=== PATIENT | female | born 1940 | race Caucasian/White ===

== ENCOUNTER 2018-09-05 03:47 | Inpatient (IN) | payer OTHER ==
[2018-09-05 04:19] LABS: Absolute Lymphocytes (CBC) 1.7 K/uL (0.7-4.9); Absolute Neutrophil 12.3 K/uL (1.8-8.0); Basophils % 0.5 % (0-1.3); Hematocrit 44.7 % (36.0-45.0); Lymphocytes % 11.2 % (15.3-44.8); MPV 9.3 fL (7.6-11.3); Monocytes % 6.7 % (3.3-12.3); RBC Red Blood Cell Count 4.97 M/uL (3.86-4.86)
[2018-09-05] MEDS ORDERED: IPRATROPIUM BROM 0.5MG/2.5ML ONE (04:23)
[2018-09-05] MEDS ORDERED: ALBUTEROL 2.5 MG/3 ML NEB SOL ONE (04:23)
[2018-09-05 04:29] LABS: Protime INR 0.91
[2018-09-05] MEDS ORDERED: ONDANSETRON 4 MG/2 ML VIAL IV PRN (04:50)
[2018-09-05] MEDS ORDERED: MAGNESIUM HYDROXIDE 8% 30 ML PO PRN (04:50)
[2018-09-05] MEDS ORDERED: ACETAMINOPHEN 500 MG TAB PO PRN (04:50)
[2018-09-05 04:52] LABS: ALT/SGPT 64 U/L (12-78); AST/SGOT 51 U/L (15-37); Alkaline Phosphatase 118 U/L (45-117); BUN Blood Urea Nitrogen 11 mg/dL (7-18); Bicarbonate 27 mmol/L (21-32); Bilirubin Direct 0.1 mg/dL (0-0.2); Bilirubin Total 0.4 mg/dL (0.2-1.0); Glucose Level 141 mg/dL (74-106); Magnesium 2.2 mg/dL (1.8-2.4); NT PRO-BNP 557 pg/mL (<450); Potassium 3.8 mmol/L (3.5-5.1); Sodium Level 138 mmol/L (136-145); Troponin (Emerg Dept Use Only) < 0.02 ng/mL (0.0-0.045)
[2018-09-05] MEDS ORDERED: ACETAMINOPHEN 325 MG TABLET ONE ×2 (05:00→05:01)
[2018-09-05] MEDS: NA CHLORIDE 0.9% 1,000 ML IV SCH ×2 (05:00→10:38)
--- NOTE | 2018-09-05 05:12 | EDPHYS ---
Physician Documentation [facility] Name: Sirena Nolan Age: 78 yrs Sex: Female : 1940 Arrival Date: 09/05/2018 Time: 03:49 Bed 4 Private MD: Maryam Brown ED Physician Robinson Brooks HPI: 09/05 04:58 This 78 yrs old Female presents to ER via Wheelchair with complaints of gs Breathing Difficulty. 04:58 The patient has shortness of breath at rest. Onset: The symptoms/episode began/occurred gs gradually, 2 day(s) ago, and became worse and became persistent. Duration: The symptoms are continuous. The patient's shortness of breath is aggravated by nothing, is alleviated by nothing. Associated signs and symptoms: Pertinent positives: non-productive cough, productive cough, fever, Pertinent negatives: chest pain. Severity of symptoms: At their worst the symptoms were severe in the emergency department the symptoms are unchanged. The patient has experienced similar episodes in the past, multiple times. The patient has not recently seen a physician. Historical: - Allergies: 04:23 Codeine; rr5 04:23 Prednisone; rr5 - Home Meds: 04:23 Protonix 40 mg Oral grps [Active]; Lexapro 20 mg Oral tab [Active]; sertraline 50 mg rr5 oral tab [Active]; atorvastatin 10 mg oral tab [Active]; Primidone Oral [Active]; topiramate oral oral [Active]; anoro 62.5/25mg [Active]; Ventolin Rotahaler/Rotacaps Inhl [Active]; Aspirin Oral [Active]; Vitamin D Oral [Active]; Vitamin B-12 Oral 1,000 mcg [Active]; ferrous sulfate 325 mg (65 mg iron) Oral tab [Active]; melatonin 10 mg Oral cap [Active]; - PMHx: 04:23 Anxiety; COPD; essential body tremors; Hypertension; Myocardial infarction; Pneumonia; rr5 - PSHx: 04:23 Hysterectomy; Tonsillectomy; adnoid surgery; Appendectomy; rr5 - Immunization history:: Adult Immunizations up to date, Flu vaccine is up to date. - Social history:: Smoking status: Patient uses tobacco products, 4 sticks per day, Patient uses alcohol, occasionally. Patient/guardian denies using street drugs. - Ebola Screening: : Patient negative for fever greater than or equal to 101.5 degrees Fahrenheit, and additional compatible Ebola Virus Disease symptoms Patient denies exposure to infectious person Patient denies travel to an Ebola-affected area in the 21 days before illness onset. ROS: 04:58 All other systems are negative. gs Exam: 04:58 Head/Face: Normocephalic, atraumatic. Eyes: Pupils equal round and reactive to light, gs extra-ocular motions intact. Lids and lashes normal. Conjunctiva and sclera are non-icteric and not injected. Cornea within normal limits. Periorbital areas with no swelling, redness, or edema. ENT: Nares patent. No nasal discharge, no septal abnormalities noted. Tympanic membranes are normal and external auditory canals are clear. Oropharynx with no redness, swelling, or masses, exudates, or evidence of obstruction, uvula midline. Mucous membranes moist. Neck: Trachea midline, no thyromegaly or masses palpated, and no cervical lymphadenopathy. Supple, full range of motion without nuchal rigidity, or vertebral point tenderness. No Meningismus. Chest/axilla: Normal chest wall appearance and motion. Nontender with no deformity. No lesions are appreciated. 04:58 Abdomen/GI: Soft, non-tender, with normal bowel sounds. No distension or tympany. No guarding or rebound. No evidence of tenderness throughout. Back: No spinal tenderness. No costovertebral tenderness. Full range of motion. Skin: Warm, dry with normal turgor. Normal color with no rashes, no lesions, and no evidence of cellulitis. MS/ Extremity: Pulses equal, no cyanosis. Neurovascular intact. Full, normal range of motion. Neuro: Awake and alert, GCS 15, oriented to person, place, time, and situation. Cranial nerves II-XII grossly intact. Motor strength 5/5 in all extremities. Sensory grossly intact. Cerebellar exam normal. Normal gait. 04:58 Constitutional: The patient appears alert, awake. 04:58 Constitutional: The patient appears in obvious distress, severely distressed. 04:58 Cardiovascular: Rate: tachycardic, Rhythm: regular, Pulses: no pulse deficits are appreciated, Heart sounds: normal. 04:58 ECG was reviewed by the Attending Physician. 04:58 Respiratory: moderate respiratory distress is noted, Respirations: tachypnea, Breath sounds: are clear throughout. Vital Signs: 03:55 BP 168 / 77; Pulse 112; Resp 28; Temp 98.9; Pulse Ox 90% on 3 lpm NC; rr5 04:00 Pulse Ox 92% on 4 lpm NC; rr5 04:25 BP 132 / 70; Pulse 99; Resp 25; Pulse Ox 100% on 3 lpm NC; Weight 44.91 kg; Height 5 rr5 ft. 4 in. (162.56 cm); Pain 0/10; 06:23 BP 118 / 64; Pulse 105; Resp 21; Pulse Ox 95% on 2 lpm NC; ea 04:25 Body Mass Index 16.99 (44.91 kg, 162.56 cm) rr5 MDM: 04:05 Patient medically screened. 05:07 Differential diagnosis: Bronchitis CHF exacerbation, Chronic Obstructive Pulmonary gs Disease Myocardial Infarction. Data reviewed: vital signs, nurses notes, and as a result, I will admit patient. Counseling: I had a detailed discussion with the patient and/or guardian regarding: the historical points, exam findings, and any diagnostic results supporting the discharge/admit diagnosis, lab results, radiology results, the need for further work-up and treatment in the hospital. 09/05 04:06 Order name: Basic Metabolic Panel; Complete Time: 05:06 09/05 04:06 Order name: CBC with Diff; Complete Time: 05:06 09/05 04:06 Order name: LFT's; Complete Time: 05:06 09/05 04:06 Order name: Magnesium; Complete Time: 05:06 09/05 04:06 Order name: NT PRO-BNP; Complete Time: 05:06 09/05 04:06 Order name: PT-INR; Complete Time: 05:06 09/05 04:06 Order name: Troponin (emerg Dept Use Only); Complete Time: 05:06 09/05 04:56 Order name: CBC with Automated Diff EDMS 09/05 04:56 Order name: CBC with Automated Diff EDMS 09/05 04:56 Order name: Comprehensive Metabolic Panel EDMS 09/05 04:56 Order name: Comprehensive Metabolic Panel EDMS 09/05 04:56 Order name: Lipid Profile EDMS 09/05 04:56 Order name: Lipid Profile EDMS 09/05 04:56 Order name: Magnesium EDMS 09/05 04:06 Order name: XRAY Chest (1 view) 09/05 04:06 Order name: EKG; Complete Time: 04:08 09/05 04:06 Order name: Cardiac monitoring; Complete Time: 04:10 09/05 04:06 Order name: EKG - Nurse/Tech; Complete Time: 04:10 09/05 04:06 Order name: IV Saline Lock; Complete Time: 04:17 09/05 04:06 Order name: Labs collected and sent; Complete Time: 04:12 09/05 04:56 Order name: CONS Physician Consult EDMS 09/05 04:56 Order name: Regular EDMS 09/05 04:56 Order name: Magnesium EDMS 09/05 04:56 Order name: Phosphorus EDMS 09/05 04:56 Order name: Phosphorus EDMS 09/05 05:07 Order name: Blood Culture* 09/05 04:06 Order name: O2 Per Protocol; Complete Time: 04:35 09/05 04:06 Order name: O2 Sat Monitoring; Complete Time: 04:35 EC:58 Rate is 98 beats/min. Rhythm is regular. RI interval is normal. QRS interval is normal. gs QT interval is normal. ST Segment is depressed in leads II, III, aVF. Clinical impression: NSR w/ Non-specific ST/T Changes. Interpreted by me. Administered Medications: 04:13 Drug: Albuterol 2.5 mg Route: Inhalation; ea 04:13 Drug: AtroVENT Aerosol 0.5 mg Route: Inhalation; ea 04:54 Drug: Tylenol 650 mg Route: PO; ea 05:30 Follow up: Response: No adverse reaction; Pain is decreased ea 05:18 Drug: LevaQUIN 750 mg Volume: 150 ml; Route: IVPB; Infused Over: 90 mins; Site: left ea antecubital; Disposition: 05:07 Critical Care:. Disposition: 09/05/18 05:10 Hospitalization ordered by Demetrio Wilkins for Inpatient Admission. Preliminary diagnosis are Mild persistent asthma with (acute) exacerbation, Hypoxemia. - Bed requested for Telemetry/MedSurg (Inpatient). - Status is Inpatient Admission. iw - Condition is Stable. - Problem is an acute exacerbation. - Symptoms have improved. UTI on Admission? No Critical care time excluding procedures: 05:07 Critical care time: Bedside Care: 10 minutes, Consultation: 10 minutes, Family gs Intervention: 10 minutes. Total time: 30 minutes Signatures: Dispatcher [employer] EDMS Yashira Reardon RN RN Matilde Contreras RN Diya Moore RN CHRISTAL iw Renetta Royal, RN Robinson Hercules ea, MD MD gs Roque, Raymond RN RN rr5 Corrections: (The following items were deleted from the chart) 05:29 05:10 Hospitalization Ordered by Demetrio Wilkins MD for Inpatient Admission. Preliminary diagnosis is Mild persistent asthma with (acute) exacerbation; Hypoxemia. Bed requested for Telemetry/MedSurg (Inpatient). Status is Inpatient Admission. Condition is Stable. Problem is an acute exacerbation. Symptoms have improved. UTI on Admission? No. gs 08:30 05:29 09/05/2018 05:10 Hospitalization Ordered by Demetrio Wilkins MD for Inpatient iw Admission. Preliminary diagnosis is Mild persistent asthma with (acute) exacerbation; Hypoxemia. Bed requested for Telemetry/MedSurg (Inpatient). Status is Inpatient Admission. Condition is Stable. Problem is an acute exacerbation. Symptoms have improved. UTI on Admission? No. mw
--- NOTE | 2018-09-05 05:12 | ER ---
Nurse's Notes [facility] Name: Sirena Nolan Age: 78 yrs Sex: Female : 1940 Arrival Date: 09/05/2018 Time: 03:49 Bed 4 Private MD: Maryam Brown Diagnosis: Mild persistent asthma with (acute) exacerbation;Hypoxemia Presentation: 09/05 03:55 Presenting complaint: Patient states: I started having difficulty of breathing then few rr5 hours ago I vomited fresh blood i don't know if that is because I'm coughing too much with phlegm. 03:55 Transition of care: patient was not received from another setting of care. Onset of rr5 symptoms was September 05, 2018. Risk Assessment: Do you want to hurt yourself or someone else? Patient reports no desire to harm self or others. Initial Sepsis Screen: Does the patient meet any 2 criteria? No. Patient's initial sepsis screen is negative. Does the patient have a suspected source of infection? No. Patient's initial sepsis screen is negative. Note in via wheelchair with oxygen attached at 2 liters via nasal cannula. Care prior to arrival: oxygen therapy. 03:55 Method Of Arrival: Wheelchair rr5 03:55 Acuity: AISHA 3 rr5 Triage Assessment: 04:00 General: Appears uncomfortable, Behavior is anxious, restless. Respiratory: Reports ea shortness of breath at rest Airway is patent Respiratory effort is labored, Respiratory pattern is tachypnea the patient has moderate shortness of breath. Respiratory: Onset: The symptoms/episode began/occurred this morning. Respiratory: Breath sounds are diminished in left posterior lower lobe and right posterior middle lobe. Derm: Skin is dry, Skin is pale, Skin temperature is warm. Historical: - Allergies: 04:23 Codeine; rr5 04:23 Prednisone; rr5 - Home Meds: 04:23 Protonix 40 mg Oral grps [Active]; Lexapro 20 mg Oral tab [Active]; sertraline 50 mg rr5 oral tab [Active]; atorvastatin 10 mg oral tab [Active]; Primidone Oral [Active]; topiramate oral oral [Active]; anoro 62.5/25mg [Active]; Ventolin Rotahaler/Rotacaps Inhl [Active]; Aspirin Oral [Active]; Vitamin D Oral [Active]; Vitamin B-12 Oral 1,000 mcg [Active]; ferrous sulfate 325 mg (65 mg iron) Oral tab [Active]; melatonin 10 mg Oral cap [Active]; - PMHx: 04:23 Anxiety; COPD; essential body tremors; Hypertension; Myocardial infarction; Pneumonia; rr5 - PSHx: 04:23 Hysterectomy; Tonsillectomy; adnoid surgery; Appendectomy; rr5 - Immunization history:: Adult Immunizations up to date, Flu vaccine is up to date. - Social history:: Smoking status: Patient uses tobacco products, 4 sticks per day, Patient uses alcohol, occasionally. Patient/guardian denies using street drugs. - Ebola Screening: : Patient negative for fever greater than or equal to 101.5 degrees Fahrenheit, and additional compatible Ebola Virus Disease symptoms Patient denies exposure to infectious person Patient denies travel to an Ebola-affected area in the 21 days before illness onset. Screenin:00 Abuse screen: Denies threats or abuse. Denies injuries from another. Nutritional rr5 screening: No deficits noted. Tuberculosis screening: No symptoms or risk factors identified. Fall Risk IV access (20 points). Gait- Normal/Bed Rest/Wheelchair (0 pts) Total Goff Fall Scale indicates No Risk (0-24 pts). Assessment: 04:00 General: Appears distressed, uncomfortable, Behavior is calm, cooperative, appropriate rr5 for age. Pain: Denies pain. 04:00 Neuro: Level of Consciousness is awake, alert, obeys commands, Oriented to person, rr5 place, time, situation, Appropriate for age. Cardiovascular: Rhythm is sinus tachycardia. Respiratory: Airway is patent Respiratory effort is even, with nasal flaring, pursed lip. GI: No signs and/or symptoms were reported involving the gastrointestinal system. : No signs and/or symptoms were reported regarding the genitourinary system. EENT: No signs and/or symptoms were reported regarding the EENT system. Derm: Skin is intact, Skin temperature is warm. Musculoskeletal: Capillary refill < 3 seconds, Range of motion: intact in all extremities. 04:20 Reassessment: Patient appears in no apparent distress at this time. I feel much better rr5 now. maintaining on oxygen therapy Patient states feeling better. Patient states symptoms have improved. 05:10 Reassessment: Patient appears in no apparent distress at this time. dr. paredes came and rr5 assess the patient and explained the need for admission, patient agreed with the plan. Patient states feeling better. Patient states symptoms have improved. 05:54 Reassessment: Patient and/or family updated on plan of care and expected duration. Pain ea level reassessed. Pt resting with eyes closed, respirations even and unlabored, chest expansions even and symmetrical. No s/s of pain or discomfort noted at this time. 06:23 Reassessment: Patient and/or family updated on plan of care and expected duration. Pain ea level reassessed. Patient is alert, oriented x 3, equal unlabored respirations, skin warm/dry/pink. Patient states symptoms have improved. Vital Signs: 03:55 BP 168 / 77; Pulse 112; Resp 28; Temp 98.9; Pulse Ox 90% on 3 lpm NC; rr5 04:00 Pulse Ox 92% on 4 lpm NC; rr5 04:25 BP 132 / 70; Pulse 99; Resp 25; Pulse Ox 100% on 3 lpm NC; Weight 44.91 kg; Height 5 rr5 ft. 4 in. (162.56 cm); Pain 0/10; 06:23 BP 118 / 64; Pulse 105; Resp 21; Pulse Ox 95% on 2 lpm NC; ea 04:25 Body Mass Index 16.99 (44.91 kg, 162.56 cm) rr5 ED Course: 03:49 Patient arrived in ED. am2 03:50 Maryam Brown MD is Private Physician. am2 03:58 Keshav Allison, CHRISTAL is Primary Nurse. rr5 04:00 Arm band placed on. EKG completed in triage. Results shown to MD. rr5 04:00 Patient has correct armband on for positive identification. Placed in gown. Bed in low ea position. Call light in reach. Side rails up X2. 04:01 Triage completed. rr5 04:05 Robinson Brooks MD is Attending Physician. gs 04:10 Inserted saline lock: 20 gauge in left antecubital area, using aseptic technique. Blood rr5 collected. 04:16 Initial Neb Treatment Given as ordered Patient was instructed and evaluated on rr5 procedure Patient tolerated procedure well without adverse effect. 04:20 X-ray completed. Portable x-ray completed in exam room. Patient tolerated procedure kw well. 04:21 XRAY Chest (1 view) In Process Unspecified. EDMS 05:10 Demetrio Paredes MD is Hospitalizing Provider. 05:54 Patient admitted, IV remains in place. ea 05:54 No provider procedures requiring assistance completed. ea 08:30 Primary Nurse role handed off by Keshav Allison, RN iw 08:30 Diya Harris, RN is Primary Nurse. iw Administered Medications: 04:13 Drug: Albuterol 2.5 mg Route: Inhalation; ea 04:13 Drug: AtroVENT Aerosol 0.5 mg Route: Inhalation; ea 04:54 Drug: Tylenol 650 mg Route: PO; ea 05:30 Follow up: Response: No adverse reaction; Pain is decreased ea 05:18 Drug: LevaQUIN 750 mg Volume: 150 ml; Route: IVPB; Infused Over: 90 mins; Site: left ea antecubital; Outcome: 05:10 Decision to Hospitalize by Provider. gs 05:54 Instructed on the need for admit, Demonstrated understanding of instructions. ea 08:30 Patient left the ED. iw 08:30 Admitted to Med/surg accompanied by tech. iw 08:30 Condition: good Signatures: Dispatcher [employer] EDMS Diya Harris, CHRISTAL SIEGEL Dalia Gaines Amanda am2 Renetta Royal RN RN ea Starr, Gregory, MD MD Keshav Allison, RN RN rr5
[2018-09-05] MEDS ORDERED: Levofloxacin 750mg IV 750 MG/150 ML BAG IV ONE (05:20)
[2018-09-05] MEDS ORDERED: METHYLPREDNISOLONE 125 MG INJ IV ONE (06:41)
--- NOTE | 2018-09-05 07:23 | EKG ---
Test Date: 2018-09-05 Test Time: 03:58:57 Customer Business Manager: JOHN MEASUREMENT RESULTS: Intervals: Rate: 98 GA: 144 QRSD: 72 QT: 358 QTc: 457 [place]: P: 83 GA: 144 QRS: 46 T: 33 INTERPRETIVE STATEMENTS: Normal sinus rhythm Normal ECG Compared to ECG 04/22/2016 14:23:03 Sinus arrhythmia no longer present ST (T wave) deviation no longer present Possible ischemia no longer present Electronically Signed On 09-05-18 07:14:52 TICKETING AGENT by Jones Dunne
[2018-09-05] MEDS: ALBUTEROL 2.5 MG/3 ML NEB SOL NEB SCH ×3 (08:00→20:15)
[2018-09-05] MEDS: IPRATROPIUM BROM 0.5MG/2.5ML NEB SCH ×3 (08:00→20:15)
--- NOTE | 2018-09-05 08:22 | RAD REPORT ---
EXAM DESCRIPTION: RAD - Chest Single View - 09/05/2018 4:24 am CLINICAL HISTORY: CHEST PAIN Chest pain. COMPARISON: Chest Single View dated 04/22/2016; Chest Single View dated 02/27/2016; Chest Single View dated 02/22/2016; Chest Single View dated 02/20/2016 FINDINGS: Portable technique limits examination quality. Prominent emphysematous changes are present throughout the lungs. Mild reticular opacities both lung bases are likely chronic, although mild superimposed pneumonitis is possible. The heart is normal in size. No displaced fractures.
[2018-09-05] MEDS ORDERED: AZITHROMYCIN IV 250 MG in NA CHLORIDE 0.9% 250 ML IVPB SCH (09:00)
[2018-09-05] MEDS ORDERED: CEFTRIAXONE/SWI 1gm 1 GM/10 ML SYR IV SCH (09:00)
[2018-09-05 09:46] VITALS: BMI 16.9
[2018-09-05] MEDS ORDERED: CEFTRIAXONE 1 GM/NS 50 ML 1 GM/50 ML BAG IV SCH (10:00)
--- NOTE | 2018-09-05 10:08 | P.HP ---
Certification for Inpatient Patient admitted to: Inpatient With expected LOS: >2 Midnights Patient will require the following post-hospital care: None Practitioner: I am a practitioner with admitting privileges, knowledge of patient current condition, hospital course, and medical plan of care. Services: Services provided to patient in accordance with Admission requirements found in Title 42 Section 412.3 of the Code of Federal Regulations Patient History Date of Service: 09/05/18 Reason for admission: COPD exacerbation with left lower lobe pneumonia History of Present Illness: Patient is a 78-year-old female who came to the hospital with shortness of breath. Patient wheezing and congestion. She was found to have a COPD exacerbation. Patient was also seen to have a left lower lobe pneumonia on her chest x-ray. She was started on IV antibiotics. Patient was also given nebs and steroids in the ER. She was given gentle hydration as well. She will be admitted to the hospital for further evaluation. She is scheduled for an MRI tomorrow at 2:30 a.m. as an outpatient. If she is feeling better we can discharge her prior then but otherwise she will have to reschedule. Allergies codeine Allergy (Verified 01/23/16 13:58) Itching prednisone Allergy (Verified 01/23/16 13:58) elevated heart rate Home Medications: Topiramate [Topamax*] 100 mg PO DAILY 10/17/15 Topiramate [Topamax*] 200 mg PO BEDTIME 10/17/15 Levetiracetam [Keppra] 500 mg PO BID #60 tablet 11/05/15 Magnesium Oxide [Mag 0X*] 400 mg PO BID #60 tab 11/05/15 Metoprolol Tartrate [Lopressor*] 25 mg PO BID 6AM 6PM #60 tab 11/05/15 Pantoprazole [Protonix Tab*] 40 mg PO DAILYAC #30 tab 11/05/15 clonazePAM [Klonopin*] 0.5 mg PO BID #60 tab 11/05/15 Escitalopram [Lexapro*] 20 mg PO DAILY 01/17/16 Primidone [Mysoline *] 50 mg PO BID 01/17/16 Primidone [Mysoline *] 250 mg PO BID 01/17/16 Chlorhexidine Gluconate [Hibiclens] 15 ml TP DAILY #1 liquid 02/26/16 Dexamethasone [Decadron*] 2 mg PO BID #10 tab 02/26/16 Ipratropium Neb [Atrovent*] 0.5 mg IH [id number] PRN #90 amp 02/26/16 Mupirocin Cream [Bactroban 2% Cream] 15 appl TOP DAILY #60 tube 02/26/16 Smz./Tmp. [Bactrim Ds 800 MG/160 MG*] 1 tab PO BID #10 tab 02/26/16 levoFLOXacin [Levaquin*] 500 mg PO DAILY #5 tab 02/26/16 - Past Medical/Surgical History Has patient received pneumonia vaccine in the past: Yes Diabetic: No -: Severe COPD -: Essential tremors, Neurology-Dr. 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 - Family History Mother Medical History: Heart disease, Other (see notes) Father Medical History: Cancer Brother Medical History: Other (see notes) Notes: Parkinson's - Social History Smoking Status: Former smoker Alcohol use: Yes CD- Drugs: No Caffeine use: Yes Place of Residence: Home Review of Systems 10-point ROS is otherwise unremarkable Physical Examination - Vital Signs Temperature: 98.9 F Blood Pressure: 118/64 Pulse: 105 Respirations: 21 Pulse Ox (%): 98 - Physical Exam General: Alert, In no apparent distress, Oriented x3 HEENT: Atraumatic, PERRLA, Mucous membr. moist/pink, EOMI, Sclerae nonicteric Neck: Supple, 2+ carotid pulse no bruit, No LAD, Without JVD or thyroid abnormality Respiratory: Diminished, Expiratory wheezes Cardiovascular: Regular rate/rhythm, Normal S1 S2 Gastrointestinal: Normal bowel sounds, Soft and benign, Non-distended, No tenderness Musculoskeletal: No swelling, No contractures, No tenderness Integumentary: No rashes Neurological: Normal gait, Normal speech, Normal tone, Sensation intact, Cranial nerves 3-12 intact, Normal affect, Abnormal strength Lymphatics: No axilla or inguinal lymphadenopathy - Studies Laboratory Data (last 24 hrs) 09/05/18 04:11: PT 10.7, INR 0.91 09/05/18 04:11: WBC 15.4 H, Hgb 14.9, Hct 44.7, Plt Count 210 09/05/18 04:11: Sodium 138, Potassium 3.8, BUN 11, Creatinine 0.75, Glucose 141 H, Magnesium 2.2, Total Bilirubin 0.4, AST 51 H, ALT 64, Alkaline Phosphatase 118 H Assessment & Plan - Problems (Diagnosis) (1) COPD exacerbation Onset Date: 10/17/15 Current Visit: No Status: Acute (2) Pneumonia Onset Date: 11/06/15 Current Visit: No Status: Acute (3) Seizure as late effect of cerebrovascular accident (CVA) Current Visit: No Status: Acute (4) Anxiety Onset Date: 02/20/16 Current Visit: No Status: Chronic (5) Essential tremor Onset Date: 02/20/16 Current Visit: No Status: Chronic (6) Atrial fibrillation Onset Date: 02/20/16 Current Visit: No Status: Ruled-out Qualifiers: - Plan Plan: 1. Continue with IV antibiotics 2. Awaiting sputum and blood culture; 3. Repeat chest x-ray in AM 4. Will order CT scan of the chest if pneumonia is not improving 5. Monitor respiratory status closely 6. Continue with nebs as needed 7. O2 per protocol 8. Continue with gentle hydration 9. Repeat labs including CBC and renal function in a.m. 10. GI and DVT prophylaxis Discharge Plan: Home Plan to discharge in: Greater than 2 days - Advance Directives Does patient have a Living Will: No Does patient have a Durable POA for Healthcare: No - Code Status/Comfort Care Code Status Assessed: Yes Code Status: Full Code Critical Care: No Time Spent Managing PTS Care (In Minutes): 50
[2018-09-05] MEDS: ENOXAPARIN 40 MG/0.4 ML SQ SCH (10:39)
--- NOTE | 2018-09-05 12:41 | P.CNS ---
Date of Consult: 09/05/18 Chief Complaint: COPD EXACERBATION History of Present Illness: PATIENT IS 78 YEARS OF AGE WELL KNOWN TO ME WITH A HISTORY OF COPD STILL CONTINUES TO SMOKE UNDER HAS BEEN HAVING PROBLEMS FOR THE PAST 3-4 WEEKS WORSE OVER THE PAST 2-3 DAYS COMPLAINING OF SHORTNESS OF BREATH PRODUCTIVE COUGH SPUTUM CHANGE IN COLOR ALSO HAS SOME HEMOPTYSIS THIS 1 TIME. PATIENT IS COMPLIANT WITH IT INHALERS AT HOME Allergies codeine Allergy (Verified 01/23/16 13:58) Itching prednisone Allergy (Verified 01/23/16 13:58) elevated heart rate Home Medications: Topiramate [Topamax*] 100 mg PO BID 10/17/15 Pantoprazole [Protonix Tab*] 40 mg PO DAILYAC #30 tab 11/05/15 clonazePAM [Klonopin*] 0.5 mg PO BID #60 tab 11/05/15 Escitalopram [Lexapro*] 20 mg PO DAILY 01/17/16 Primidone [Mysoline *] 250 mg PO BID 01/17/16 Albuterol Sulfate [Ventolin Hfa] 1 in IN BID PRN 09/05/18 Aspirin 81 mg PO DAILY 09/05/18 Atorvastatin Calcium [Lipitor] 10 mg PO DAILY 09/05/18 Cholecalciferol (Vitamin D3) [Vitamin D 1000 Iu Tab] 2,000 unit PO DAILY Ferrous Sulfate [Iron] 325 mg PO DAILY 09/05/18 Sertraline [Zoloft] 50 mg PO DAILY 09/05/18 Umeclidinium Brm/Vilanterol Tr [Anoro Ellipta 62.5-25 Mcg INH] 1 each IH DAILY 09/05/18 - Past Medical/Surgical History Diabetic: No -: Severe COPD -: Essential tremors, Neurology-Dr. 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 - Family History Mother Medical History: Heart disease, Other (see notes) Father Medical History: Cancer Brother Medical History: Other (see notes) Notes: Parkinson's - Social History Smoking Status: Unknown if ever smoked Alcohol use: Yes CD- Drugs: No Caffeine use: Yes Place of Residence: Home Review of Systems 10-point ROS is otherwise unremarkable General: Weakness Respiratory: Cough, Shortness of Breath Physical Examination Temp Pulse Resp BP Pulse Ox 98.9 F 105 H 21 H 118/64 98 09/05/18 10:09 09/05/18 10:09 09/05/18 10:09 09/05/18 10:09 09/05/18 10:09 General: Alert, Mild distress HEENT: Atraumatic Respiratory: Expiratory wheezes Cardiovascular: No edema, Regular rate/rhythm, Normal S1 S2 Gastrointestinal: Normal bowel sounds, Soft and benign Laboratory Data (last 24 hrs) 09/05/18 04:11: PT 10.7, INR 0.91 09/05/18 04:11: WBC 15.4 H, Hgb 14.9, Hct 44.7, Plt Count 210 09/05/18 04:11: Sodium 138, Potassium 3.8, BUN 11, Creatinine 0.75, Glucose 141 H, Magnesium 2.2, Total Bilirubin 0.4, AST 51 H, ALT 64, Alkaline Phosphatase 118 H - Problems (1) COPD exacerbation Onset Date: 10/17/15 Current Visit: No Status: Acute Plan: Patient is 78 years of age admitted with a presumed COPD exacerbation patient's white count is mildly elevated chest x-ray COPD changes questionable pneumonia will repeat AP and lateral chest x-ray change to p.o. antibiotics and p.o. steroids continue with bronchodilators cannot excluded pneumonia however she is clinically stable eating and drinking to tolerate p.o. antibiotics patient is compliant with the bronchodilators
[2018-09-05] MEDS: levoFLOXacin 500 MG TAB PO SCH (14:38)
--- NOTE | 2018-09-05 14:41 | RAD REPORT ---
EXAM DESCRIPTION: RAD - Chest Pa And Lat (2 Views) - 09/05/2018 2:35 pm CLINICAL HISTORY: Possible pneumonia Chest pain. COMPARISON: Chest Single View dated 09/05/2018; Chest Single View dated 04/22/2016; Chest Single View d ated 02/27/2016; Chest Single View dated 02/22/2016 TECHNIQUE: PA and lateral views of the chest were obtained. FINDINGS: The lungs are hyperexpanded compatible with COPD. The heart is upper limit of normal in si ze. No fracture or aggressive bony process. IMPRESSION: COPD without acute process identified.
[2018-09-05] MEDS: ATORVASTATIN 10 MG TAB PO SCH (21:19)
[2018-09-05] MEDS: TOPIRAMATE 100 MG TAB PO SCH (21:20)
[2018-09-05] MEDS: DEXAMETHASONE 4 MG TAB PO SCH (21:20)
[2018-09-05] MEDS: PRIMIDONE 250 MG TAB PO SCH (21:20)
[2018-09-05] MEDS: clonazePAM 0.5 MG TAB PO SCH (22:04)
[2018-09-06] MEDS: IPRATROPIUM BROM 0.5MG/2.5ML NEB SCH ×4 (02:02→19:48)
[2018-09-06] MEDS: ALBUTEROL 2.5 MG/3 ML NEB SOL NEB SCH ×4 (02:02→19:48)
[2018-09-06] MEDS: PANTOPRAZOLE 40MG TABLET PO SCH (05:45)
[2018-09-06 05:59] LABS: Absolute Lymphocytes (CBC) 1.5 K/uL (0.7-4.9); Absolute Monocytes 1.1 K/uL (0.1-1.3); Absolute Neutrophil 12.4 K/uL (1.8-8.0); Basophils % 0.3 % (0-1.3); Hematocrit 36.1 % (36.0-45.0); Lymphocytes % 10.1 % (15.3-44.8); MPV 9.6 fL (7.6-11.3); RBC Red Blood Cell Count 4.03 M/uL (3.86-4.86)
[2018-09-06 06:23] LABS: Albumin 2.9 g/dL (3.4-5.0); Bilirubin Total 0.4 mg/dL (0.2-1.0); Magnesium 2.1 mg/dL (1.8-2.4); Phosphorus 3.1 mg/dL (2.5-4.9); Potassium 4.1 mmol/L (3.5-5.1); Protein, Total 6.3 g/dL (6.4-8.2)
--- NOTE | 2018-09-06 08:58 | P.PN ---
Subjective Date of Service: 09/06/18 Chief Complaint: COPD EXACERBATION No change in her condition still complains of shortness of breath productive cough and she had a gain had hemoptysis chest x-ray did not show any evidence of pneumonia complaining of shaking chills white count is mildly elevated Review of Systems General: Weakness Respiratory: Cough, Shortness of Breath Physical Examination - Vital Signs Temperature: 98.5 F Blood Pressure: 119/70 Pulse: 74 Respirations: 20 Pulse Ox (%): 95 - Physical Exam General: Alert, Oriented x3 HEENT: Atraumatic Neck: Supple Respiratory: Expiratory wheezes Cardiovascular: No edema, Regular rate/rhythm, Normal S1 S2 Gastrointestinal: Normal bowel sounds, Soft and benign Assessment & Plan - Problems (Diagnosis) (1) COPD exacerbation Onset Date: 10/17/15 Current Visit: No Status: Acute Plan: Patient is 78 years of age admitted with COPD exacerbation still complaining of hemoptysis chest x-ray PA and lateral does not show any evidence of pneumonia complains of some chills continue with present medications CT chest without contrast sputum culture (2) Aspiration of foreign body in respiratory tract Current Visit: Yes Status: Acute Plan: On CT scan there is a heavily calcified density in the right lower lobe which was not present before according to the patient she denies aspirating at both she does not recall any incidence of aspiration will plan to do a bronchoscopy tomorrow I have informed the patient that if I am not able to remove she be transferred to [place] Discussed with patient the risks and benefit of bronchoscopy she is high risk due to her severe COPD
[2018-09-06] MEDS: PRIMIDONE 250 MG TAB PO SCH ×2 (09:22→21:02)
[2018-09-06] MEDS: ESCITALOPRAM 20 MG TAB PO SCH (09:23)
[2018-09-06] MEDS: DEXAMETHASONE 4 MG TAB PO SCH ×2 (09:23→21:02)
[2018-09-06] MEDS: SERTRALINE HCL 50 MG TAB PO SCH (09:23)
[2018-09-06] MEDS: clonazePAM 0.5 MG TAB PO SCH ×2 (09:24→21:02)
[2018-09-06] MEDS: TOPIRAMATE 100 MG TAB PO SCH ×2 (09:24→21:02)
[2018-09-06] MEDS: FERROUS SULFATE 325 MG TAB PO SCH (09:24)
[2018-09-06] MEDS: ASPIRIN 81 MG CHEWABLE TABLET PO SCH (09:25)
[2018-09-06] MEDS: ENOXAPARIN 40 MG/0.4 ML SQ SCH (09:25)
[2018-09-06] MEDS: levoFLOXacin 500 MG TAB PO SCH (09:25)
--- NOTE | 2018-09-06 11:14 | RAD REPORT ---
EXAM DESCRIPTION: CT - Thorax Wo Con CLINICAL HISTORY: Chest pain Hemoptysis COPD COMPARISON: Chest For Pe Angio dated 02/19/2016; Chest Pa And Lat (2 Views) dated 09/05/2018; Chest Sin gle View dated 09/05/2018; Head C Spine Cap W Con dated 04/22/2016 FINDINGS: Prominent emphysematous changes are present throughout the lungs. Linear scarring is noted in the right lung base. Subtle area of tree-in-bud opacity and pleural based irregular opacity noted in the superior segment right lower lobe. A heavily calcified 15 mm structure is present in the post erior right lower lobe bronchus (image 32/66). This is possibly an aspirated tooth, clinical correlat ion is recommended. This finding was not present on comparative CT chest. No pleural thickening or pl eural effusion. No pneumothorax. No axillary, mediastinal or hilar adenopathy. No concerning bony finding. No gross upper abdominal finding. All CT scans are performed using dose optimization technique as appropriate and may include automated exposure control or mA/KV adjustment according to patient size. IMPRESSION: Prominent COPD noted. Heavily calcified 15 mm lesion within the right posterior bronchus has the appearance of an aspirated tooth. Advise clinical correlation. Findings were discussed Dr. Bethea 11:10 a.m. 09/06/2018 by telephone.
--- NOTE | 2018-09-06 20:14 | PN ---
Date of Progress Note: 09/06/2018 Subjective: The patient is seen and examined. Chart reviewed and case discussed with RN and Dr. Medardo olivera. The patient is still having some difficulty breathing, cough and sputum production still ongo ing. Code Status: Full code. Medications: List reviewed. Physical Examination: Vital Signs: Temperature 98.5, heart rate 74, blood pressure 119/70, respirations 20, and O2 of 95% on 2 L via nasal cannula. General: Awake, alert, and oriented x3. Elderly female, frail, cachectic, ill appearing. CV: S1 and S2. Regular rate and rhythm. Peripheral pulses present. Respiratory: Diminished breath sounds. Expiratory wheezes heard. No use of accessory muscles. Gastrointestinal: Abdomen is soft, nontender, and nondistended. Positive bowel sounds. Extremities: No clubbing, cyanosis, or edema. No calf tenderness. Neurologic: Cranial nerves 2 through 12 intact grossly. No focal neurological deficit. Speech is n ormal. Laboratory Data: Sodium 138, potassium 4.1, chloride 106, CO2 of 28, BUN 12, creatinine 0.76, glucos e 132, calcium 8, phosphorus 3.1, and magnesium 2.1. Albumin 2.9. WBC 15, H and H of 12.1 and 36.1, platelets 157, neutrophils 82%. Blood cultures, no growth to date. Sputum cultures pending. CT sc an of the chest shows heavily calcified 15 mm lesion within the right posterior bronchus, has the benigno earance of an aspirated tooth, advised clinical correlation, no adenopathy. Assessment And Plan: A 78-year-old female with, 1.Acute chronic obstructive pulmonary disease exacerbation. Continue with steroids and nebulizer tr eatment. I appreciate pulmonology input. 2.Pneumonia. CT of the chest shows possible aspiration of tooth, may need bronchoscopy. We will di scuss with Dr. Bethea. 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 4.History of cerebrovascular accident without any residual deficit. 5.Generalized anxiety disorder. 6.Essential tremor. 7.Atrial fibrillation, paroxysmal. 8.Malnutrition. BMI is 17. Albumin is 2.9. The patient likely does have some mild protein calorie malnutrition as well. We will encourage p.o. intake. We will provide protein supplements. 9.Gastrointestinal and deep venous thrombosis prophylaxis addressed. SA/MODL Voice ID: [id number] Report ID: [id number]
[2018-09-06] MEDS ORDERED: ENSURE HIGH PROTEIN 237 ML CAN PO SCH (21:00)
[2018-09-06] MEDS: ATORVASTATIN 10 MG TAB PO SCH (21:02)
[2018-09-07] MEDS: ALBUTEROL 2.5 MG/3 ML NEB SOL NEB SCH ×5 (02:00→20:28)
[2018-09-07] MEDS: IPRATROPIUM BROM 0.5MG/2.5ML NEB SCH ×4 (02:00→20:28)
[2018-09-07 06:07] LABS: Hematocrit 36.6 % (36.0-45.0); MPV 9.6 fL (7.6-11.3); RBC Red Blood Cell Count 4.05 M/uL (3.86-4.86)
[2018-09-07] MEDS: PANTOPRAZOLE 40MG TABLET PO SCH (06:30)
[2018-09-07 06:46] LABS: ALT/SGPT 52 U/L (12-78); AST/SGOT 39 U/L (15-37); Alkaline Phosphatase 72 U/L (45-117); BUN Blood Urea Nitrogen 14 mg/dL (7-18); Bicarbonate 27 mmol/L (21-32); Bilirubin Total 0.3 mg/dL (0.2-1.0); Glucose Level 119 mg/dL (74-106); Potassium 3.9 mmol/L (3.5-5.1); Protein, Total 6.3 g/dL (6.4-8.2); Sodium Level 139 mmol/L (136-145)
[2018-09-07] MEDS: ESCITALOPRAM 20 MG TAB PO SCH (08:00)
[2018-09-07] MEDS: PRIMIDONE 250 MG TAB PO SCH ×2 (08:00→20:16)
[2018-09-07] MEDS: SERTRALINE HCL 50 MG TAB PO SCH (08:00)
[2018-09-07] MEDS: TOPIRAMATE 100 MG TAB PO SCH ×2 (08:00→20:16)
[2018-09-07] MEDS ORDERED: KCL 20 MEQ/100 mL IVPB 20 MEQ/100 ML BAG IV SCH (08:00)
[2018-09-07] MEDS: FERROUS SULFATE 325 MG TAB PO SCH (08:01)
[2018-09-07] MEDS: DEXAMETHASONE 4 MG TAB PO SCH ×2 (08:01→20:16)
[2018-09-07] MEDS: levoFLOXacin 500 MG TAB PO SCH (08:01)
[2018-09-07] MEDS: clonazePAM 0.5 MG TAB PO SCH ×2 (08:01→20:16)
[2018-09-07] MEDS: ASPIRIN 81 MG CHEWABLE TABLET PO SCH (08:01)
[2018-09-07] MEDS ORDERED: NA CHLORIDE 0.9% 250 ML ONE (08:56)
[2018-09-07] MEDS ORDERED: GUAIFENESIN/CODEINE 5ML UCUP PO PRN (09:30)
[2018-09-07] MEDS ORDERED: GUAIFENESIN/DM 5 ML UCUP PO PRN (10:21)
[2018-09-07] MEDS ORDERED: LIDOCAINE 4% TOP SOLUTION TOP ONE (11:15)
[2018-09-07] MEDS ORDERED: Phenylephrine HCl 10 MG/ML 1 ML VIAL ONE (11:17)
[2018-09-07] MEDS ORDERED: Ringers Lactate 1,000 ML IV ONE (11:17)
[2018-09-07] MEDS ORDERED: LIDOCAINE 1% MPF 2 ML AMPULE ONE (11:49)
[2018-09-07] MEDS ORDERED: FENTANYL CITR 100 MCG/2 ML ONE (11:49)
[2018-09-07] MEDS ORDERED: PROPOFOL 200 MG/20 ML VIAL IV ONE (11:49)
[2018-09-07] MEDS ORDERED: ALBUTEROL 2.5 MG/3 ML NEB SOL ONE (11:51)
[2018-09-07] MEDS ORDERED: GLYCOPYRROLATE 0.2 MG/ML SYR ONE (11:52)
[2018-09-07] MEDS ORDERED: LIDOCAINE 1% MPF 30 ML VIAL ONE (11:54)
[2018-09-07] MEDS ORDERED: LIDOCAINE VISCOUS 2% SOLN 15 ML UDC ONE (11:54)
--- NOTE | 2018-09-07 12:14 | P.OP ---
Date of Service: 09/07/18 (Procedure performed bronchoscopy with endobronchial biopsy) Findings and Operative Technique Patient is 78 years of age admitted with cough hemoptysis shortness of breath as found to have a foreign body presumed aspiration in her right lower lobe bronchus Findings after obtaining informed consent from the patient she was premedicated by anesthesia finding normal vocal cords normal brigid normal left-sided in anatomy normal right upper lobe for over on the right lower lobe she had a foreign body aspiration very friable suspect aspiration of a luminal for alert for equivalent the significant amount of inflammation Patient to be transferred [facility] under thoracic surgery
[2018-09-07] MEDS ORDERED: PIPER/TAZO/NS 3.375gm 3.375 GM/100 ML BAG IVPB SCH (17:00)
--- NOTE | 2018-09-07 17:18 | PN ---
Date of Progress Note: 09/07/2018 Subjective: The patient is seen and examined. Chart reviewed and case discussed with RN. The patie nt scheduled for bronchoscopy today due to foreign object seen on CT scan. Medications: List reviewed. Physical Examination: Vital Signs: Temperature 97.4, heart rate 84, blood pressure 132/65, respirations 18, O2 95% on room air. General: Awake, alert, oriented x3. Elderly female, frail, cachectic, BMI 17. CV: S1, S2. Regular rate and rhythm. Peripheral pulses present. Respiratory: Diminished breath sounds. Minimal wheezing. No use of accessory muscles. Gastrointestinal: Abdomen is soft, nontender, nondistended. Positive bowel sounds. Extremities: No clubbing, cyanosis, or edema. Neurologic: Nonfocal. Laboratory Data: Sodium 139, potassium 3.9, chloride 107, CO2 27, BUN 14, creatinine 0.55. Glucose 119, calcium 8.3, AST 39, ALT 52, albumin 3, previously 11.7, H and H 12.2 and 36.6, platelets 161. Blood cultures; no growth to date. Sputum cultures pending. Assessment And Plan: A 78-year-old female with: 1.Acute chronic obstructive pulmonary disease exacerbation. Continue steroids and DuoNeb. Dr. Daria adair on board. 2.Foreign object in the bronchus, appears to be possibly a tooth. The patient denies any loose toot h or aspiration. Going for bronchoscopy today. 3.Pneumonia. Continue antibiotic treatment. Cultures negative to date. 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 5.History of cerebrovascular accident without any residual deficit, stable. 6.Generalized anxiety disorder, stable. We will continue home medications. 7.Essential tremor. 8.Atrial fibrillation, paroxysmal, currently in sinus rhythm. 9.Malnutrition, BMI 17. Dietary referral. 10.Gastrointestinal and deep venous thrombosis prophylaxis addressed. The patient is on Lovenox for deep venous thrombosis prophylaxis. 11.Dyslipidemia. Continue statin. Plan: Follow up with bronchoscopy report if unable to retrieve foreign object. The patient may need to be transferred for higher level of care. SA/MODL Voice ID: [id number] Report ID: [id number]
[2018-09-07] MEDS: ATORVASTATIN 10 MG TAB PO SCH (20:16)
[2018-09-07 21:55] VITALS: BP 150/64; TEMP 97.7
[2018-09-08 06:01] VITALS: O2SAT 99
--- NOTE | 2018-09-10 03:24 | DS ---
Date of Discharge: 09/07/2018 Tie Up Worker: Dr. Bethea with Pulmonology. Procedure: On 09/07/2018, bronchoscopy; normal brigid, normal vocal cords. Left-sided anatomy; norm al right upper lobe, lower lobe foreign body aspiration, friable, suspect aspiration of aluminum. Discharge Diagnoses: 1.Acute chronic obstructive pulmonary disease exacerbation. 2.Foreign object in the right lower bronchus. 3.Pneumonia, right lower lobe. 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 5.History of cerebrovascular accident without residual deficits. 6.Generalized anxiety disorder. 7.Essential tremor. 8.Atrial fibrillation, paroxysmal, currently in sinus rhythm. 9.Malnutrition. 10.Dyslipidemia. Hospital Course: The patient is a 78-year-old female who was admitted to the hospital for shortness of breath. The patient was initially thought to have COPD exacerbation. She was started on nebulize rs and steroids. She was also started on IV fluids. Her cultures were negative. Sputum culture als o remained negative. She was seen by Pulmonology. She was requiring supplemental oxygen, which she does take at home. CT scan was done due to worsening condition and showed foreign object in the righ t lower bronchus, 15-mm structure. Bronchoscopy was attempted by Dr. Bethea, manager electronic, as det chula above. He was unable to retrieve the friable object; and therefore, the patient was transferre d to [facility] in the [facility] for CT Surgery evaluation. For physical examination findings, please see progress note on the day of transfer. Total time spent transferring the patient was 47 minutes. /FLORENCIO Voice ID: [id number] Report ID: [id number]
== END 2018-09-07 20:45 | disposition short-term general hospital (02) | DRG 166 ==
LOC: ER 03:47 → ERHOLD 04:59 → 2ND 08:13
PROVIDERS: ADMIT Hospitalist; ATTEND Family Medicine
PROC: 0BBF8ZX Excision of Right Lower Lung Lobe, Via Natural or Artificial Opening Endoscopic, Diagnostic (ICD-10-PCS; principal; 2018-09-07 12:00)
DX: J44.0 Chronic obstructive pulmonary disease with (acute) lower respiratory infection (principal); J18.9 Pneumonia, unspecified organism; G40.802 Other epilepsy, not intractable, without status epilepticus; T17.800A Unspecified foreign body in other parts of respiratory tract causing asphyxiation, initial encounter; E44.1 Mild protein-calorie malnutrition; Z68.1 Body mass index [BMI] 19.9 or less, adult; J44.1 Chronic obstructive pulmonary disease with (acute) exacerbation; Z86.73 Personal history of transient ischemic attack (TIA), and cerebral infarction without residual deficits; F41.1 Generalized anxiety disorder; R25.1 Tremor, unspecified; I48.0 Paroxysmal atrial fibrillation; Z79.01 Long term (current) use of anticoagulants; E78.5 Hyperlipidemia, unspecified; Z99.81 Dependence on supplemental oxygen; Z88.5 Allergy status to narcotic agent; Z88.8 Allergy status to other drugs, medicaments and biological substances; Z87.891 Personal history of nicotine dependence; I10 Essential (primary) hypertension; I25.10 Atherosclerotic heart disease of native coronary artery without angina pectoris; I27.20 Pulmonary hypertension, unspecified; X58.XXXA Exposure to other specified factors, initial encounter; Y93.89 Activity, other specified; Y92.9 Unspecified place or not applicable
CPT/HCPCS: 36415; 71045; 71046; 71250; 80048; 80053; 80061; 80076; 83735; 83880; 84100; 84484; 85025; 85027; 85610; 87040; 87070; 87205; 88305; 93005; 94760; 96374; 99285; J0456; J0696; J1650; J2001; J2370; J2543; J2704; J2930; J3010; J7030

== ENCOUNTER 2021-01-03 19:43 | Inpatient (IN) | payer OTHER ==
--- OUTSIDE RECORDS SUMMARY | 2021-01-03 19:46 | XMS REPORT | Continuity of Care Document ---
:1940 Author Organization [facility] t Address [address] [place] [address] Care Team Providers Name Role Phone ABY ABERNATHY Attending Clinician Unavailable ABY ABERNATHY Admitting Clinician Unavailable Problems Condition Condition Condition Status Onset Resolution Last Treating Co mments Source Name Details Category Date Date Treatment Clinician Date Pneumonia Pneum[facility] Disease [facility] Bronchial Bronchial Disease Active [facility] - body, body, 00:00: Medical initial initial 00 Center encounter encounter Dyspnea Dyspnea Disease Active [facility] Allergies, Adverse Reactions, Alerts Allergy Allergy Status Severity Reaction(s) Onset Inactive Treating Comm ents Source Name Type Date Date Clinician Codeine Drug Active Moderate [facility] - nce 00:[facility]: Medical 00 Center Predniso Propensi Active Other (See "make my [facility] to Comments) 2-06 blood [facility] - adverse 00:00: vessels Medical reaction 00 rupture" Center s per patient Social History Social Habit Start Date Stop Date Quantity Comments Source Sex Assigned At [facility] Tobacco use and 2018-09-15 2018-09-15 Never used [facility] - exposure 00:00:00 00:00:00 Medical Center Smoking Status Start Date Stop Date Source Never smoker [facility] Ordered Filled Start Stop Current Ordering Indication Dosage Frequency Signature Comments Components Source Medication Medication Date Date Medication? Clinician (SIG) Name Name albuterol Yes 2.5mg Q.5D Take 2.[address] [facility] (PROVENTIL) 2-15 mg by [facility] - 2.5 mg /3 00:27: nebulizati Me dical mL (0.083 24 on 2 (two) Cent er %) times nebulizer daily. solution aspirin 81 2019 Yes 81mg QD Take [address] MG EC 2-15 by mouth [facility] - tablet 00:27: daily. Medical 24 Center atorvastati Yes 10mg QD Take [address] [facility] n (LIPITOR) 2-15 by mouth Luke s - 10 MG 00:27: daily. Medical tablet 24 Center cholecalcif Yes 2000U QD Take 2,[address] [facility] sherry, 2-15 Units by [facility] - vitamin D3, 00:27: mouth Medic al 2,000 unit 24 daily. Jensen Tab escitalopra Yes 20mg QD Take [address] [facility] m oxalate 2-15 by mouth [facility] - (LEXAPRO) 00:27: daily. Medica l 20 MG 24 Center tablet ferrous Yes 325mg Take 325 [facility] sulfate 325 2-15 mg by [facility] - (65 FE) MG 00:27: mouth Medica l tablet 24 daily with Center breakfast. pantoprazol Yes 40mg QD Take [address] [facility] e 2-15 by mouth [facility] - (PROTONIX) 00:27: daily. Medic al 40 MG 24 Center tablet primidone Yes 250mg QD Take [address] [facility] (MYSOLINE) 2-15 mg by [facility] - 250 MG 00:27: mouth Medical tablet 24 nightly. Jensen sertraline Yes 50mg QD Take [address] (ZOLOFT) 50 2-15 by mouth Luke s - MG tablet 00:27: daily. Medica l 24 Center topiramate Yes essential 100mg Q.5D Take [address] [facility] (TOPAMAX) 2-15 tremor mg by [facility] - 100 MG 00:27: mouth 2 Medical tablet 24 (two) Center times daily. clonazePAM Yes .5mg Q.5D Take 0.[address] [facility] [facility] (KLONOPIN) 2-15 mg by [facility] - 0.5 MG 00:27: mouth 2 Medical tablet 24 (two) Center times daily. Missing or Yes 1{dose} QD Inhale [address] [facility] Non-Formula 2-15 Dose by [facility] - ry 00:27: mouth via Medical Medication 24 inhaler Center daily. Procedures This patient has no known procedures. Plan of Care Planned Activity Planned Date Details Comments Source Future Scheduled 2020-04-02 INFLUENZA VACCINE (#1) [facility] Test 00:[facility]:00 [code = INFLUENZA Medical Ce nter VACCINE (#1)] Future Scheduled 2019-08-[address] [facility] - Test 00:00:00 WELLNESS (YEAR 2 or Medical Center FIRST YEAR if no IPPE) [code = MEDICARE ANNUAL WELLNESS (YEAR 2 or FIRST YEAR if no IPPE)] Future Scheduled 2006 PNEUMOCOCCAL 65+ [facility]RS [facility] - Test 00:00:00 (1 of 1 - Medical Center [id number]) [code = PNEUMOCOCCAL 65+ YRS (1 of 1 - [id number] PCV13)] Results Test Description Test Time Test Comments Results Result Comments Source AFB CULTURE + SMEAR 2018-10-26 10:29:00 Test Item Value Reference Range Interpretation Comme nts CULTURE (BEAKER) (test code = 1095) No acid-fast bacilli isolated i n 42 days AFB SMEAR (BEAKER) (test code = 994) No acid fast bacilli seen AFB CULTURE + [id number] 10:29:00 Test Item Value Reference Range Interpretation Comments CULTURE (BEAKER) (test No acid-fast bacilli code = 1095) isolated in 42 days AFB SMEAR (BEAKER) No acid fast bacilli (test code = 994) seen FUNGUS CULTURE + [id number] 18:49:00 Test Item Value Reference Range Interpretation Comments CULTURE (BEAKER) (test No fungus isolated in code = 1095) 28 days FUNGUS SMEAR (BEAKER) No fungi seen (test code = 1406) FUNGUS CULTURE + [id number] 15:39:00 Test Item Value Reference Range Interpretation Comments CULTURE (BEAKER) A <1+ Franci albicans (test code = 1095) FUNGUS SMEAR No fungi seen (BEAKER) (test code = 1406) BASIC METABOLIC [id number] 06:32:00 Test Item Value Reference Range Interpretation Comments SODIUM (BEAKER) 137 meq/L 136-145 (test code = 381) POTASSIUM (BEAKER) 4.4 meq/L 3.5-5.1 (test code = 379) CHLORIDE (BEAKER) 104 meq/L 98-107 (test code = 382) CO2 (BEAKER) (test 26 meq/L 22-29 code = 355) BLOOD UREA NITROGEN 11 mg/dL 7-21 (BEAKER) (test code = 354) CREATININE (BEAKER) 0.70 mg/dL 0.57-1.25 (test code = 358) GLUCOSE RANDOM 94 mg/dL 70-105 (BEAKER) (test code = 652) CALCIUM (BEAKER) 9.0 mg/dL 8.4-10.2 (test code = 697) EGFR (BEAKER) (test 81 mL/min/1.73 ESTIMA LIANA GFR IS code = 1092) sq m NOT ACCURATE CREATININE CLEARANCE IN PREDICTING GLOMERULAR FILTRATION RATE . ESTIMATED GFR I S NOT APPLICABLE FOR DIALYSIS PATIEN TS. CBC (HEMOGRAM ONLY)2018-09-15 05:12:00 Test Item Value Reference Range Interpretation Comments WHITE BLOOD CELL COUNT (BEAKER) 7.4 K/ L 3.5-10.5 (test code = 775) RED BLOOD CELL COUNT (BEAKER) 3.96 M/ L 3.93-5.22 (test code = 761) HEMOGLOBIN (BEAKER) (test code = 11.8 GM/DL 11.2-15.7 410) HEMATOCRIT (BEAKER) (test code = 36.7 % 34.1-44.9 411) MEAN CORPUSCULAR VOLUME (BEAKER) 92.7 fL 79.4-94.8 (test code = 753) MEAN CORPUSCULAR HEMOGLOBIN 29.8 pg 25.6-32.2 (BEAKER) (test code = 751) MEAN CORPUSCULAR HEMOGLOBIN CONC 32.2 GM/DL 32.2-35.5 (BEAKER) (test code = 752) RED CELL DISTRIBUTION WIDTH 13.1 % 11.7-14.4 (BEAKER) (test code = 412) PLATELET COUNT (BEAKER) (test 224 K/CU MM 150-450 code = 756) MEAN PLATELET VOLUME (BEAKER) 10.3 fL 9.4-12.3 (test code = 754) NUCLEATED RED BLOOD CELLS 0 /100 WBC 0-0 (BEAKER) (test code = 413) CT, BRAIN, WITHOUT [id number] 21:21:00FINAL REPORT CT, BRAIN, WITHOUT CONTRAST CLINICAL INDICATION: Ataxia, stroke suspected as etiology COMPARISON: None TECHNIQUE: Noncontrast axial CT imaging of the brain and skull. DOSE REDUCTION: Dose modulation, iterative reconstruction, and/or weight-based adjustment of themA/kV was utilized to reduce the radiation dose to as low as reasonably achievable. FINDINGS:Subcenti meter right para falcine density with adjacent dural thickening (axial image 25) is favored to represent a small meningioma. No intracranial hemorrhage, midline shift or mass effect. Midline structuresare normally developed. Mild chronic microvascular ischemic changes of the periventricular and subcortical white matter are present. Remote lacunar ischemic insult of the right caudate. No hydrocephalus. Orbits are within normal limits. No obstructive paranasal sinus disease. IMPRESSION: No acute intracranial findings. Specifically, no large territorial ischemic insult. Of note, CT is suboptimal forthis evaluation and if there is persistent neurologic deficit and/or clinical concern, recommend furt her evaluation with MRI. Signed: Vikki Fox [facility] Verified Date/Time: 09/14/2018 21:21:43 Reading Location: [address] Neuro Reading Room C METABOLIC [id number] 06:28:00 Test Item Value Reference Range Interpretation Comments SODIUM (BEAKER) 142 meq/L 136-145 (test code = 381) POTASSIUM (BEAKER) 4.1 meq/L 3.5-5.1 (test code = 379) CHLORIDE (BEAKER) 107 meq/L 98-107 (test code = 382) CO2 (BEAKER) (test 28 meq/L 22-29 code = 355) BLOOD UREA NITROGEN 9 mg/dL 7-21 (BEAKER) (test code = 354) CREATININE (BEAKER) 0.67 mg/dL 0.57-1.25 (test code = 358) GLUCOSE RANDOM 97 mg/dL 70-105 (BEAKER) (test code = 652) CALCIUM (BEAKER) 9.0 mg/dL 8.4-10.2 (test code = 697) EGFR (BEAKER) (test 85 mL/min/1.73 ESTIMA LIANA GFR IS code = 1092) sq m NOT ACCURATE CREATININE CLEARANCE IN PREDICTING GLOMERULAR FILTRATION RATE . ESTIMATED GFR I S NOT APPLICABLE FOR DIALYSIS PATIEN TS. VANCOMYCIN LEVEL, [id number] 06:12:00 Test Item Value Reference Range Interpretation Comments VANCOMYCIN TROUGH (BEAKER) (test 7.0 ug/mL 10.0-20.0 L code = 522) Hold vancomycin if trough >20CBC (HEMOGRAM ONLY)2018-09-14 06:01:00 Test Item Value Reference Range Interpretation Comments WHITE BLOOD CELL COUNT (BEAKER) 6.8 K/ L 3.5-10.5 (test code = 775) RED BLOOD CELL COUNT (BEAKER) 4.01 M/ L 3.93-5.22 (test code = 761) HEMOGLOBIN (BEAKER) (test code = 11.8 GM/DL 11.2-15.7 410) HEMATOCRIT (BEAKER) (test code = 37.4 % 34.1-44.9 411) MEAN CORPUSCULAR VOLUME (BEAKER) 93.3 fL 79.4-94.8 (test code = 753) MEAN CORPUSCULAR HEMOGLOBIN 29.4 pg 25.6-32.2 (BEAKER) (test code = 751) MEAN CORPUSCULAR HEMOGLOBIN CONC 31.6 GM/DL 32.2-35.5 L (BEAKER) (test code = 752) RED CELL DISTRIBUTION WIDTH 13.1 % 11.7-14.4 (BEAKER) (test code = 412) PLATELET COUNT (BEAKER) (test 218 K/CU MM 150-450 code = 756) MEAN PLATELET VOLUME (BEAKER) 10.4 fL 9.4-12.3 (test code = 754) NUCLEATED RED BLOOD CELLS 0 /100 WBC 0-0 (BEAKER) (test code = 413) BASIC METABOLIC [id number] 04:59:00 Test Item Value Reference Range Interpretation Comments SODIUM (BEAKER) 139 meq/L 136-145 (test code = 381) POTASSIUM (BEAKER) 3.8 meq/L 3.5-5.1 (test code = 379) CHLORIDE (BEAKER) 106 meq/L 98-107 (test code = 382) CO2 (BEAKER) (test 27 meq/L 22-29 code = 355) BLOOD UREA NITROGEN 8 mg/dL 7-21 (BEAKER) (test code = 354) CREATININE (BEAKER) 0.67 mg/dL 0.57-1.25 (test code = 358) GLUCOSE RANDOM 96 mg/dL 70-105 (BEAKER) (test code = 652) CALCIUM (BEAKER) 8.7 mg/dL 8.4-10.2 (test code = 697) EGFR (BEAKER) (test 85 mL/min/1.73 ESTIMA LIANA GFR IS code = 1092) sq m NOT ACCURATE CREATININE CLEARANCE IN PREDICTING GLOMERULAR FILTRATION RATE . ESTIMATED GFR I S NOT APPLICABLE FOR DIALYSIS PATIEN TS. CBC (HEMOGRAM ONLY)2018-09-13 04:37:00 Test Item Value Reference Range Interpretation Comments WHITE BLOOD CELL COUNT (BEAKER) 6.7 K/ L 3.5-10.5 (test code = 775) RED BLOOD CELL COUNT (BEAKER) 3.87 M/ L 3.93-5.22 L (test code = 761) HEMOGLOBIN (BEAKER) (test code = 11.6 GM/DL 11.2-15.7 410) HEMATOCRIT (BEAKER) (test code = 35.8 % 34.1-44.9 411) MEAN CORPUSCULAR VOLUME (BEAKER) 92.5 fL 79.4-94.8 (test code = 753) MEAN CORPUSCULAR HEMOGLOBIN 30.0 pg 25.6-32.2 (BEAKER) (test code = 751) MEAN CORPUSCULAR HEMOGLOBIN CONC 32.4 GM/DL 32.2-35.5 (BEAKER) (test code = 752) RED CELL DISTRIBUTION WIDTH 13.1 % 11.7-14.4 (BEAKER) (test code = 412) PLATELET COUNT (BEAKER) (test 221 K/CU MM 150-450 code = 756) MEAN PLATELET VOLUME (BEAKER) 10.2 fL 9.4-12.3 (test code = 754) NUCLEATED RED BLOOD CELLS 0 /100 WBC 0-0 (BEAKER) (test code = 413) VANCOMYCIN LEVEL, [id number] 18:15:00 Test Item Value Reference Range Interpretation Comments VANCOMYCIN TROUGH (BEAKER) (test 3.6 ug/mL 10.0-20.0 L code = 522) HOLD vancomycin to draw trough. Do NOT administer vancomycin until level is back. If level is >20, HOLD vancomycin and call pharmacy.TISSUE EXAM 2018-09-12 18:11:00Surgical Pathology Report Case: [id number] Authorizing Provider: Natty Davies MD Collected: 09/09/2018 1314 Ordering Location: [facility] Received: 09/09/2018 1442 SERVICES Pathologist: Sarah Olvera MD Specimen: Lung, Right Lower Lobe, EBBX process in cytology for colloidon bag This report is issued to give results of additional levels and GMS stain:A. LUNG, RIGHT LOWER LOBE, ENDOBRONCHIAL BIOPSY: - NECROTIC DEBRIS WITH SCATTERED POLARIZABLE FOREIGN MATERIAL - NECROTIC BRONCHIAL WALL TISSUE- CONSISTENT WITH SQUAMOUS METAPLASIA OF THE BRONCHIAL WALL - NEGATIVE FOR MALIGNANCY - GMS STAIN FOR FUNGAL ELEMENTS IS NEGATIVE Signing Pathologist Direct Phone Line: [phone] signed by Sarah Olvera MD on 09/12/2018 at 6:11 PMPreliminary result electronically signed by Sarah Olvera MD on 09/10/2018 at 2:29 PMThe case was discussed with Dr. Dumont on 09/10/18 at 2:27 [id number]; [id number] A: The specimen is received in a formalin-filled container and labeled with the patient's information and labeled "Right lower lobe EBBX" and consists of one fragment of white soft tissue measuring 0.8 cm, six fragments of hong off white soft tissue measuring 0.6cm, a brown mass measuring 1.2 x 0.7 cm, a white stringy mass measuring 0.6 x 1.8 cm and countless minute white pieces soft tissue, submitted entirely A1 in a mesh bag. Multiple levels are examinedTheinterpretation of this case included the use of immunohistochemistry or special stains. GMSImmunohistochemistry technical testing was performed at [facility] Pathology Laboratory where it was developed and its performance characteristics were determined. It has not been cleared or approved by the U.S. Food and Drug Administration. The FDA has determined that such clearance or approval is not necessary. The test is used for clinical purposes. It should not be regarded as investigational or for research. This laboratory is certified under the Clinical Laboratory Improvement Amendments of 1988 (CLIA-88) as qualified to perform high complexity clinical laboratory testing.FL, ESOPH, SWALLOW FUNCTION, WITH CINE OR [id number] 10:27:00Reason for exam:->dysphagiaFINAL REPORT Modified barium swallow with speech pathology History: dysphagiaTechnique: Modified barium swallow was performed in conjunction with speech pathology. Examination utilized various textures of barium. Fluoroscopic observation was performed during swallowing. Total fluoroscopy time: 2.6 minutes Total number of films: 1 IMPRESSION: There is no evidence of laryngeal penetration or aspiration. Please refer to the speech pathology report for further details. Signed: Augustine Lr MDReport Verified Date/Time: 09/12/2018 10:27:11 Reading Location: [facility] C013X [facility] Consult Reading Room SURGICALLY OBTAINED CULTURE + GRAM [id number] 17:50:00 Test Item Value Reference Interpretation Comments Range CULTURE (BEAKER) METHICILLIN A 3+ Methicil kimi (test code = 1095) RESISTANT resistant STAPHYLOCOCCUS Staphylococcu s AUREUS aureus Clindamycin (test R code = 10) Erythromycin (test R code = 4) Linezolid (test code S = 40) Nitrofurantoin (test S code = 23) Oxacillin (test code R = 14) Rifampin (test code = S 43) Tetracycline (test S code = 2) Trimethoprim + S Sulfamethoxazole (test code = 47) Vancomycin (test code S = 13) GRAM STAIN RESULT <1+ WBCs (BEAKER) (test code = 1123) GRAM STAIN RESULT No organisms seen (BEAKER) (test code = 976114) BRONCHIAL CULTURE + GRAM [id number] 12:36:00 Test Item Value Reference Interpretation Comments Range CULTURE (BEAKER) METHICILLIN A 4+ Methicil kimi (test code = 1095) RESISTANT resistant STAPHYLOCOCCUS Staphylococcu s AUREUS aureus Clindamycin (test R code = 10) Erythromycin (test R code = 4) Linezolid (test code S = 40) Nitrofurantoin (test S code = 23) Oxacillin (test code R = 14) Rifampin (test code = S 43) Tetracycline (test S code = 2) Trimethoprim + S Sulfamethoxazole (test code = 47) Vancomycin (test code S = 13) GRAM STAIN RESULT 2+ WBCs (BEAKER) (test code = 1123) GRAM STAIN RESULT <1+ gram positive (BEAKER) (test code = cocci in pairs [id number]) SPIN/CONCENTRATION [id number] 17:45:00 Test Item Value Reference Range Interpretation Comments CONCENTRATION CHARGED (BEAKER) (test Done code = 2657) SPIN/CONCENTRATION [id number] 17:45:00 Test Item Value Reference Range Interpretation Comments CONCENTRATION CHARGED (BEAKER) (test Done code = 2657) VANCOMYCIN LEVEL, [id number] 17:29:00 Test Item Value Reference Range Interpretation Comments VANCOMYCIN RANDOM (BEAKER) (test 2.5 ug/mL code = 523) Reference Range: No NormalsBASIC METABOLIC [id number] 05:23:00 Test Item Value Reference Range Interpretation Comments SODIUM (BEAKER) 140 meq/L 136-145 (test code = 381) POTASSIUM (BEAKER) 3.7 meq/L 3.5-5.1 (test code = 379) CHLORIDE (BEAKER) 105 meq/L 98-107 (test code = 382) CO2 (BEAKER) (test 26 meq/L 22-29 code = 355) BLOOD UREA NITROGEN 17 mg/dL 7-21 (BEAKER) (test code = 354) CREATININE (BEAKER) 0.68 mg/dL 0.57-1.25 (test code = 358) GLUCOSE RANDOM 103 mg/dL 70-105 (BEAKER) (test code = 652) CALCIUM (BEAKER) 8.9 mg/dL 8.4-10.2 (test code = 697) EGFR (BEAKER) (test 84 mL/min/1.73 ESTIMA LIANA GFR IS code = 1092) sq m NOT ACCURATE CREATININE CLEARANCE IN PREDICTING GLOMERULAR FILTRATION RATE . ESTIMATED GFR I S NOT APPLICABLE FOR DIALYSIS PATIEN TS. CBC W/PLT COUNT & AUTO [id number] 04:50:00 Test Item Value Reference Range Interpretation Comments WHITE BLOOD CELL COUNT (BEAKER) 10.5 K/ L 3.5-10.5 (test code = 775) RED BLOOD CELL COUNT (BEAKER) 4.11 M/ L 3.93-5.22 (test code = 761) HEMOGLOBIN (BEAKER) (test code = 12.2 GM/DL 11.2-15.7 410) HEMATOCRIT (BEAKER) (test code = 37.9 % 34.1-44.9 411) MEAN CORPUSCULAR VOLUME (BEAKER) 92.2 fL 79.4-94.8 (test code = 753) MEAN CORPUSCULAR HEMOGLOBIN 29.7 pg 25.6-32.2 (BEAKER) (test code = 751) MEAN CORPUSCULAR HEMOGLOBIN CONC 32.2 GM/DL 32.2-35.5 (BEAKER) (test code = 752) RED CELL DISTRIBUTION WIDTH 13.1 % 11.7-14.4 (BEAKER) (test code = 412) PLATELET COUNT (BEAKER) (test 199 K/CU MM 150-450 code = 756) MEAN PLATELET VOLUME (BEAKER) 10.6 fL 9.4-12.3 (test code = 754) NUCLEATED RED BLOOD CELLS 0 /100 WBC 0-0 (BEAKER) (test code = 413) NEUTROPHILS RELATIVE PERCENT 67 % (BEAKER) (test code = 429) LYMPHOCYTES RELATIVE PERCENT 14 % (BEAKER) (test code = 430) MONOCYTES RELATIVE PERCENT 12 % (BEAKER) (test code = 431) EOSINOPHILS RELATIVE PERCENT 6 % (BEAKER) (test code = 432) BASOPHILS RELATIVE PERCENT 1 % (BEAKER) (test code = 437) NEUTROPHILS ABSOLUTE COUNT 7.04 K/ L 1.56-6.13 H (BEAKER) (test code = 670) LYMPHOCYTES ABSOLUTE COUNT 1.45 K/ L 1.18-3.74 (BEAKER) (test code = 414) MONOCYTES ABSOLUTE COUNT (BEAKER) 1.30 K/ L 0.24-0.36 H (test code = 415) EOSINOPHILS ABSOLUTE COUNT 0.59 K/ L 0.04-0.36 H (BEAKER) (test code = 416) BASOPHILS ABSOLUTE COUNT (BEAKER) 0.08 K/ L 0.01-0.08 (test code = 417) IMMATURE GRANULOCYTES-RELATIVE 1 % 0-1 PERCENT (BEAKER) (test code = 2801) BASIC METABOLIC [id number] 05:21:00 Test Item Value Reference Range Interpretation Comments SODIUM (BEAKER) 137 meq/L 136-145 (test code = 381) POTASSIUM (BEAKER) 3.8 meq/L 3.5-5.1 (test code = 379) CHLORIDE (BEAKER) 102 meq/L 98-107 (test code = 382) CO2 (BEAKER) (test 27 meq/L 22-29 code = 355) BLOOD UREA NITROGEN 18 mg/dL 7-21 (BEAKER) (test code = 354) CREATININE (BEAKER) 0.71 mg/dL 0.57-1.25 (test code = 358) GLUCOSE RANDOM 96 mg/dL 70-105 (BEAKER) (test code = 652) CALCIUM (BEAKER) 9.1 mg/dL 8.4-10.2 (test code = 697) EGFR (BEAKER) (test 80 mL/min/1.73 ESTIMA LIANA GFR IS code = 1092) sq m NOT ACCURATE CREATININE CLEARANCE IN PREDICTING GLOMERULAR FILTRATION RATE . ESTIMATED GFR I S NOT APPLICABLE FOR DIALYSIS PATIEN TS. CBC W/PLT COUNT & AUTO [id number] 04:53:00 Test Item Value Reference Range Interpretation Comments WHITE BLOOD CELL COUNT (BEAKER) 10.9 K/ L 3.5-10.5 H (test code = 775) RED BLOOD CELL COUNT (BEAKER) 4.24 M/ L 3.93-5.22 (test code = 761) HEMOGLOBIN (BEAKER) (test code = 12.6 GM/DL 11.2-15.7 410) HEMATOCRIT (BEAKER) (test code = 38.8 % 34.1-44.9 411) MEAN CORPUSCULAR VOLUME (BEAKER) 91.5 fL 79.4-94.8 (test code = 753) MEAN CORPUSCULAR HEMOGLOBIN 29.7 pg 25.6-32.2 (BEAKER) (test code = 751) MEAN CORPUSCULAR HEMOGLOBIN CONC 32.5 GM/DL 32.2-35.5 (BEAKER) (test code = 752) RED CELL DISTRIBUTION WIDTH 13.0 % 11.7-14.4 (BEAKER) (test code = 412) PLATELET COUNT (BEAKER) (test 215 K/CU MM 150-450 code = 756) MEAN PLATELET VOLUME (BEAKER) 10.6 fL 9.4-12.3 (test code = 754) NUCLEATED RED BLOOD CELLS 0 /100 WBC 0-0 (BEAKER) (test code = 413) NEUTROPHILS RELATIVE PERCENT 63 % (BEAKER) (test code = 429) LYMPHOCYTES RELATIVE PERCENT 18 % (BEAKER) (test code = 430) MONOCYTES RELATIVE PERCENT 12 % (BEAKER) (test code = 431) EOSINOPHILS RELATIVE PERCENT 7 % (BEAKER) (test code = 432) BASOPHILS RELATIVE PERCENT 1 % (BEAKER) (test code = 437) NEUTROPHILS ABSOLUTE COUNT 6.89 K/ L 1.56-6.13 H (BEAKER) (test code = 670) LYMPHOCYTES ABSOLUTE COUNT 1.90 K/ L 1.18-3.74 (BEAKER) (test code = 414) MONOCYTES ABSOLUTE COUNT (BEAKER) 1.26 K/ L 0.24-0.36 H (test code = 415) EOSINOPHILS ABSOLUTE COUNT 0.71 K/ L 0.04-0.36 H (BEAKER) (test code = 416) BASOPHILS ABSOLUTE COUNT (BEAKER) 0.09 K/ L 0.01-0.08 H (test code = 417) IMMATURE GRANULOCYTES-RELATIVE 0 % 0-1 PERCENT (BEAKER) (test code = 2801) CT, CHEST, WITH [id number] 05:09:00FINAL REPORT EXAM: CT of the chest, with contrast. CLINICAL HISTORY: eval anatomy, right lower lobe foreign body TECHNIQUE: Chest CT was performed with intravenous contrast. This exam was performed according to our departmental dose optimization program which includes automated exposure control, adjustment of the mA and/or kV according to patient's size and/or use of iterative reconstructive technique. COMPARISON: None FINDINGS: LOWER NECK: Within normal limits.AIRWAYS AND LUNGS: Secretions in the right mainstem and right lower lobe bronchi. Moderate to severe upper lobepredominant centrilobular emphysema. Small patchy airspace opacities and tree-in-bud nodular in the right lower lobe which may represent pneumonia. Mild right lower lobe linear atelectasis/scarring.PLEURA: No pleural effusion or pneumothorax.VESSELS: Calcific atherosclerosis.HEART: Mild cardiomegaly. Small pericardial fluid.MANUEL AND MEDIASTINUM: Within normal limits.VISUALIZED UPPER ABDOMEN: Mild pneu mobilia. 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 IMPRESSION:Moderate to severe emphysema.Small patchy airspace opacities and tree-in-bud nodular in the right lower lobe which may represent pneumonia; consider aspiration given right-sided bronchial secretions. A follow-up chest CT in 3 months is recommended to assess for resolution of right lower lobe pneumonia and to exclude underlying malignancy.Mild cardiomegaly.No radiopaque foreign body. Signed: Lorraine Wolfeeport Verified Date/Time: 09/08/2018 05:09:44 Reading Location: [facility] B1 C013Y CT Body Reading Room [id number] 01:26:00 Test Item Value Reference Range Interpretation Comments PHOSPHORUS (BEAKER) (test code = 3.2 mg/dL 2.3-4.7 604) [id number] 01:26:00 Test Item Value Reference Range Interpretation Comments MAGNESIUM (BEAKER) (test code = 1.8 mg/dL 1.6-2.6 627) BASIC METABOLIC [id number] 01:26:00 Test Item Value Reference Range Interpretation Comments SODIUM (BEAKER) 134 meq/L 136-145 L (test code = 381) POTASSIUM (BEAKER) 4.0 meq/L 3.5-5.1 (test code = 379) CHLORIDE (BEAKER) 102 meq/L 98-107 (test code = 382) CO2 (BEAKER) (test 24 meq/L 22-29 code = 355) BLOOD UREA NITROGEN 11 mg/dL 7-21 (BEAKER) (test code = 354) CREATININE (BEAKER) 0.66 mg/dL 0.57-1.25 (test code = 358) GLUCOSE RANDOM 122 mg/dL 70-105 H (BEAKER) (test code = 652) CALCIUM (BEAKER) 9.0 mg/dL 8.4-10.2 (test code = 697) EGFR (BEAKER) (test 87 mL/min/1.73 ESTIMA LIANA GFR IS code = 1092) sq m NOT ACCURATE CREATININE CLEARANCE IN PREDICTING GLOMERULAR FILTRATION RATE . ESTIMATED GFR I S NOT APPLICABLE FOR DIALYSIS PATIEN TS. [id number] 01:23:00 Test Item Value Reference Range Interpretation Comments PROTIME (BEAKER) (test code = 12.4 seconds 11.7-14.7 759) INR (BEAKER) (test code = 370) 0.9 <=5.9 PARTIAL THROMBOPLASTIN TIME 27.7 seconds 22.5-36.0 (BEAKER) (test code = 760) RECOMMENDED COUMADIN/WARFARIN INR THERAPY RANGESSTANDARD DOSE: 2.0 - 3.0 Includes: PROPHYLAXIS forvenous thrombosis, systemic embolization; TREATMENT for venous thrombosis and/or pulmonary embolus.HIGH RISK: Target INR is 2.5-3.5 for patients with mechanical heart valves.[id number] 01:23:00 Test Item Value Reference Range Interpretation Comments PARTIAL THROMBOPLASTIN TIME 27.7 seconds 22.5-36.0 (BEAKER) (test code = 760) PROTHROMBIN TIME/[id number] 01:22:00 Test Item Value Reference Range Interpretation Comments PROTIME (BEAKER) (test code = 12.4 seconds 11.7-14.7 759) INR (BEAKER) (test code = 370) 0.9 <=5.9 RECOMMENDED COUMADIN/WARFARIN INR THERAPY RANGESSTANDARD DOSE: 2.0 - 3.0 Includes: PROPHYLAXIS forvenous thrombosis, systemic embolization; TREATMENT for venous thrombosis and/or pulmonary embolus.HIGH RISK: Target INR is 2.5-3.5 for patients with mechanical heart valves.CBC W/PLT COUNT & AUTO DIFFERENTIAL 2018-09-08 01:13:00 Test Item Value Reference Range Interpretation Comments WHITE BLOOD CELL COUNT (BEAKER) 12.0 K/ L 3.5-10.5 H (test code = 775) RED BLOOD CELL COUNT (BEAKER) 3.92 M/ L 3.93-5.22 L (test code = 761) HEMOGLOBIN (BEAKER) (test code = 11.8 GM/DL 11.2-15.7 410) HEMATOCRIT (BEAKER) (test code = 35.8 % 34.1-44.9 411) MEAN CORPUSCULAR VOLUME (BEAKER) 91.3 fL 79.4-94.8 (test code = 753) MEAN CORPUSCULAR HEMOGLOBIN 30.1 pg 25.6-32.2 (BEAKER) (test code = 751) MEAN CORPUSCULAR HEMOGLOBIN CONC 33.0 GM/DL 32.2-35.5 (BEAKER) (test code = 752) RED CELL DISTRIBUTION WIDTH 13.2 % 11.7-14.4 (BEAKER) (test code = 412) PLATELET COUNT (BEAKER) (test 171 K/CU MM 150-450 code = 756) MEAN PLATELET VOLUME (BEAKER) 11.1 fL 9.4-12.3 (test code = 754) NUCLEATED RED BLOOD CELLS 0 /100 WBC 0-0 (BEAKER) (test code = 413) NEUTROPHILS RELATIVE PERCENT 82 % (BEAKER) (test code = 429) LYMPHOCYTES RELATIVE PERCENT 8 % (BEAKER) (test code = 430) MONOCYTES RELATIVE PERCENT 6 % (BEAKER) (test code = 431) EOSINOPHILS RELATIVE PERCENT 3 % (BEAKER) (test code = 432) BASOPHILS RELATIVE PERCENT 1 % (BEAKER) (test code = 437) NEUTROPHILS ABSOLUTE COUNT 9.85 K/ L 1.56-6.13 H (BEAKER) (test code = 670) LYMPHOCYTES ABSOLUTE COUNT 0.99 K/ L 1.18-3.74 L (BEAKER) (test code = 414) MONOCYTES ABSOLUTE COUNT (BEAKER) 0.71 K/ L 0.24-0.36 H (test code = 415) EOSINOPHILS ABSOLUTE COUNT 0.31 K/ L 0.04-0.36 (BEAKER) (test code = 416) BASOPHILS ABSOLUTE COUNT (BEAKER) 0.10 K/ L 0.01-0.08 H (test code = 417) IMMATURE GRANULOCYTES-RELATIVE 0 % 0-1 PERCENT (BEAKER) (test code = 2801) RAD, CHEST, 1 VIEW, NON [id number] 23:28:00Reason for exam:->foreign body, airwayShould this be performed at the bedside?->YesFINAL REPORT INDICATION: foreign body, airway COMPARISON:None. TECHNIQUE: Ches t radiograph, single view, portable technique. FINDINGS / IMPRESSION: No radiopaque foreign body is identified. No lung collapse is demonstrated. Prominent heart shadow which may be related to portabletechnique. No focal lung abnormality demonstrated. No pneumothorax or pleural effusion. Osseous struc tures unremarkable. Signed: Oswald Alvarado MDReport Verified Date/Time: 09/07/2018 23:28:48 Reading Location: [address] Consult Reading Room
[2021-01-03 20:31] LABS: Absolute Lymphocytes (CBC) 4.3 K/uL (0.7-4.9); Basophils % 0.6 % (0-1.3); Hematocrit 45.2 % (36.0-45.0); Lymphocytes % 24.9 % (15.3-44.8); MPV 10.5 fL (7.6-11.3); RBC Red Blood Cell Count 4.98 M/uL (3.86-4.86)
[2021-01-03 20:39] LABS: Protime INR 0.96
[2021-01-03 20:47] LABS: ALT/SGPT 95 U/L (12-78); AST/SGOT 68 U/L (15-37); Albumin 3.9 g/dL (3.4-5.0); Alkaline Phosphatase 114 U/L (45-117); BUN Blood Urea Nitrogen 14 mg/dL (7-18); Bicarbonate 25 mmol/L (21-32); Bilirubin Direct 0.1 mg/dL (0-0.2); Bilirubin Total 0.3 mg/dL (0.2-1.0); Glucose Level 142 mg/dL (74-106); Lipase 143 U/L (73-393); Magnesium 2.2 mg/dL (1.8-2.4); NT PRO-BNP 689 pg/mL (<450); Potassium 4.1 mmol/L (3.5-5.1); Protein, Total 8.2 g/dL (6.4-8.2); Sodium Level 137 mmol/L (136-145); Troponin (Emerg Dept Use Only) 0.27 ng/mL (0.0-0.045)
[2021-01-03 20:51] LABS: Arterial Blood Carboxyhemoglob 0.8 % (0-1.5); Blood Gas Oxyhemoglobin 98.1 % (94-97); Blood O2 Saturation 99.7 % (92-98.5)
--- NOTE | 2021-01-03 21:10 | RAD REPORT ---
EXAM DESCRIPTION: Steve Single View01/03/2021 9:04 pm CLINICAL HISTORY: Shortness of breath COMPARISON: 2019 FINDINGS: Lungs are markedly hyperaerated. The lungs appear clear of acute infiltrate. The heart is normal size IMPRESSION: COPD without visualization of an acute abnormality
--- NOTE | 2021-01-03 21:18 | EDPHYS ---
Physician Documentation [facility] Name: Sirena Nolan Age: 80 yrs Sex: Female : 1940 Arrival Date: 01/03/2021 Time: 19:46 Bed 2 Private MD: ED Physician Tin Watkins HPI: 01/04 06:28 This 80 yrs old Female presents to ER via Wheelchair with complaints of tw4 Breathing Difficulty. 06:28 The patient has shortness of breath at rest. Onset: The symptoms/episode began/occurred tw4 just prior to arrival, today. Duration: The symptoms are continuous, and are steadily getting worse. The patient's shortness of breath has no apparent modifying factors. Associated signs and symptoms: The patient has no apparent associated signs or symptoms. Severity of symptoms: At their worst the symptoms were moderate in the emergency department the symptoms are unchanged. The patient has not experienced similar symptoms in the past. Historical: - Allergies: 01/03 19:53 Codeine; iw 19:53 Prednisone; iw - PMHx: 19:53 Anxiety; COPD; essential body tremors; Hypertension; Myocardial infarction; Pneumonia; iw - PSHx: 19:53 Hysterectomy; Tonsillectomy; adenoid surgery; Appendectomy; iw - Immunization history:: Adult Immunizations up to date. - Social history:: Smoking status: unknown. ROS: 01/04 06:28 Constitutional: Negative for fever, chills, and weight loss, Eyes: Negative for injury, tw4 pain, redness, and discharge, Cardiovascular: Negative for chest pain, palpitations, and edema, Respiratory: Negative for shortness of breath, cough, wheezing, and pleuritic chest pain, Abdomen/GI: Negative for abdominal pain, nausea, vomiting, diarrhea, and constipation, Back: Negative for injury and pain, MS/Extremity: Negative for injury and deformity, Skin: Negative for injury, rash, and discoloration. Exam: 06:28 Eyes: Pupils equal round and reactive to light, extra-ocular motions intact. Lids and tw4 lashes normal. Conjunctiva and sclera are non-icteric and not injected. Cornea within normal limits. Periorbital areas with no swelling, redness, or edema. Neck: Trachea midline, no thyromegaly or masses palpated, and no cervical lymphadenopathy. Supple, full range of motion without nuchal rigidity, or vertebral point tenderness. No Meningismus. Chest/axilla: Normal chest wall appearance and motion. Nontender with no deformity. No lesions are appreciated. Cardiovascular: Regular rate and rhythm with a normal S1 and S2. No gallops, murmurs, or rubs. Normal PMI, no JVD. No pulse deficits. 06:28 Back: No spinal tenderness. No costovertebral tenderness. Full range of motion. Skin: Warm, dry with normal turgor. Normal color with no rashes, no lesions, and no evidence of cellulitis. MS/ Extremity: Pulses equal, no cyanosis. Neurovascular intact. Full, normal range of motion. Neuro: Awake and alert, GCS 15, oriented to person, place, time, and situation. Cranial nerves II-XII grossly intact. Motor strength 5/5 in all extremities. Sensory grossly intact. Cerebellar exam normal. Normal gait. 06:28 Constitutional: The patient appears emaciated, in obvious distress, uncomfortable. 06:28 Respiratory: moderate respiratory distress is noted, Respirations: labored breathing, Breath sounds: decreased breath sounds, that are moderate. Vital Signs: 01/03 19:53 BP 149 / 100; Pulse 115; Resp 30 S; Pulse Ox 83% on 2 lpm NC; iw 20:14 BP 147 / 84; Pulse 104; Resp 26; Temp 99.5; Pulse Ox 100% on BiPAP; ak2 20:24 BP 136 / 77; Pulse 84; Resp 22; Pulse Ox 100% on BiPAP; ak2 21:04 BP 109 / 73; Pulse 92; Resp 20; Pulse Ox 99% on BiPAP; ak2 21:56 BP 102 / 83; Pulse 88; Resp 20; Temp 99.4; Pulse Ox 97% on BiPAP; ak2 23:19 BP 130 / 58; Pulse 92; Resp 18; Pulse Ox 100% on BiPAP; ak2 MDM: 19:55 Patient medically screened. tw4 01/04 06:28 Differential diagnosis: Anemia reactive airway disease, Unstable Angina. Antibiotic tw4 administration: Not indicated. Data reviewed: vital signs, nurses notes. Data interpreted: Pulse oximetry: Interpretation: normal. Counseling: I had a detailed discussion with the patient and/or guardian regarding: the historical points, exam findings, and any diagnostic results supporting the discharge/admit diagnosis. Physician consultation: Juan Vargas regarding admission, patient's condition, and will see patient in inpatient room. Special discussion:. 01/03 19:59 Order name: ABG [facility] 01/03 19:59 Order name: Blood Culture Adult (2) [facility] 01/03 19:59 Order name: BMP [facility] 01/03 19:59 Order name: CBC with Diff [facility] 01/03 19:59 Order name: Hepatic Function [facility] 01/03 19:59 Order name: Lipase [facility] 01/03 19:59 Order name: Magnesium [facility] 01/03 19:59 Order name: NT PRO-BNP [facility] 01/03 19:59 Order name: PT-INR [facility] 01/03 19:59 Order name: Ptt, Activated [facility] 01/03 19:59 Order name: Troponin (emerg Dept Use Only) [facility] 01/03 21:22 Order name: SARS-COV-2 RT PCR [facility] 01/03 19:59 Order name: XRAY CXR (1 view) [facility] 01/03 19:59 Order name: BIPAP [facility] 01/03 19:59 Order name: Call RT; Complete Time: 20:44 [facility] 01/03 19:59 Order name: EKG; Complete Time: 20:00 [facility] 01/03 19:59 Order name: Cardiac monitoring [facility] 01/03 19:59 Order name: EKG - Nurse/Tech [facility] 01/03 19:59 Order name: IV Saline Lock [facility] 01/03 19:59 Order name: Labs collected and sent [facility] 01/03 19:59 Order name: O2 Per Protocol [facility] 01/03 19:59 Order name: O2 Sat Monitoring [facility] 01/03 22:32 Order name: CT Chest For PE Angio [facility] 01/03 23:00 Order name: CONS Physician Consult [facility]AL Administered Medications: 01/03 23:18 Drug: Cleocin (clindamycin) 600 mg Route: IVPB; Infused Over: 30 mins; Site: left ak2 antecubital; 23:18 Drug: SOLU-Medrol (methylPrednisoLONE) 125 mg Route: IVP; Site: left antecubital; ak2 23:23 Drug: Lovenox (enoxaparin) 60 mg Route: Sub-Q; Site: abdomen; ak2 Disposition: 01/03/21 21:17 Hospitalization ordered by Juan Vargas for Inpatient Admission. Preliminary diagnosis are Chronic obstructive pulmonary disease with (acute) exacerbation, Hypoxemia, Respiratory failure, unspecified with hypoxia, Acidosis. - Bed requested for Telemetry/MedSurg (Inpatient). - Status is Inpatient Admission. ak2 - Condition is Stable. - Problem is new. - Symptoms have improved. Signatures: Dispatcher [employer] EDAL Yashira Reardon RN RN mw Williams, Irene, RN RN Tin Watkins MD MD tw4 Malik Joe ak2 Corrections: (The following items were deleted from the chart) 20:29 20:27 CORONAVIRUS ordered. EDAL EDAL 23:06 21:17 Hospitalization Ordered by Juan Vargas for Inpatient Admission. Preliminary diagnosis is Chronic obstructive pulmonary disease with (acute) exacerbation; Hypoxemia; Respiratory failure, unspecified with hypoxia; Acidosis. Bed requested for Telemetry/MedSurg (Inpatient). Status is Inpatient Admission. Condition is Stable. Problem is new. Symptoms have improved. tw4 01/04 00:33 01/03 23:06 01/03/2021 21:17 Hospitalization Ordered by Juan Vargas for Inpatient ak2 Admission. Preliminary diagnosis is Chronic obstructive pulmonary disease with (acute) exacerbation; Hypoxemia; Respiratory failure, unspecified with hypoxia; Acidosis. Bed requested for Telemetry/MedSurg (Inpatient). Status is Inpatient Admission. Condition is Stable. Problem is new. Symptoms have improved. mw
--- NOTE | 2021-01-03 21:18 | ER ---
Nurse's Notes [facility] Name: Sirena Nolan Age: 80 yrs Sex: Female : 1940 Arrival Date: 01/03/2021 Time: 19:46 Bed 2 Private MD: Diagnosis: Chronic obstructive pulmonary disease with (acute) exacerbation;Hypoxemia;Respiratory failure, unspecified with hypoxia;Acidosis Presentation: 01/03 19:51 Chief complaint: Patient states: difficulty breathing today, hx of COPD, daughter iw reports O2 level was in 70's at home, uses home O2 at 2 L NC. Coronavirus screen: difficulty breathing. Ebola Screen: Patient negative for fever greater than or equal to 101.5 degrees Fahrenheit, and additional compatible Ebola Virus Disease symptoms Patient denies exposure to infectious person. Patient denies travel to an Ebola-affected area in the 21 days before illness onset. No symptoms or risks identified at this time. Initial Sepsis Screen: Does the patient meet any 2 criteria? No. Patient's initial sepsis screen is negative. Does the patient have a suspected source of infection? No. Patient's initial sepsis screen is negative. Risk Assessment: Do you want to hurt yourself or someone else? Patient reports no desire to harm self or others. Onset of symptoms was January 03, 2021. 19:51 Method Of Arrival: Wheelchair iw 19:51 Acuity: AISHA 2 iw 19:54 Note Rt called to bedside, placed on BiPAP, up to 100%, Dr. Watkins at bedside. iw Triage Assessment: 20:17 General: Appears in no apparent distress. Behavior is calm, cooperative. Pain: Denies ak2 pain. Respiratory: Reports shortness of breath at rest Onset: The symptoms/episode began/occurred today, the patient has moderate shortness of breath. Historical: - Allergies: 19:53 Codeine; iw 19:53 Prednisone; iw - PMHx: 19:53 Anxiety; COPD; essential body tremors; Hypertension; Myocardial infarction; Pneumonia; iw - PSHx: 19:53 Hysterectomy; Tonsillectomy; adenoid surgery; Appendectomy; iw - Immunization history:: Adult Immunizations up to date. - Social history:: Smoking status: unknown. Screenin:16 Abuse screen: Denies threats or abuse. Denies injuries from another. Nutritional ak2 screening: No deficits noted. Tuberculosis screening: No symptoms or risk factors identified. Fall Risk None identified. Assessment: 20:21 Cardiovascular: Rhythm is sinus tachycardia. Respiratory: Airway is patent Respiratory ak2 effort is even, labored. 20:23 Respiratory: ak2 23:04 Reassessment: pt transported to Ct, placed on venti mask at 15 L/min. iw 23:57 General: report called to rn. ak2 Vital Signs: 19:53 BP 149 / 100; Pulse 115; Resp 30 S; Pulse Ox 83% on 2 lpm NC; iw 20:14 BP 147 / 84; Pulse 104; Resp 26; Temp 99.5; Pulse Ox 100% on BiPAP; ak2 20:24 BP 136 / 77; Pulse 84; Resp 22; Pulse Ox 100% on BiPAP; ak2 21:04 BP 109 / 73; Pulse 92; Resp 20; Pulse Ox 99% on BiPAP; ak2 21:56 BP 102 / 83; Pulse 88; Resp 20; Temp 99.4; Pulse Ox 97% on BiPAP; ak2 23:19 BP 130 / 58; Pulse 92; Resp 18; Pulse Ox 100% on BiPAP; ak2 ED Course: 19:46 Patient arrived in ED. mw2 19:52 Triage completed. iw 19:53 Arm band placed on. iw 19:55 Tin Watkins MD is Attending Physician. tw4 20:16 Patient has correct armband on for positive identification. ak2 20:16 No provider procedures requiring assistance completed. Inserted saline lock: 20 gauge ak2 in left antecubital area, using aseptic technique. 20:24 Malik Joe is Primary Nurse. ak2 21:04 XRAY CXR (1 view) In Process Unspecified. EDMS 21:15 Juan Vargas is Hospitalizing Provider. tw4 Administered Medications: 23:18 Drug: Cleocin (clindamycin) 600 mg Route: IVPB; Infused Over: 30 mins; Site: left ak2 antecubital; 23:18 Drug: SOLU-Medrol (methylPrednisoLONE) 125 mg Route: IVP; Site: left antecubital; ak2 23:23 Drug: Lovenox (enoxaparin) 60 mg Route: Sub-Q; Site: abdomen; ak2 Outcome: 21:17 Decision to Hospitalize by Provider. tw4 01/04 00:33 Admitted to Tele with oxygen. ak2 00:33 Patient left the ED. ak2 Signatures: Dispatcher [employer] Diya Anthony RN RN iw Wadley, Terrence, MD MD tw4 Tan Roman mw2 Malik Joe ak2
[2021-01-03] MEDS ORDERED: IPRATROPIUM BROM 0.5MG/2.5ML ONE (21:54)
[2021-01-03] MEDS ORDERED: ALBUTEROL 2.5 MG/3 ML NEB SOL ONE (21:54)
[2021-01-03] MEDS ORDERED: ENOXAPARIN 60 MG/0.6 ML SQ ONE (23:28)
[2021-01-03] MEDS ORDERED: CLINDAMYCIN 600MG/D5W 600 MG/50 ML BAG IV ONE (23:28)
[2021-01-03] MEDS ORDERED: METHYLPREDNISOLONE 125 MG INJ ONE (23:28)
--- NOTE | 2021-01-03 23:30 | P.HP ---
Certification for Inpatient Patient admitted to: Inpatient With expected LOS: >2 Midnights Patient will require the following post-hospital care: None Practitioner: I am a practitioner with admitting privileges, knowledge of patient current condition, hospital course, and medical plan of care. Services: Services provided to patient in accordance with Admission requirements found in Title 42 Section 412.3 of the Code of Federal Regulations Patient History Date of Service: 01/03/21 Primary Care Provider: Luis Reason for admission: copd exacerbation History of Present Illness: Ms. 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 She says this morning she aspirated coffee and her sats dropped down to the 70s. She denies cough, chest pain, wheezing, night sweats, chills. In the ED, she presented with sats in the 80s. She follows with Dr. Bethea. She has had aspiration pneumonia before. Patient says she has chronic Hepatitis C and takes medications for her liver but it is not on her home medication list. She stopped smoking a few years ago. WBC 17.4 Glu 142 AST 68 ALT 95 Trop 0.27 BNP 689. Allergies codeine Allergy (Verified 01/23/16 13:58) Itching prednisone Allergy (Verified 01/23/16 13:58) elevated heart rate Home Medications: Topiramate [Topamax*] 100 mg PO BID 10/17/15 Pantoprazole [Protonix Tab*] 40 mg PO DAILYAC #30 tab 11/05/15 clonazePAM [Klonopin*] 0.5 mg PO BID #60 tab 11/05/15 Escitalopram [Lexapro*] 20 mg PO DAILY 01/17/16 Primidone [Mysoline *] 250 mg PO BID 01/17/16 Albuterol Sulfate [Ventolin Hfa] 1 in IN BID PRN 09/05/18 Aspirin 81 mg PO DAILY 09/05/18 Atorvastatin Calcium [Lipitor] 10 mg PO DAILY 09/05/18 Cholecalciferol (Vitamin D3) [Vitamin D 1000 Iu Tab] 2,000 unit PO DAILY 09/05/18 Ferrous Sulfate [Iron] 325 mg PO DAILY 09/05/18 Sertraline [Zoloft] 50 mg PO DAILY 09/05/18 Umeclidinium Brm/Vilanterol Tr [Anoro Ellipta 62.5-25 Mcg INH] 1 each IH DAILY 09/05/18 - Past Medical/Surgical History Diabetic: No -: Severe COPD -: Essential tremors, Neurology-Dr. 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 - Family History Mother -: Heart disease, Stroke, Other (see notes) Father -: Cancer Brother -: Other (see notes) Notes: Parkinson's - Social History Smoking Status: Former smoker Alcohol use: Yes CD- Drugs: No Caffeine use: Yes Place of Residence: Home Review of Systems 10-point ROS is otherwise unremarkable Respiratory: Shortness of Breath Physical Examination - Physical Exam General: Alert, In no apparent distress, Oriented x3, Cooperative, Cachectic HEENT: Atraumatic, Normocephalic, PERRLA, Mucous membr. moist/pink, EOMI, Sclerae nonicteric Neck: Supple, 2+ carotid pulse no bruit, JVD not distended, No Thyromegaly, No LAD Respiratory: Diminished Cardiovascular: No edema, Normal pulses, Regular rate/rhythm, No gallops, No rubs, No murmurs Capillary refill: <2 Seconds Gastrointestinal: Normal bowel sounds, Soft and benign, Non-distended, No ascites, No tenderness, No masses, No rebound, No guarding Musculoskeletal: No clubbing, No swelling, No contractures, No erythema, No tenderness, No warmth Integumentary: No rashes, No breakdown, No significant lesion, No tenderness/swelling, No erythema, No warmth, No cyanosis Neurological: Normal speech, Normal strength at 5/5 x4 extr, Normal tone, Sensation intact, Cranial nerves 3-12 intact, Normal affect Lymphatics: No axilla or inguinal lymphadenopathy - Studies Laboratory Data (last 24 hrs) 01/03/21 20:15: PT 11.0, INR 0.96, APTT 26.7 01/03/21 20:15: WBC 17.40 H, Hgb 15.0, Hct 45.2 H, Plt Count 204 01/03/21 20:15: Sodium 137, Potassium 4.1, BUN 14, Creatinine 0.62, Glucose 142 H, Magnesium 2.2, Total Bilirubin 0.3, AST 68 H, ALT 95 H, Alkaline Phosphatase 114, Lipase 143 Assessment and Plan - Problems (Diagnosis) (1) COPD (chronic obstructive pulmonary disease) Current Visit: No Status: Acute Qualifiers: COPD type: COPD with acute exacerbation Qualified Code(s): J44.1 - Chronic obstructive pulmonary disease with (acute) exacerbation (2) Cardiac enzymes elevated Onset Date: 10/17/15 Current Visit: No Status: Acute (3) Essential tremor Onset Date: 02/20/16 Current Visit: No Status: Chronic - Plan pulm consulted, CTPE pending continue IV steroids, IV vanc and zosyn, IVF blood cultures and sputum cultures pending procal and lactic acid pending continue BIPAP, RT consulted, breathing treatments PRN trend troponins, consult cardiology, given full dose lovenox in ED, on telemetry NPO until speech evaluation, dietitian consult social work consulted, will consider PT OT once more stable hepatitis panel pending will reconcile and continue home medications Discharge Plan: Home Plan to discharge in: 72 Hours - Advance Directives Does patient have a Living Will: No Does patient have a Durable POA for Healthcare: No - Code Status/Comfort Care Code Status Assessed: Yes (full code) Critical Care: No Time Spent Managing Pts Care (In Minutes): 70
[2021-01-04] MEDS ORDERED: ONDANSETRON 4 MG/2 ML VIAL IV PRN (01:21)
[2021-01-04] MEDS: PIPER/TAZO/NS 3.375gm 3.375 GM/100 ML BAG IVPB SCH ×3 (01:21→17:33)
[2021-01-04] MEDS ORDERED: NA CHLORIDE 0.9% 1,000 ML IV SCH (01:21)
[2021-01-04] MEDS ORDERED: VANCOMYCIN/NS 1 gm 1 GM/250 ML BAG IVPB SCH (01:21)
[2021-01-04] MEDS: IPRATROPIUM BROM 0.5MG/2.5ML NEB SCH ×4 (01:55→19:35)
[2021-01-04] MEDS: ALBUTEROL 2.5 MG/3 ML NEB SOL NEB SCH ×4 (01:55→19:35)
[2021-01-04] MEDS ORDERED: VANCOMYCIN 750 MG in NA CHLORIDE 0.9% 150 ML IVPB SCH (02:00)
[2021-01-04 02:13] LABS: Thyroid Stimulating Hormone 0.694 uIU/mL (0.360-3.740)
[2021-01-04 02:15] LABS: Troponin I 2.84 ng/mL (0.0-0.045)
[2021-01-04] MEDS ORDERED: VANCOMYCIN 500 MG/VIAL ONE (02:23)
[2021-01-04] MEDS ORDERED: NA CHLORIDE 0.9% 250 ML ONE (02:25)
[2021-01-04] MEDS ORDERED: NA CHLORIDE 0.9% 100 ML ONE (02:25)
[2021-01-04] MEDS ORDERED: PIPERACIL/TAZO 3.375 GM VIAL IV ONE (02:40)
[2021-01-04] MEDS: NA CHLORIDE 0.9% 1,000 ML IV SCH ×4 (03:39→23:39)
[2021-01-04 03:45] LABS: Urine Appearance CLEAR (Clear); Urine Bilirubin NEGATIVE (Negative); Urine Blood NEGATIVE (Negative); Urine Color YELLOW (Yellow); Urine Glucose NEGATIVE (Negative); Urine Protein TRACE (Negative); Urine Specific Gravity >=1.030 (1.005-1.030); Urine Urobilinogen 0.2 mg/dL (0.2-1.0)
[2021-01-04 03:48] LABS: Urine Microscopic Reflex NO UMIC
[2021-01-04 05:42] LABS: Basophils % 0.2 % (0-1.3); Hematocrit 37.9 % (36.0-45.0); Lymphocytes % 5.2 % (15.3-44.8); MPV 10.2 fL (7.6-11.3); RBC Red Blood Cell Count 4.21 M/uL (3.86-4.86)
[2021-01-04] MEDS ORDERED: METHYLPREDNISOLONE 125 MG INJ IV SCH (06:00)
[2021-01-04 06:10] LABS: Albumin 3.3 g/dL (3.4-5.0); Bilirubin Total 0.5 mg/dL (0.2-1.0); Magnesium 2.1 mg/dL (1.8-2.4); Phosphorus 3.2 mg/dL (2.5-4.9); Potassium 3.7 mmol/L (3.5-5.1); Protein, Total 6.4 g/dL (6.4-8.2)
[2021-01-04 06:11] LABS: Troponin I 2.47 ng/mL (0.0-0.045)
[2021-01-04 07:41] LABS: Blood Morphology Comment NOT SEEN (NOT SEEN); Platelet Estimate ADEQ
[2021-01-04] MEDS: ENOXAPARIN 30 MG/0.3 ML SQ SCH (08:06)
[2021-01-04] MEDS ORDERED: KCL 20 MEQ/100 mL IVPB 20 MEQ/100 ML BAG IV SCH (09:00)
[2021-01-04] MEDS: ASPIRIN 81 MG CHEWABLE TABLET PO SCH (10:40)
[2021-01-04] MEDS: SERTRALINE HCL 50 MG TAB PO SCH (10:40)
[2021-01-04] MEDS: clonazePAM 0.5 MG TAB PO SCH ×2 (10:41→21:22)
[2021-01-04] MEDS: FERROUS SULFATE 325 MG TAB PO SCH (10:41)
[2021-01-04] MEDS: VITAMIN D 1000 UNIT TAB PO SCH (10:41)
[2021-01-04] MEDS: PRIMIDONE 250 MG TAB PO SCH ×2 (10:41→21:22)
[2021-01-04] MEDS: ATORVASTATIN 10 MG TAB PO SCH (10:41)
[2021-01-04] MEDS: TOPIRAMATE 100 MG TAB PO SCH ×2 (10:50→21:22)
--- NOTE | 2021-01-04 11:02 | P.CNS ---
Date of Consult: 01/04/21 Reason for Consult: possible sepsis Primary Care Provider: Luis Chief Complaint: copd exacerbation History of Present Illness: patient is 80 years of age with a history of severe COPD home O2 essential tremors came in today extreme shortness of breath apparently she aspirated some coffee saturations dropped down to 70% patient required BiPAP she is now back to her baseline over her blood pressure is little low troponins elevated Allergies codeine Allergy (Verified 01/23/16 13:58) Itching prednisone Allergy (Verified 01/23/16 13:58) elevated heart rate Home Medications: Topiramate [Topamax*] 100 mg PO BID 10/17/15 clonazePAM [Klonopin*] 0.5 mg PO BID #60 tab 11/05/15 Primidone [Mysoline *] 250 mg PO BID 01/17/16 Albuterol Sulfate [Ventolin Hfa] 1 in IN BID PRN 09/05/18 Aspirin 81 mg PO DAILY 09/05/18 Atorvastatin Calcium [Lipitor] 10 mg PO DAILY 09/05/18 Cholecalciferol (Vitamin D3) [Vitamin D 1000 Iu Tab] 2,000 unit PO DAILY 09/05/18 Ferrous Sulfate [Iron] 325 mg PO DAILY 09/05/18 Sertraline [Zoloft] 50 mg PO DAILY 09/05/18 Umeclidinium Brm/Vilanterol Tr [Anoro Ellipta 62.5-25 Mcg INH] 1 each IH DAILY 09/05/18 - Past Medical/Surgical History Diabetic: No -: Severe COPD -: Essential tremors, Neurology-Dr. 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 - Family History Mother Medical History: Heart disease, Stroke, Other (see notes) Father Medical History: Cancer Brother Medical History: Other (see notes) Notes: Parkinson's - Social History Smoking Status: Unknown if ever smoked Alcohol use: No CD- Drugs: No Caffeine use: No Place of Residence: Home Review of Systems 10-point ROS is otherwise unremarkable General: Weakness Respiratory: Shortness of Breath Physical Examination Temp Pulse Resp BP Pulse Ox 98.0 F 79 18 84/45 L 97 01/04/21 08:00 01/04/21 08:00 01/04/21 08:00 01/04/21 08:00 01/04/21 08:00 General: Alert, In no apparent distress, Oriented x3 Respiratory: Clear to auscultation bilaterally, Diminished Cardiovascular: No edema, Regular rate/rhythm Laboratory Data (last 24 hrs) 01/03/21 20:15: PT 11.0, INR 0.96, APTT 26.7 01/03/21 20:15: WBC 17.40 H, Hgb 15.0, Hct 45.2 H, Plt Count 204 01/03/21 20:15: Sodium 137, Potassium 4.1, BUN 14, Creatinine 0.62, Glucose 142 H, Magnesium 2.2, Total Bilirubin 0.3, AST 68 H, ALT 95 H, Alkaline Phosphatase 114, Lipase 143 - Problems (1) Hypotension Current Visit: Yes Status: Acute Plan: patient is 80 years of age with COPD admitted with the choking spells back to her baseline her blood pressure is little low troponins are elevated white count as also slightly up minimal inflammatory changes on the CT scan chest x-rays clear currently on vancomycin and Zosyn continue with present medication until cultures are available reduce dose of steroids bolus with terminal some normal saline Qualifiers: Hypotension type: unspecified hypotension type Qualified Code(s): I95.9 - Hypotension, unspecified
[2021-01-04] MEDS ORDERED: NA CHLORIDE 0.9% 500 ML IV ONE (12:30)
--- NOTE | 2021-01-04 14:55 | P.PN ---
Subjective Date of Service: 01/04/21 Primary Care Provider: Luis Chief Complaint: copd exacerbation Patient states her breathing is much better. Her troponin trended up. There is a report patient aspirated on her coffee. She has bedside swallow. She has leukocytosis. Physical Examination - Vital Signs Temperature: 98.0 F Blood Pressure: 84/45 Pulse: 79 Respirations: 18 Pulse Ox (%): 97 - Physical Exam General: Alert, In no apparent distress, Oriented x3, Cachectic HEENT: Mucous membr. moist/pink, Sclerae nonicteric Neck: Supple, JVD not distended Respiratory: Clear to auscultation bilaterally, Diminished Cardiovascular: No edema, Regular rate/rhythm, Normal S1 S2 Gastrointestinal: Normal bowel sounds, Soft and benign, Non-distended, No tenderness Musculoskeletal: No swelling, No tenderness Integumentary: No rashes, No erythema Neurological: Normal strength at 5/5 x4 extr, Cranial nerves 3-12 intact - Studies Laboratory Data (last 24 hrs) 01/03/21 20:15: PT 11.0, INR 0.96, APTT 26.7 01/03/21 20:15: WBC 17.40 H, Hgb 15.0, Hct 45.2 H, Plt Count 204 01/03/21 20:15: Sodium 137, Potassium 4.1, BUN 14, Creatinine 0.62, Glucose 142 H, Magnesium 2.2, Total Bilirubin 0.3, AST 68 H, ALT 95 H, Alkaline Phosphatase 114, Lipase 143 Assessment And Plan - Current Problems (Diagnosis) (1) Chronic respiratory failure with hypoxia Current Visit: Yes Status: Acute (2) Aspiration pneumonia Current Visit: Yes Status: Acute (3) COPD exacerbation Onset Date: 10/17/15 Current Visit: No Status: Acute (4) Atrial fibrillation Onset Date: 02/20/16 Current Visit: No Status: Ruled-out Qualifiers: (5) Hepatitis C infection Current Visit: Yes Status: Acute - Plan Troponin trended is flat dole was significantly elevated to 2.4. Continue to trend troponin Cardiology consult Obtain echocardiogram. Aspiration pneumonia suspected. Continue IV Zosyn and vancomycin. Speech therapy to evaluate. Continue treatment for COPD exacerbation with scheduled bronchodilators and IV steroid. Continue Epiclusa for hepatitis-C.
--- NOTE | 2021-01-04 16:17 | CON ---
Date of Consultation: 01/04/2021 Reason For Consultation: Elevated troponin. History Of Present Illness: A 80-year-old female with history of COPD, dependent on home oxygen; his tory of CVA; hypertension; pulmonary hypertension; coronary artery disease, who presented with signif icant cough after aspiration and she became severely hypoxic, required BiPAP, and among the workup tr oponin came back elevated at a level of 3. The patient denies having any chest pain at the present t rahul. Past Medical History: As outlined above in the HPI. Medications: Refer to reconciliation sheet for detailed list. Allergies: CODEINE AND PREDNISONE. Family History: No premature coronary artery disease. Social History: Ex-smoker. Used to be a heavy smoker. Does not drink or use any drugs. Review of Systems: All systems reviewed and they were negative except what was mentioned in the HPI. Physical Examination: Vital Signs: Temperature is 98, pulse 79, breathing at 18, blood pressure is 85/45. General: A pleasant, elderly female, in no apparent distress. Head and Neck: Pupils are equal, reactive to light. Intact eye movements. No JVD. No cervical lym phadenopathy. Neck is supple. Thyroid is not enlarged. Lungs: Decreased breathing sounds with rhonchi. Heart: Regular rate and rhythm. No extra sounds. Abdomen: Soft, nontender. Bowel sounds positive. No organomegaly. No masses or hernia. No rigidi ty or rebound. Extremities: No edema, clubbing, or cyanosis. Intact pulses. Skin: No rashes. Neurologic: Alert, awake, and oriented x3. No acute focal deficits appreciated. Investigations: Troponin, from 2.84 to 2.47. Hemoglobin is 12.6, white blood cell count is 18.6. C hest x-ray, COPD. Assessment And Recommendation: 1.Non-ST elevation myocardial infarction. Chest pain-free at this point. Recommend anticoagulation with heparin drip or full dose of Lovenox 1 mg/kg subcu q.12 hours and recommend coronary angiogram Wednesday morning. Please obtain echocardiogram and start the patient on aspirin 81 mg daily. There ar e too many risk factors and likely she has significant coronary artery disease. In part, this tropon in leak could be demand ischemia, but that does not take that patient has significant risk factors for possible critical coronary artery disease. 2.Hypotension. Recommend small boluses of normal saline at 250 mL each time to get blood pressure s ystolic above 100. I will follow the patient with you. Thank you for the consult. LISA Voice ID: [id number] Report ID: [id number]
[2021-01-04] MEDS: METHYLPREDNISOLONE 125 MG INJ IV SCH (17:35)
--- NOTE | 2021-01-04 19:13 | RAD REPORT ---
EXAM DESCRIPTION: CT Angiography Chest With Intravenous Contrast CLINICAL HISTORY: The patient is 80 years old and is Female; SOB TECHNIQUE: Axial computed tomographic angiography images of the chest with intravenous contrast. S agittal and coronal reformatted images were created and reviewed. This CT exam was performed using one or more of the following dose reduction techniques: automated exposure control, adjustment of t he mA and/or kV according to patient size, and/or use of iterative reconstruction technique. MIP re constructed images were created and reviewed. COMPARISON: No relevant prior studies available. FINDINGS: Pulmonary arteries: Unremarkable. No pulmonary embolism. Aorta: Scattered atherosclerotic vascular calcifications. No thoracic aortic aneurysm. Lungs: Emphysematous changes in the lungs bilaterally. Left basilar consolidation or atelectasis. Bibasilar atelectasis. Pleural space: Unremarkable. No significant effusion. No pneumothorax. Heart: Unremarkable. No cardiomegaly. No significant pericardial effusion. No evidence of R V dysfunction. Bones/joints: Exaggerated kyphosis of the thoracic spine limiting evaluation. No acute fracture. No dislocation. Soft tissues: Unremarkable. Lymph nodes: Unremarkable. No enlarged lymph nodes. IMPRESSION: 1. No evidence of pulmonary embolism. 2. Emphysematous changes in the lungs bilaterally. 3. Left basilar consolidation or atelectasis. 4. Exaggerated kyphosis of the thoracic spine limiting evaluation. Electronically signed by: Jamaal De La Rosa MD 01/03/2021 11:49 PM CDT Due to temporary technical issues with the PACS/Fluency reporting system, reports are being signed by the in house radiologists without review as a courtesy to insure prompt reporting. The interpreting radiologist is fully responsible for the content of the report.
[2021-01-05] MEDS: PIPER/TAZO/NS 3.375gm 3.375 GM/100 ML BAG IVPB SCH ×3 (01:00→16:35)
[2021-01-05] MEDS: METHYLPREDNISOLONE 125 MG INJ IV SCH ×3 (01:00→16:35)
[2021-01-05] MEDS: IPRATROPIUM BROM 0.5MG/2.5ML NEB SCH ×4 (01:20→19:15)
[2021-01-05] MEDS: ALBUTEROL 2.5 MG/3 ML NEB SOL NEB SCH ×4 (01:20→19:15)
[2021-01-05 05:57] LABS: Absolute Lymphocytes (CBC) 0.6 K/uL (0.7-4.9); Hematocrit 35.2 % (36.0-45.0); Lymphocytes % 5.1 % (15.3-44.8); MPV 10.4 fL (7.6-11.3); RBC Red Blood Cell Count 3.88 M/uL (3.86-4.86)
[2021-01-05 06:03] LABS: BUN Blood Urea Nitrogen 11 mg/dL (7-18); Bicarbonate 27 mmol/L (21-32); Glucose Level 139 mg/dL (74-106); Potassium 3.9 mmol/L (3.5-5.1); Sodium Level 142 mmol/L (136-145)
[2021-01-05] MEDS ORDERED: KCL 20 MEQ/100 mL IVPB 20 MEQ/100 ML BAG IV SCH (07:00)
[2021-01-05] MEDS: VELPATASVIR PO SCH (08:39)
[2021-01-05] MEDS: SOFOSBUVIR PO SCH (08:39)
[2021-01-05] MEDS: HOME MED 1 EA UNK (Umeclidinium Brm/Vilanterol Tr [Anoro Ellipta 62.5-25 Mcg Inh] Blst.W.D IH SCH (08:39)
[2021-01-05] MEDS: VITAMIN D 1000 UNIT TAB PO SCH (08:49)
[2021-01-05] MEDS: FERROUS SULFATE 325 MG TAB PO SCH (08:50)
[2021-01-05] MEDS: PRIMIDONE 250 MG TAB PO SCH ×2 (08:50→20:22)
[2021-01-05] MEDS: ATORVASTATIN 10 MG TAB PO SCH (08:50)
[2021-01-05] MEDS: SERTRALINE HCL 50 MG TAB PO SCH (08:50)
[2021-01-05] MEDS: ASPIRIN 81 MG CHEWABLE TABLET PO SCH (08:50)
[2021-01-05] MEDS: TOPIRAMATE 100 MG TAB PO SCH ×2 (08:50→20:22)
[2021-01-05] MEDS: ENOXAPARIN 30 MG/0.3 ML SQ SCH (08:50)
[2021-01-05] MEDS: clonazePAM 0.5 MG TAB PO SCH ×2 (08:53→20:22)
[2021-01-05] MEDS: NA CHLORIDE 0.9% 1,000 ML IV SCH ×2 (11:39→21:41)
--- NOTE | 2021-01-05 13:39 | P.PN ---
Subjective Date of Service: 01/05/21 Primary Care Provider: Luis Chief Complaint: copd exacerbation Patient states her breathing is much better. Troponin trended to 2.8. Nursing staff report no aspiration and no difficulty with swallow since yesterday. Patient denies shortness of breath at this time. Leukocytosis has trended down. Physical Examination - Vital Signs Temperature: 97.5 F Blood Pressure: 145/91 Pulse: 84 Respirations: 18 Pulse Ox (%): 96 - Physical Exam General: Alert, In no apparent distress, Cachectic HEENT: PERRLA, Mucous membr. moist/pink Neck: JVD not distended Respiratory: Normal air movement, Other (Mild scattered wheezes, no crackles.) Cardiovascular: No edema, Regular rate/rhythm, Normal S1 S2 Gastrointestinal: Normal bowel sounds, Soft and benign, Non-distended, No tenderness Musculoskeletal: No swelling Integumentary: No rashes Neurological: Normal speech, Normal strength at 5/5 x4 extr, Cranial nerves 3-12 intact Assessment And Plan - Current Problems (Diagnosis) (1) Chronic respiratory failure with hypoxia Current Visit: Yes Status: Acute (2) Aspiration pneumonia Current Visit: Yes Status: Acute (3) COPD exacerbation Onset Date: 10/17/15 Current Visit: No Status: Acute (4) Atrial fibrillation Onset Date: 02/20/16 Current Visit: No Status: Ruled-out Qualifiers: (5) Hepatitis C infection Current Visit: Yes Status: Acute - Plan Troponin plateaued at 2.[address] Jin recommend echocardiogram and aspirin for now. Echo ordered to be done tomorrow. Continue IV Zosyn and vancomycin. Trial of soft diet. Speech therapy to evaluate tomorrow. Continue treatment for COPD exacerbation with scheduled bronchodilators and IV steroid. Continue Epiclusa for hepatitis-C.
[2021-01-05] MEDS ORDERED: VANCOMYCIN 750 MG in NA CHLORIDE 0.9% 150 ML IVPB SCH (14:00)
[2021-01-05] MEDS ORDERED: METOPROLOL TARTRATE 5 MG/5 ML INJ IV STA (20:05)
[2021-01-05] MEDS ORDERED: LORazepam 2 MG/ML VIAL IV ONE (20:07)
[2021-01-05] MEDS ORDERED: METOPROLOL TARTRATE 5 MG/5 ML INJ IV ONE (20:29)
[2021-01-05] MEDS ORDERED: LORazepam 2 MG/ML VIAL ONE (20:30)
[2021-01-06] MEDS: PIPER/TAZO/NS 3.375gm 3.375 GM/100 ML BAG IVPB SCH ×2 (00:35→07:50)
[2021-01-06] MEDS: METHYLPREDNISOLONE 125 MG INJ IV SCH ×2 (00:36→07:50)
[2021-01-06] MEDS: IPRATROPIUM BROM 0.5MG/2.5ML NEB SCH ×4 (02:00→19:50)
[2021-01-06] MEDS: LEVALBUTEROL 0.63 MG/3 ML NEB NEB SCH ×4 (02:00→19:50)
[2021-01-06 02:05] LABS: Blood O2 Saturation 97.7 % (92-98.5)
[2021-01-06 02:06] LABS: Arterial Blood Carboxyhemoglob 0.7 % (0-1.5); Blood Gas Oxyhemoglobin 96.2 % (94-97)
[2021-01-06 02:11] LABS: Arterial Blood Carboxyhemoglob 0.8 % (0-1.5); Blood Gas Oxyhemoglobin 96.5 % (94-97); Blood O2 Saturation 98.2 % (92-98.5)
[2021-01-06 04:15] LABS: Absolute Lymphocytes (CBC) 0.6 K/uL (0.7-4.9); Basophils % 0.5 % (0-1.3); Hematocrit 36.7 % (36.0-45.0); Lymphocytes % 4.5 % (15.3-44.8); MPV 11.3 fL (7.6-11.3); RBC Red Blood Cell Count 4.02 M/uL (3.86-4.86)
[2021-01-06 04:34] LABS: BUN Blood Urea Nitrogen 11 mg/dL (7-18); Bicarbonate 29 mmol/L (21-32); Glucose Level 159 mg/dL (74-106); Potassium 4.5 mmol/L (3.5-5.1); Sodium Level 143 mmol/L (136-145)
[2021-01-06] MEDS: NA CHLORIDE 0.9% 1,000 ML IV SCH ×3 (05:39→18:28)
[2021-01-06] MEDS: SOFOSBUVIR PO SCH (07:46)
[2021-01-06] MEDS: VELPATASVIR PO SCH (07:46)
[2021-01-06] MEDS: HOME MED 1 EA UNK (Umeclidinium Brm/Vilanterol Tr [Anoro Ellipta 62.5-25 Mcg Inh] Blst.W.D IH SCH (07:47)
[2021-01-06] MEDS: ATORVASTATIN 10 MG TAB PO SCH (07:48)
[2021-01-06] MEDS: PRIMIDONE 250 MG TAB PO SCH ×2 (07:48→21:10)
[2021-01-06] MEDS: VITAMIN D 1000 UNIT TAB PO SCH (07:49)
[2021-01-06] MEDS: ASPIRIN 81 MG CHEWABLE TABLET PO SCH (07:49)
[2021-01-06] MEDS: SERTRALINE HCL 50 MG TAB PO SCH (07:49)
[2021-01-06] MEDS: TOPIRAMATE 100 MG TAB PO SCH ×2 (07:49→21:10)
[2021-01-06] MEDS: clonazePAM 0.5 MG TAB PO SCH ×2 (07:49→21:10)
[2021-01-06] MEDS: ENOXAPARIN 30 MG/0.3 ML SQ SCH (07:50)
[2021-01-06] MEDS: FERROUS SULFATE 325 MG TAB PO SCH (07:50)
[2021-01-06] MEDS: levoFLOXacin 500 MG TAB PO SCH (10:21)
[2021-01-06] MEDS: predniSONE 20 MG TAB PO SCH ×2 (10:22→21:10)
[2021-01-06] MEDS ORDERED: HEPA 1000U/500MLS 2,000 UNIT/1,000 ML BAG IV ONE (10:26)
--- NOTE | 2021-01-06 11:58 | RAD REPORT ---
EXAM DESCRIPTION: Steve Single View01/06/2021 12:54 am CLINICAL HISTORY: The patient is 80 years old and is Female; change LOC TECHNIQUE: Frontal view of the chest. COMPARISON: No relevant prior studies available. FINDINGS: Lungs: Background of emphysematous changes in the lungs. Scattered interstitial and airspace opacities bilaterally throughout the mid to lower lungs. Pleural space: Unremarkable. No pneumothorax. Heart: Unremarkable. Mediastinum: Unremarkable. Bones/joints: Unremarkable. IMPRESSION: 1. Background of emphysematous changes in the lungs. 2. Scattered interstitial and airspace opacities bilaterally throughout the mid to lower lungs. Electronically signed by: Jamaal De La Rosa MD 01/06/2021 1:00 AM CDT Due to temporary technical issues with the PACS/Fluency reporting system, reports are being signed by the in house radiologist without review as a courtesy to ensure prompt reporting. The interpreting r adiologist is fully responsible for the content of the report.
--- NOTE | 2021-01-06 12:04 | P.PN ---
Subjective Date of Service: 01/06/21 Primary Care Provider: Luis Chief Complaint: copd exacerbation elevated troponin non STEMI patient not feeling well weak still has shortness of breath she would experience some desaturation last night had to be placed on BiPAP Review of Systems General: Weakness Respiratory: Shortness of Breath Physical Examination - Vital Signs Temperature: 97.1 F Blood Pressure: 126/69 Pulse: 78 Respirations: 21 Pulse Ox (%): 100 - Physical Exam General: Alert, Moderate distress Respiratory: Clear to auscultation bilaterally, Diminished Cardiovascular: No edema, Normal pulses Assessment & Plan - Problems (Diagnosis) (1) Non-STEMI (non-ST elevated myocardial infarction) Current Visit: Yes Status: Acute Plan: patient's troponins are elevated most likely she has had a non STEMI schedule for a cardiac catheterization blood pressure is now satisfactory there is no evidence of sepsis at baseline patient has severe COPD change to p.o. levofloxacin and p.o. prednisone schedule for a cardiac catheterization sat uration satisfactory
[2021-01-06] MEDS: ENSURE ENLIVE 237 ML CAN PO SCH ×2 (13:21→21:00)
--- NOTE | 2021-01-06 15:21 | P.PN ---
Subjective Date of Service: 01/06/21 Primary Care Provider: Luis Chief Complaint: copd exacerbation elevated troponin non STEMI Patient developed respiratory distress and tachycardia last night. Her heart race to up to 160 and became hypertensive. Patient given a dose of Ativan, and metoprolol. She was later placed on BiPAP. Cardiology saw patient this morning and recommended cardiac catheterization. She was on BiPAP with good oxygen saturation, good tidal volumes and heart rate in the 80s when I saw her this morning. Physical Examination - Vital Signs Temperature: 97.1 F Blood Pressure: 126/69 Pulse: 78 Respirations: 21 Pulse Ox (%): 100 - Physical Exam General: Alert, In no apparent distress HEENT: Other (On BiPAP) Neck: JVD not distended Respiratory: Diminished, Expiratory wheezes (Mild scattered wheezes), Other (No crackles) Cardiovascular: No edema, Regular rate/rhythm, Normal S1 S2 Gastrointestinal: Normal bowel sounds, Soft and benign, Non-distended, No tenderness Musculoskeletal: No swelling, No erythema Integumentary: No rashes Neurological: Normal speech, Normal strength at 5/5 x4 extr Assessment And Plan - Current Problems (Diagnosis) (1) Aspiration pneumonia Current Visit: Yes Status: Acute (2) COPD exacerbation Onset Date: 10/17/15 Current Visit: No Status: Acute (3) Atrial fibrillation Onset Date: 02/20/16 Current Visit: No Status: Ruled-out Qualifiers: (4) Hepatitis C infection Current Visit: Yes Status: Acute (5) Acute on chronic respiratory failure with hypoxemia Current Visit: Yes Status: Acute (6) Cachexia Current Visit: Yes Status: Acute (7) Non-STEMI (non-ST elevated myocardial infarction) Current Visit: Yes Status: Acute (8) Essential tremor Onset Date: 02/20/16 Current Visit: No Status: Chronic - Plan Troponin plateaued at 2.[address] Jin recommend echocardiogram and aspirin for now. Patient plan for cardiac catheterization today. Trial of soft diet. Speech therapy to evaluate tomorrow. Continue treatment for COPD exacerbation with scheduled bronchodilators and steroid. Continue Epiclusa for hepatitis-C. Pulmonary input appreciated. Antibiotics changed to oral Levaquin. Add oral clindamycin for aspiration pneumonitis. Ativan p.r.n. for anxiety. Continue primidone for essential tremor.
[2021-01-06] MEDS ORDERED: HEPARIN 5000 UNIT/ML 1 ML VIAL ONE (15:32)
[2021-01-06] MEDS ORDERED: MIDAZOLAM HCL 2 MG/2 ML INJ ONE (15:32)
[2021-01-06] MEDS ORDERED: FENTANYL CITR 100 MCG/2 ML ONE (15:32)
[2021-01-06] MEDS ORDERED: NITROGLYCERIN 100 MCG/ML SYR (for cath lab use only) IV ONE (15:33)
[2021-01-06] MEDS ORDERED: ATROPINE SULF 1 MG/10 ML SYR IV ONE (15:33)
[2021-01-06] MEDS ORDERED: HEPARIN 10,000 UNIT/10 ML VIAL IV ONE (15:33)
[2021-01-06] MEDS ORDERED: VERAPAMIL HCL 10 MG/4 ML VIAL IV ONE (15:33)
[2021-01-06] MEDS ORDERED: NITROGLYCERIN/D5W 0 MG/0 ML BTL IV ONE (15:33)
--- NOTE | 2021-01-06 19:04 | OP ---
Date of Procedure: 01/06/2021 Surgeon: ZAKIA MONSON Procedures Performed: 1.Selective coronary angiogram. 2.Left heart catheterization. Access: Right radial artery 6-[place] closed with TR band. Indication: Non-ST elevation myocardial infarction. Complications: None. Bleeding: Less than 10 mL. Description: After risks, benefits, and alternatives were explained, the patient agreed to proceed a nd signed informed consent. The patient was brought into the cardiac catheterization laboratory, pre pped and draped in usual sterile fashion. Then, we accessed right radial artery using pediatric micr opuncture kit, placed a 6-[place] slender sheath and then took a 5-[place] Cost 4.0 catheter in the ao rtic root, engaged left main, right coronary artery and then over a J-wire across the aortic valve, r ecorded LVEDP and upon pullback, there was no difference in gradient. I then removed the catheter an d the sheath and placed TR band with good hemostasis. Findings: 1.Left main, large, normal. 2.LAD, moderate size and normal with all branches. 3.Left circumflex with OM is normal. 4.RCA dominant vessel with proximal 30% and mid 30% disease, otherwise no significant coronary arter y disease. Conclusion: Mild nonobstructive coronary artery disease. Recommendation: Medical management. SR/MODL Voice ID: [id number] Report ID: [id number]
[2021-01-07] MEDS: LEVALBUTEROL 0.63 MG/3 ML NEB NEB SCH ×2 (01:20→07:54)
[2021-01-07] MEDS: IPRATROPIUM BROM 0.5MG/2.5ML NEB SCH ×4 (01:20→20:00)
[2021-01-07] MEDS: TRAMADOL HCL 50 MG TAB PO PRN (02:47)
[2021-01-07 04:20] LABS: Absolute Lymphocytes (CBC) 1.1 K/uL (0.7-4.9); Basophils % 0.4 % (0-1.3); Hematocrit 35.4 % (36.0-45.0); MPV 10.4 fL (7.6-11.3); RBC Red Blood Cell Count 3.89 M/uL (3.86-4.86)
[2021-01-07 04:27] LABS: BUN Blood Urea Nitrogen 12 mg/dL (7-18); Bicarbonate 29 mmol/L (21-32); Glucose Level 149 mg/dL (74-106); Potassium 3.8 mmol/L (3.5-5.1); Sodium Level 144 mmol/L (136-145)
[2021-01-07] MEDS ORDERED: KCL 20 MEQ/100 mL IVPB 20 MEQ/100 ML BAG IV SCH (06:00)
--- NOTE | 2021-01-07 08:17 | ECHO ---
HEIGHT: 5 ft 4 in WEIGHT: 87 lb 0 oz DATE OF STUDY: 01/06/[address]: kale ridley 2-DIMENSIONAL: YES M.MODE: YES DOPPLER: YES COLOR FLOW: YES TDS: NO PORTABLE: NO DEFINITY: NO BUBBLE STUDY: NO DIAGNOSIS: CHEST PAIN CARDIAC HISTORY: CATHERIZATION: SURGERY: PROSTHETIC VALVE: PACEMAKER: MEASUREMENTS (cm) DIASTOLIC (NORMALS) SYSTOLIC (NORMALS) IVSd 0.7 (0.6-1.2) LA Diam 3.0 (1.9-4.0) LVEF 62% LVIDd 3.4 (3.5-5.7) LVIDs 2.3 (2.0-3.5) %FS 33% LVPWd 0.8 (0.6-1.2) Ao Diam 2.3 (2.0-3.7) 2 DIMENSIONAL ASSESSMENT: RIGHT ATRIUM: NORMAL LEFT ATRIUM: NORMAL RIGHT VENTRICLE: NORMAL LEFT VENTRICLE: NORMAL TRICUSPID VALVE: SEVERE TRICUSPID REGURGITATION MITRAL VALVE: MODERATE MITRAL REGURGITATION PULMONIC VALVE: NORMAL AORTIC VALVE: NORMAL PERICARDIAL EFFUSION: NONE AORTIC ROOT: NORMAL LEFT VENTRICULAR WALL MOTION: NORMAL. DOPPLER/COLOR FLOW: SEE BELOW. COMMENTS: NORMAL LEFT VENTRICULAR EJECTION FRACTION 55-60% WITH NORMAL WALL MOTION. SEVERE TRICUSPID REGURGITATION. MODERATE MITRAL REGURGITATION. SEVERE PULMONARY HYPERTENSION WITH RIGHT VENTRICULAR SYSTOLIC PRESSURE GREATER THAN 60mmHg. TECHNOLOGIST: BALTAZAR PACHECO
[2021-01-07] MEDS: FERROUS SULFATE 325 MG TAB PO SCH (08:20)
[2021-01-07] MEDS: PANTOPRAZOLE 40MG TABLET PO SCH (08:20)
[2021-01-07] MEDS: ATORVASTATIN 10 MG TAB PO SCH (08:20)
[2021-01-07] MEDS: ASPIRIN 81 MG CHEWABLE TABLET PO SCH (08:20)
[2021-01-07] MEDS: ENOXAPARIN 30 MG/0.3 ML SQ SCH (08:20)
[2021-01-07] MEDS: PRIMIDONE 250 MG TAB PO SCH ×2 (08:20→21:00)
[2021-01-07] MEDS: clonazePAM 0.5 MG TAB PO SCH ×2 (08:21→21:00)
[2021-01-07] MEDS: levoFLOXacin 500 MG TAB PO SCH (08:21)
[2021-01-07] MEDS: predniSONE 20 MG TAB PO SCH ×2 (08:21→21:00)
[2021-01-07] MEDS: TOPIRAMATE 100 MG TAB PO SCH ×2 (08:21→21:00)
[2021-01-07] MEDS: ESCITALOPRAM 20 MG TAB PO SCH (08:21)
[2021-01-07] MEDS: SERTRALINE HCL 50 MG TAB PO SCH (08:21)
[2021-01-07] MEDS: VITAMIN D 1000 UNIT TAB PO SCH (08:21)
[2021-01-07] MEDS: SOFOSBUVIR PO SCH (08:22)
[2021-01-07] MEDS: VELPATASVIR PO SCH (08:22)
[2021-01-07] MEDS: HOME MED 1 EA UNK (Umeclidinium Brm/Vilanterol Tr [Anoro Ellipta 62.5-25 Mcg Inh] Blst.W.D IH SCH (08:22)
[2021-01-07] MEDS: ENSURE ENLIVE 237 ML CAN PO SCH ×3 (08:30→21:00)
[2021-01-07] MEDS ORDERED: HOME MED 1 EA UNK (Pantoprazole Sodium [Protonix] 20 MG Tablet.Dr) PO SCH (09:00)
[2021-01-07] MEDS ORDERED: clonazePAM 0.5 MG TAB PO ONE (09:30)
[2021-01-07] MEDS: NA CHLORIDE 0.9% 1,000 ML IV SCH (10:21)
--- NOTE | 2021-01-07 12:25 | RAD REPORT ---
EXAM DESCRIPTION: RAD - Chest Single View - 01/07/2021 12:14 pm CLINICAL HISTORY: shortness of breath COMPARISON: Portable January 06, portable January 03 TECHNIQUE: AP portable chest image was obtained 01/07/2021 12:14 pm . FINDINGS: Patient has extensive baseline fibrotic lung change. Left lung field is not clearly differ ent from the January 06 examination. Right lung field findings are slightly worse. Right pleural effusion has enlarged. Heart size prominent but stable. No abnormal vascular engorgement. No pneumothorax. No acute bony abnormality seen. No acute aortic findings suspected. IMPRESSION: Small but and large right pleural effusion with worsening lung parenchymal disease in th e right base. Left lung base disease is not substantially different from January 06.
[2021-01-07] MEDS ORDERED: SPIRONOLACTONE 25 MG TABLET PO SCH (12:26)
--- NOTE | 2021-01-07 12:29 | P.PN ---
Subjective Date of Service: 01/07/21 Primary Care Provider: Luis Chief Complaint: Respiratory failure Patient continues to be very weak short of breath acquiring high flow oxygen minimal coronary artery disease by cardiac catheterization Review of Systems General: Weakness Respiratory: Shortness of Breath Physical Examination - Vital Signs Temperature: 97.1 F Blood Pressure: 172/98 Pulse: 116 Respirations: 36 Pulse Ox (%): 93 - Physical Exam General: Alert, Oriented x3, Moderate distress Respiratory: Clear to auscultation bilaterally, Diminished Cardiovascular: No edema, Normal S1 S2, Irregular heart rate/rhythm Assessment & Plan - Problems (Diagnosis) (1) Non-STEMI (non-ST elevated myocardial infarction) Current Visit: Yes Status: Acute Plan: No evidence of significant coronary artery disease by cardiac catheterization (2) Chronic respiratory failure with hypoxia Current Visit: Yes Status: Acute Plan: Patient has chronic respiratory failure severe COPD I have added low-dose metoprolol and spironolactone patient has severe pulmonary hypertension no evidence of pulmonary embolism probably underlying diastolic dysfunction prognosis poor very weak debilitated echocardiogram ordered
[2021-01-07] MEDS: LEVALBUTEROL 0.63 MG/3 ML NEB NEB PRN ×2 (13:20→20:00)
[2021-01-07] MEDS: METOPROLOL XL 25 MG TAB PO SCH (13:43)
--- NOTE | 2021-01-07 15:42 | P.PN ---
Subjective Date of Service: 01/07/21 Primary Care Provider: Luis Chief Complaint: Respiratory failure Subjective: No new changes (patient feels about the same, feels anxious, BIPAP mask is uncomfortable and hurts the bridge of her nose.) Review of Systems 10-point ROS is otherwise unremarkable Physical Examination - Vital Signs Temperature: 97.1 F Blood Pressure: 150/77 Pulse: 120 Respirations: 36 Pulse Ox (%): 93 Assessment & Plan Physician Review Additional Text: Physical Exam General: Alert, In no apparent distress HEENT: on BIPAP Respiratory: Diminished at b/l bases (R>L), mild scattered wheeze Cardiovascular: No edema, tachycardia Gastrointestinal: soft, nontender, nondistended Musculoskeletal: No joint swelling, No erythema Integumentary: No rashes Neurological: Normal speech, Normal strength at 5/5 x4 extr Problem List Acute on chronic respiratory failure with hypoxemia Aspiration pneumonia Acute on chronic COPD exacerbation Chronic atrial fibrillation Hepatitis-C Cachexia NSTEMI Anxiety Essential tremor Troponin plateaued at 2.8 Cardiology consulted, cardiac catheterization done yesterday without significant coronary disease Patient and patient's daughter report anxiety, feels anxiety is playing a component in her breathing was placed on BIPAP overnight give additional klonopin this morning and re-eval pulm consulted - continue PO prednisone, levaquin, bronchodilators; added metoprolol and spironolactone CXR this am with larger R pleural effusion continue soft diet, speech therapy to eval Continue Epiclusa for hepatitis-C. Continue primidone for essential tremor. still needing high levels of oxygen PT/OT consulted Dispo: anticipate dc to SNF, pt currently states she prefers home, but has not moved around much during hospitalization daughter seems open to idea of SNF if needed, will re-eval Time Spent Managing Pts Care (In Minutes): 40
[2021-01-07] MEDS: ACETAMINOPHEN 500 MG TAB PO PRN (18:37)
[2021-01-07 18:48] LABS: HBsAG Nonreactive (Nonreactive)
[2021-01-08] MEDS: IPRATROPIUM BROM 0.5MG/2.5ML NEB SCH ×4 (02:10→19:45)
[2021-01-08 04:11] LABS: Absolute Lymphocytes (CBC) 1.2 K/uL (0.7-4.9); Basophils % 0.5 % (0-1.3); Hematocrit 34.4 % (36.0-45.0); Lymphocytes % 12.8 % (15.3-44.8); MPV 10.6 fL (7.6-11.3); RBC Red Blood Cell Count 3.78 M/uL (3.86-4.86)
[2021-01-08 04:20] LABS: ALT/SGPT 39 U/L (12-78); AST/SGOT 26 U/L (15-37); Albumin 2.5 g/dL (3.4-5.0); Alkaline Phosphatase 63 U/L (45-117); BUN Blood Urea Nitrogen 11 mg/dL (7-18); Bicarbonate 30 mmol/L (21-32); Bilirubin Total 0.3 mg/dL (0.2-1.0); Glucose Level 119 mg/dL (74-106); Potassium 3.9 mmol/L (3.5-5.1); Protein, Total 5.8 g/dL (6.4-8.2); Sodium Level 143 mmol/L (136-145)
[2021-01-08] MEDS: METOPROLOL XL 25 MG TAB PO SCH (05:55)
--- NOTE | 2021-01-08 07:27 | EKG ---
Test Date: 2021-01-07 Test Time: 09:54:50 Truck Crane Operator: LAURA MEASUREMENT RESULTS: Intervals: Rate: 118 IA: 130 QRSD: 72 QT: 326 QTc: 456 [place]: P: 95 IA: 130 QRS: 38 T: 56 INTERPRETIVE STATEMENTS: Sinus tachycardia with premature atrial complexes Otherwise normal ECG Compared to ECG 01/05/2021 20:14:11 Atrial premature complex(es) now present Sinus rhythm no longer present Myocardial infarct finding no longer present Electronically Signed On 01-08-21 07:26:31 CDT by David Roca
--- NOTE | 2021-01-08 08:00 | RAD REPORT ---
EXAM DESCRIPTION: RAD - Chest Single View - 01/08/2021 6:47 am CLINICAL HISTORY: SOB, eval effusion COMPARISON: Portable January 07, portable January 06 TECHNIQUE: AP portable chest image was obtained 01/08/2021 6:47 am . FINDINGS: Extensive baseline interstitial fibrotic pattern again noted. Bilateral pleural effusions are similar to the preceding study. Left lung base opacification shows no improvement. Left base find ings may be fractionally worse. Right lung base findings are not clearly different. Cardiac silhouett e is enlarged. Vasculature is prominent. No pneumothorax. IMPRESSION: Extensive interstitial and alveolar opacification of the lung gutierrez. Left base may be s lightly worse. Bilateral pleural effusions similar to comparison.
[2021-01-08] MEDS: clonazePAM 0.5 MG TAB PO SCH ×2 (08:35→21:51)
[2021-01-08] MEDS: ENOXAPARIN 30 MG/0.3 ML SQ SCH (08:35)
[2021-01-08] MEDS: TOPIRAMATE 100 MG TAB PO SCH ×2 (08:35→21:51)
[2021-01-08] MEDS: levoFLOXacin 500 MG TAB PO SCH (08:35)
[2021-01-08] MEDS: ESCITALOPRAM 20 MG TAB PO SCH (08:35)
[2021-01-08] MEDS: ATORVASTATIN 10 MG TAB PO SCH (08:36)
[2021-01-08] MEDS: SPIRONOLACTONE 25 MG TABLET PO SCH ×2 (08:36→21:52)
[2021-01-08] MEDS: predniSONE 20 MG TAB PO SCH ×3 (08:36→21:50)
[2021-01-08] MEDS: PANTOPRAZOLE 40MG TABLET PO SCH (08:36)
[2021-01-08] MEDS: ASPIRIN 81 MG CHEWABLE TABLET PO SCH (08:36)
[2021-01-08] MEDS: VITAMIN D 1000 UNIT TAB PO SCH (08:36)
[2021-01-08] MEDS: FERROUS SULFATE 325 MG TAB PO SCH (08:36)
[2021-01-08] MEDS: SOFOSBUVIR PO SCH (08:37)
[2021-01-08] MEDS: VELPATASVIR PO SCH (08:37)
[2021-01-08] MEDS: PRIMIDONE 250 MG TAB PO SCH ×2 (08:37→21:51)
[2021-01-08] MEDS: SERTRALINE HCL 50 MG TAB PO SCH (08:37)
[2021-01-08] MEDS: HOME MED 1 EA UNK (Umeclidinium Brm/Vilanterol Tr [Anoro Ellipta 62.5-25 Mcg Inh] Blst.W.D IH SCH (08:37)
[2021-01-08] MEDS: ENSURE ENLIVE 237 ML CAN PO SCH ×3 (08:38→21:00)
[2021-01-08] MEDS: FUROSEMIDE 20 MG TABLET PO SCH ×2 (10:00→16:35)
[2021-01-08] MEDS: ACETAMINOPHEN 500 MG TAB PO PRN (10:00)
[2021-01-08 11:51] LABS: Hep C Virus RNA (PCR)log 2.33 H log IU/mL
--- NOTE | 2021-01-08 18:00 | P.PN ---
Subjective Date of Service: 01/08/21 Primary Care Provider: Luis Chief Complaint: Respiratory failure Subjective: Other (on HFNC overnight, daughter reports pt seemed to sleep well last night. patient reports feeling very weak and can't catch her breath at times.CXR with R pleural effusion) Review of Systems 10-point ROS is otherwise unremarkable Physical Examination - Vital Signs Temperature: 97.9 F Blood Pressure: 115/61 Pulse: 87 Respirations: 24 Pulse Ox (%): 97 Assessment & Plan Physician Review Additional Text: Physical Exam General: Alert, uncomfortable/anxious appearing HEENT: on HFNC Respiratory: Diminished at b/l bases (R>L), mild scattered wheeze Cardiovascular: No edema, tachycardia Gastrointestinal: soft, nontender, nondistended Musculoskeletal: No joint swelling, No erythema Integumentary: No rashes Problem List Acute on chronic respiratory failure with hypoxemia possible aspiration pneumonia Acute on chronic COPD exacerbation Chronic atrial fibrillation severe pulmonary hypertension Hepatitis-C Cachexia NSTEMI Anxiety Essential tremor Troponin plateaued at 2.8 Cardiology consulted, cardiac catheterization done without significant coronary disease Patient and patient's daughter report anxiety, feels anxiety is playing a component in her breathing pulm consulted - continue PO prednisone, levaquin, bronchodilators; added metoprolol and spironolactone on 01/07, add lasix today to diurese CXR with large R pleural effusion - likely contributing to patient's SOB continue soft diet, speech therapy to eval, pt with h/o aspiration risk, previously refused speech eval early in hospitalization Continue Epiclusa for hepatitis-C. Continue primidone for essential tremor. still needing high levels of oxygen PT/OT consulted Dispo: anticipate dc to SNF, daughter seems open to idea of SNF if needed Time Spent Managing Pts Care (In Minutes): 35
--- NOTE | 2021-01-08 19:24 | PN ---
Date of Progress Note: 01/07/2021 Ms. Nolan underwent a heart catheterization by Dr. Jin yesterday for elevated troponin. She w as found to have normal coronaries. Today, she continued to have shortness of breath secondary to pl eural effusion. Her right wrist catheterization site appeared to be intact without any hematoma. He r vital signs remained stable. She is afebrile. She has had a normal ejection fraction and normal c atheterization. I will leave her management up to primary care physician, admitting physician, and Cory Bethea. No change in medical therapy recommended at this point. ABHI/FLORENCIO Voice ID: [id number] Report ID: [id number]
[2021-01-09] MEDS: IPRATROPIUM BROM 0.5MG/2.5ML NEB SCH ×4 (00:45→20:15)
[2021-01-09 04:37] LABS: Absolute Lymphocytes (CBC) 1.4 K/uL (0.7-4.9); Basophils % 0.5 % (0-1.3); Hematocrit 36.9 % (36.0-45.0); Lymphocytes % 9.8 % (15.3-44.8); MPV 10.8 fL (7.6-11.3); RBC Red Blood Cell Count 4.16 M/uL (3.86-4.86)
[2021-01-09 04:41] LABS: BUN Blood Urea Nitrogen 9 mg/dL (7-18); Bicarbonate 32 mmol/L (21-32); Glucose Level 111 mg/dL (74-106); Magnesium 1.9 mg/dL (1.8-2.4); Potassium 3.5 mmol/L (3.5-5.1); Sodium Level 143 mmol/L (136-145)
[2021-01-09] MEDS: METOPROLOL XL 25 MG TAB PO SCH (06:01)
[2021-01-09] MEDS: LEVALBUTEROL 0.63 MG/3 ML NEB NEB PRN (08:20)
[2021-01-09] MEDS: FUROSEMIDE 20 MG TABLET PO SCH ×2 (08:51→16:18)
[2021-01-09] MEDS: ATORVASTATIN 10 MG TAB PO SCH (08:51)
[2021-01-09] MEDS: SERTRALINE HCL 50 MG TAB PO SCH (08:52)
[2021-01-09] MEDS: ESCITALOPRAM 20 MG TAB PO SCH (08:52)
[2021-01-09] MEDS: PANTOPRAZOLE 40MG TABLET PO SCH (08:53)
[2021-01-09] MEDS: VITAMIN D 1000 UNIT TAB PO SCH (08:53)
[2021-01-09] MEDS: predniSONE 20 MG TAB PO SCH ×3 (08:53→21:00)
[2021-01-09] MEDS: PRIMIDONE 250 MG TAB PO SCH ×2 (08:53→20:22)
[2021-01-09] MEDS: ASPIRIN 81 MG CHEWABLE TABLET PO SCH (08:54)
[2021-01-09] MEDS: FERROUS SULFATE 325 MG TAB PO SCH (08:54)
[2021-01-09] MEDS: ENOXAPARIN 30 MG/0.3 ML SQ SCH (08:54)
[2021-01-09] MEDS: TOPIRAMATE 100 MG TAB PO SCH ×2 (08:54→20:22)
[2021-01-09] MEDS: SPIRONOLACTONE 25 MG TABLET PO SCH ×2 (08:54→20:22)
[2021-01-09] MEDS: clonazePAM 0.5 MG TAB PO SCH ×2 (08:55→20:22)
[2021-01-09] MEDS: ENSURE ENLIVE 237 ML CAN PO SCH ×3 (08:55→20:24)
[2021-01-09] MEDS ORDERED: POTASSIUM CL SA 10 MEQ TAB PO ONE (09:00)
[2021-01-09] MEDS: VELPATASVIR PO SCH (09:00)
[2021-01-09] MEDS: SOFOSBUVIR PO SCH (09:00)
[2021-01-09] MEDS: HOME MED 1 EA UNK (Umeclidinium Brm/Vilanterol Tr [Anoro Ellipta 62.5-25 Mcg Inh] Blst.W.D IH SCH (09:00)
--- NOTE | 2021-01-09 09:12 | RAD REPORT ---
EXAM DESCRIPTION: RAD - Chest Single View - 01/09/2021 6:48 am CLINICAL HISTORY: f/u pleural effusion Chest pain. COMPARISON: Chest Single View dated 01/08/2021; Chest Single View dated 01/07/2021; Chest Single View da cat[place] 01/06/2021; Chest Single View dated 01/03/2021 FINDINGS: Portable technique limits examination quality. The lungs are emphysematous with little change in the appearance of bilateral pulmonary opacities and bilateral pleural effusions since comparative study. The heart is mildly enlarged in size. No displa vaibhav fractures. IMPRESSION: Stable chest since yesterday's examination.
--- NOTE | 2021-01-09 12:13 | P.PN ---
Subjective Date of Service: 01/09/21 Primary Care Provider: Luis Chief Complaint: Respiratory failure Subjective: Improving (feeling slightly better, oxygen requirement improved, diuresing well, vitals stable) Review of Systems 10-point ROS is otherwise unremarkable Physical Examination - Vital Signs Temperature: 98.2 F Blood Pressure: 150/84 Pulse: 88 Respirations: 20 Pulse Ox (%): 90 - Studies Microbiology Data (last 24 hrs): 01/03/21 20:00 Blood - Blood Aerobic Blood Culture - Final No growth in 5 days. 01/03/21 20:00 Blood - Blood Anaerobic Blood Culture - Final No growth in 5 days. 01/03/21 20:15 Blood - Blood Aerobic Blood Culture - Final No growth in 5 days. 01/03/21 20:15 Blood - Blood Anaerobic Blood Culture - Final No growth in 5 days. Assessment & Plan Physician Review Additional Text: Physical Exam General: Alert, NAD, slight tachypnea HEENT: Normal conjunctiva, sclerae anicteric Respiratory: Diminished at b/l bases (R>L), on 3 L nasal cannula Cardiovascular: trace b/l pedal edema, tachycardia Gastrointestinal: soft, nontender, nondistended Musculoskeletal: No joint swelling, No erythema Integumentary: No rashes Problem List Acute on chronic respiratory failure with hypoxemia acute on chronic diastolic / right sided heart failure, severe pulmonary hypertension Acute on chronic COPD exacerbation Chronic atrial fibrillation Hepatitis-C Cachexia NSTEMI Anxiety Essential tremor Troponin plateaued at 2.8. Cardiology consulted, cardiac catheterization done without significant coronary disease Patient and patient's daughter report anxiety, feels anxiety is playing a component in her breathing pulm consulted - continue PO prednisone, bronchodilators, dc'd levaquin; added metoprolol and spironolactone on 01/07, added lasix 01/08 to aide in diuresis CXR with large R pleural effusion - contributing to patient's SOB, pt with some improvement with diuresis continue soft diet, speech therapy to eval, pt with h/o aspiration risk, previously refused speech eval early in hospitalization Continue Epiclusa for hepatitis-C. Continue primidone for essential tremor. oxygen requirement improving PT/OT consulted, pt very debilitated Dispo: anticipate dc to SNF, daughter seems open to idea of SNF will update daughter, patient improved and more stable and can start this process Time Spent Managing Pts Care (In Minutes): 35
[2021-01-10] MEDS: IPRATROPIUM BROM 0.5MG/2.5ML NEB SCH ×4 (01:56→20:20)
[2021-01-10 04:51] LABS: Absolute Lymphocytes (CBC) 2.4 K/uL (0.7-4.9); Basophils % 0.7 % (0-1.3); Hematocrit 39.7 % (36.0-45.0); Lymphocytes % 19.8 % (15.3-44.8); MPV 10.2 fL (7.6-11.3); RBC Red Blood Cell Count 4.44 M/uL (3.86-4.86)
[2021-01-10 05:15] LABS: ALT/SGPT 36 U/L (12-78); AST/SGOT 26 U/L (15-37); Albumin 2.5 g/dL (3.4-5.0); Alkaline Phosphatase 70 U/L (45-117); BUN Blood Urea Nitrogen 9 mg/dL (7-18); Bicarbonate 34 mmol/L (21-32); Bilirubin Total 0.3 mg/dL (0.2-1.0); Glucose Level 92 mg/dL (74-106); Magnesium 2.2 mg/dL (1.8-2.4); Potassium 3.6 mmol/L (3.5-5.1); Protein, Total 6.1 g/dL (6.4-8.2); Sodium Level 140 mmol/L (136-145)
[2021-01-10] MEDS: METOPROLOL XL 25 MG TAB PO SCH (05:26)
[2021-01-10] MEDS: PANTOPRAZOLE 40MG TABLET PO SCH (07:53)
[2021-01-10] MEDS: FUROSEMIDE 20 MG TABLET PO SCH ×2 (07:53→17:31)
[2021-01-10] MEDS: VITAMIN D 1000 UNIT TAB PO SCH (07:53)
[2021-01-10] MEDS: FERROUS SULFATE 325 MG TAB PO SCH (07:53)
[2021-01-10] MEDS: predniSONE 20 MG TAB PO SCH ×3 (07:54→21:00)
[2021-01-10] MEDS: ASPIRIN 81 MG CHEWABLE TABLET PO SCH (07:54)
[2021-01-10] MEDS: PRIMIDONE 250 MG TAB PO SCH ×2 (07:55→19:42)
[2021-01-10] MEDS: clonazePAM 0.5 MG TAB PO SCH ×2 (07:55→19:41)
[2021-01-10] MEDS: ATORVASTATIN 10 MG TAB PO SCH (07:55)
[2021-01-10] MEDS: SERTRALINE HCL 50 MG TAB PO SCH (07:55)
[2021-01-10] MEDS: ENSURE ENLIVE 237 ML CAN PO SCH ×3 (07:56→19:41)
[2021-01-10] MEDS: SPIRONOLACTONE 25 MG TABLET PO SCH ×2 (07:56→19:41)
[2021-01-10] MEDS: ENOXAPARIN 30 MG/0.3 ML SQ SCH (07:56)
[2021-01-10] MEDS: SOFOSBUVIR PO SCH (07:57)
[2021-01-10] MEDS: VELPATASVIR PO SCH (07:57)
[2021-01-10] MEDS: HOME MED 1 EA UNK (Umeclidinium Brm/Vilanterol Tr [Anoro Ellipta 62.5-25 Mcg Inh] Blst.W.D IH SCH (07:57)
[2021-01-10] MEDS: TOPIRAMATE 100 MG TAB PO SCH ×2 (07:57→19:41)
[2021-01-10] MEDS: ESCITALOPRAM 20 MG TAB PO SCH (08:06)
[2021-01-10] MEDS ORDERED: POTASSIUM 25 MEQ EFFERV TAB PO ONE (09:00)
--- NOTE | 2021-01-10 17:41 | P.PN ---
Subjective Date of Service: 01/10/21 Primary Care Provider: Luis Chief Complaint: Respiratory failure Subjective: No new changes (no acute events overnight. no new complaints, feeling better) Review of Systems 10-point ROS is otherwise unremarkable Physical Examination - Vital Signs Temperature: 98.5 F Blood Pressure: 130/79 Pulse: 88 Respirations: 18 Pulse Ox (%): 95 Assessment & Plan Physician Review Additional Text: Physical Exam General: Alert, NAD HEENT: Normal conjunctiva, sclerae anicteric Respiratory: Diminished at b/l bases (R>L), on 3 L nasal cannula Cardiovascular: trace b/l pedal edema, mild tachycardia Gastrointestinal: soft, nontender, nondistended Musculoskeletal: No joint swelling, No erythema Integumentary: No rashes Problem List Acute on chronic respiratory failure with hypoxemia acute on chronic diastolic / right sided heart failure, severe pulmonary hypertension Acute on chronic COPD exacerbation Chronic atrial fibrillation Hepatitis-C Cachexia NSTEMI Anxiety Essential tremor Troponin plateaued at 2.8. Cardiology consulted, cardiac catheterization done without significant coronary disease Patient and patient's daughter report anxiety, feels anxiety is playing a component in her breathing pulm consulted - continue PO prednisone, bronchodilators, dc'd levaquin; added metoprolol and spironolactone on 01/07, added lasix 01/08 to aide in diuresis CXR with large R pleural effusion - contributing to patient's SOB, pt with some improvement with diuresis continue soft diet, speech therapy to eval, pt with h/o aspiration risk, previously refused speech eval early in hospitalization Continue Epiclusa for hepatitis-C. Continue primidone for essential tremor. oxygen requirement improving PT/OT consulted, pt very debilitated Dispo: dc to SNF, pending insurance/ approval Time Spent Managing Pts Care (In Minutes): 35
[2021-01-10] MEDS: TRAMADOL HCL 50 MG TAB PO PRN (19:42)
[2021-01-11] MEDS: IPRATROPIUM BROM 0.5MG/2.5ML NEB SCH ×4 (01:25→19:40)
[2021-01-11 05:21] LABS: BUN Blood Urea Nitrogen 9 mg/dL (7-18); Bicarbonate 36 mmol/L (21-32); Glucose Level 97 mg/dL (74-106); Potassium 3.4 mmol/L (3.5-5.1); Sodium Level 140 mmol/L (136-145)
[2021-01-11] MEDS ORDERED: POTASSIUM CL SA 10 MEQ TAB PO ONE (05:23)
[2021-01-11] MEDS: METOPROLOL XL 25 MG TAB PO SCH (05:44)
--- NOTE | 2021-01-11 06:41 | P.PN ---
Subjective Date of Service: 01/11/21 Primary Care Provider: Luis Chief Complaint: Respiratory failure Subjective: Improving (Breathing more comfortably, diuresed nearly 3 L, feeling better sat up to bedside yesterday, still with significant debility / general weakness) Review of Systems 10-point ROS is otherwise unremarkable Physical Examination - Vital Signs Temperature: 97.0 F Blood Pressure: 131/75 Pulse: 87 Respirations: 16 Pulse Ox (%): 95 Assessment & Plan Physician Review Additional Text: Physical Exam General: Alert, NAD HEENT: Normal conjunctiva, sclerae anicteric Respiratory: Diminished at b/l bases, on 3 L nasal cannula, nonlabored Cardiovascular: no edema, regular rate/rhythm Gastrointestinal: soft, nontender, nondistended Musculoskeletal: No joint swelling, No erythema Integumentary: No rashes Problem List Acute on chronic respiratory failure with hypoxemia acute on chronic diastolic / right sided heart failure, severe pulmonary hypertension Acute on chronic COPD exacerbation Chronic atrial fibrillation Hepatitis-C Cachexia NSTEMI Anxiety Essential tremor Troponin plateaued at 2.8. Cardiology consulted, cardiac catheterization done without significant coronary disease Patient and patient's daughter report anxiety, feels anxiety is playing a component in her breathing, on klonopin with some improvement pulm consulted - continue PO prednisone, bronchodilators, dc'd levaquin; added metoprolol and spironolactone on 01/07, added lasix 01/08, decrease to daily 01/11 CXR with large R pleural effusion afew days ago, repeat CXR today with improvement continue soft diet, speech therapy to eval, pt with h/o aspiration risk, previously refused speech eval early in hospitalization Continue Epiclusa for hepatitis-C. Continue primidone for essential tremor. at baseline home O2 PT/OT consulted, pt very debilitated Dispo: dc to SNF, pending insurance/ approval Time Spent Managing Pts Care (In Minutes): 35
[2021-01-11] MEDS: LEVALBUTEROL 0.63 MG/3 ML NEB NEB PRN ×2 (08:00→13:30)
[2021-01-11] MEDS: VITAMIN D 1000 UNIT TAB PO SCH (08:10)
[2021-01-11] MEDS: ASPIRIN 81 MG CHEWABLE TABLET PO SCH (08:11)
[2021-01-11] MEDS: FUROSEMIDE 20 MG TABLET PO SCH (08:11)
[2021-01-11] MEDS: ESCITALOPRAM 20 MG TAB PO SCH (08:11)
[2021-01-11] MEDS: ATORVASTATIN 10 MG TAB PO SCH (08:11)
[2021-01-11] MEDS: SERTRALINE HCL 50 MG TAB PO SCH (08:11)
[2021-01-11] MEDS: clonazePAM 0.5 MG TAB PO SCH ×2 (08:11→20:20)
[2021-01-11] MEDS: DOCUSATE NA 100 MG CAP PO SCH ×2 (08:12→20:20)
[2021-01-11] MEDS: SPIRONOLACTONE 25 MG TABLET PO SCH ×2 (08:12→20:21)
[2021-01-11] MEDS: PANTOPRAZOLE 40MG TABLET PO SCH (08:12)
--- NOTE | 2021-01-11 08:12 | RAD REPORT ---
EXAM DESCRIPTION: RAD - Chest Single View - 01/11/2021 6:51 am CLINICAL HISTORY: SOB,hypoxia, effusions COMPARISON: Portable January 09 TECHNIQUE: AP portable chest image was obtained 01/11/2021 6:51 am . FINDINGS: Extensive chronic interstitial opacification again noted. Bilateral pleural effusions have improved but not fully resolved. Lung base interstitial opacification has improved. No pneumothorax is seen. Heart size has decreased in prominence. Central vasculature is slightly less prominent. No a cute bony abnormality seen. No acute aortic findings suspected. IMPRESSION: CHF/volume overload pattern has improved since January 09 imaging. Heart size has decreased in prominence in the pleural effusions and interstitial edema of each lung b ase improved but not fully resolved.
[2021-01-11] MEDS: FERROUS SULFATE 325 MG TAB PO SCH (08:13)
[2021-01-11] MEDS: TOPIRAMATE 100 MG TAB PO SCH ×2 (08:14→20:21)
[2021-01-11] MEDS: ENSURE ENLIVE 237 ML CAN PO SCH ×3 (08:14→20:21)
[2021-01-11] MEDS: ENOXAPARIN 30 MG/0.3 ML SQ SCH (08:14)
[2021-01-11] MEDS: predniSONE 20 MG TAB PO SCH ×2 (08:14→20:21)
[2021-01-11] MEDS: PRIMIDONE 250 MG TAB PO SCH ×2 (08:14→20:20)
[2021-01-11] MEDS: HOME MED 1 EA UNK (Umeclidinium Brm/Vilanterol Tr [Anoro Ellipta 62.5-25 Mcg Inh] Blst.W.D IH SCH (08:15)
[2021-01-11] MEDS: VELPATASVIR PO SCH (08:15)
[2021-01-11] MEDS: SOFOSBUVIR PO SCH (08:15)
[2021-01-11] MEDS: TRAMADOL HCL 50 MG TAB PO PRN (20:20)
[2021-01-12] MEDS: IPRATROPIUM BROM 0.5MG/2.5ML NEB SCH ×4 (01:05→20:20)
[2021-01-12 05:00] LABS: BUN Blood Urea Nitrogen 12 mg/dL (7-18); Bicarbonate 34 mmol/L (21-32); Glucose Level 109 mg/dL (74-106); Potassium 3.7 mmol/L (3.5-5.1); Sodium Level 141 mmol/L (136-145)
[2021-01-12] MEDS ORDERED: POTASSIUM CL SA 10 MEQ TAB PO ONE (05:04)
[2021-01-12] MEDS: METOPROLOL XL 25 MG TAB PO SCH (05:22)
[2021-01-12] MEDS: SOFOSBUVIR PO SCH (09:00)
[2021-01-12] MEDS: VELPATASVIR PO SCH (09:00)
[2021-01-12] MEDS ORDERED: FUROSEMIDE 20 MG TABLET PO SCH (09:00)
[2021-01-12] MEDS: ENSURE ENLIVE 237 ML CAN PO SCH ×3 (09:00→20:33)
[2021-01-12] MEDS: SPIRONOLACTONE 25 MG TABLET PO SCH ×2 (09:00→20:32)
[2021-01-12] MEDS: HOME MED 1 EA UNK (Umeclidinium Brm/Vilanterol Tr [Anoro Ellipta 62.5-25 Mcg Inh] Blst.W.D IH SCH (09:00)
[2021-01-12] MEDS: VITAMIN D 1000 UNIT TAB PO SCH (10:03)
[2021-01-12] MEDS: FERROUS SULFATE 325 MG TAB PO SCH (10:03)
[2021-01-12] MEDS: ENOXAPARIN 30 MG/0.3 ML SQ SCH (10:03)
[2021-01-12] MEDS: SERTRALINE HCL 50 MG TAB PO SCH (10:04)
[2021-01-12] MEDS: clonazePAM 0.5 MG TAB PO SCH ×2 (10:04→20:33)
[2021-01-12] MEDS: TOPIRAMATE 100 MG TAB PO SCH ×2 (10:04→20:33)
[2021-01-12] MEDS: PANTOPRAZOLE 40MG TABLET PO SCH (10:06)
[2021-01-12] MEDS: ASPIRIN 81 MG CHEWABLE TABLET PO SCH (10:06)
[2021-01-12] MEDS: ATORVASTATIN 10 MG TAB PO SCH (10:06)
[2021-01-12] MEDS: ESCITALOPRAM 20 MG TAB PO SCH (10:06)
[2021-01-12] MEDS: DOCUSATE NA 100 MG CAP PO SCH ×2 (10:07→20:33)
[2021-01-12] MEDS: PRIMIDONE 250 MG TAB PO SCH ×2 (10:07→20:33)
--- NOTE | 2021-01-12 11:03 | P.PN ---
Subjective Date of Service: 01/12/21 Primary Care Provider: Luis Chief Complaint: Respiratory failure Subjective: Improving (feeling better, still very weak, can sit up at bedside with help breathing more comfortably, riley removed yesterday, voiding without issue) Review of Systems 10-point ROS is otherwise unremarkable Physical Examination - Vital Signs Temperature: 97.6 F Blood Pressure: 139/79 Pulse: 94 Respirations: 17 Pulse Ox (%): 95 Assessment & Plan Physician Review Additional Text: Physical Exam General: Alert, NAD HEENT: Normal conjunctiva, sclerae anicteric Respiratory: Diminished at b/l bases, on 2 L nasal cannula, nonlabored Cardiovascular: no edema, regular rate/rhythm Gastrointestinal: soft, nontender, nondistended Musculoskeletal: No joint swelling, No erythema Integumentary: No rashes Problem List Acute on chronic respiratory failure with hypoxemia acute on chronic diastolic / right sided heart failure, severe pulmonary hypertension Acute on chronic COPD exacerbation Chronic atrial fibrillation Hepatitis-C Cachexia NSTEMI Anxiety Essential tremor Troponin plateaued at 2.8. Cardiology consulted, cardiac cath done: without significant coronary disease Patient and daughter feel anxiety has been playing a role in her breathing, klonopin has helped anxiety/panic Pulm consulted - started PO prednisone, bronchodilators, dc'd levaquin; added metoprolol and spironolactone on 01/07, added lasix BID 01/08, decreased to daily 01/11 diuresing well, continue lasix pt reports allergy to prednisone, will dc today CXR 01/11 with improved R pleural effusion continue soft diet, speech therapy, pt with h/o aspiration risk, previously refused speech eval early in hospitalization Continue Epiclusa for hepatitis-C. Continue primidone for essential tremor. at baseline home O2 PT/OT consulted, pt very debilitated Dispo: dc to SNF, pending insurance/ approval Time Spent Managing Pts Care (In Minutes): 35
[2021-01-12] MEDS: TRAMADOL HCL 50 MG TAB PO PRN (20:33)
[2021-01-13] MEDS: IPRATROPIUM BROM 0.5MG/2.5ML NEB SCH (01:40)
[2021-01-13 04:42] LABS: BUN Blood Urea Nitrogen 13 mg/dL (7-18); Bicarbonate 34 mmol/L (21-32); Glucose Level 105 mg/dL (74-106); Potassium 3.9 mmol/L (3.5-5.1); Sodium Level 140 mmol/L (136-145)
[2021-01-13] MEDS ORDERED: POTASSIUM CL SA 10 MEQ TAB PO ONE (04:45)
[2021-01-13] MEDS: METOPROLOL XL 25 MG TAB PO SCH (05:06)
[2021-01-13] MEDS ORDERED: IPRATROPIUM BROM 0.5MG/2.5ML NEB PRN (06:16)
[2021-01-13] MEDS: HOME MED 1 EA UNK (Umeclidinium Brm/Vilanterol Tr [Anoro Ellipta 62.5-25 Mcg Inh] Blst.W.D IH SCH (07:07)
[2021-01-13] MEDS: SOFOSBUVIR PO SCH (07:07)
[2021-01-13] MEDS: VELPATASVIR PO SCH (07:07)
[2021-01-13] MEDS ORDERED: POLYETHYL GLY 3350 17 GM/DOSE PO PRN (07:16)
[2021-01-13] MEDS: SPIRONOLACTONE 25 MG TABLET PO SCH ×2 (07:54→21:08)
[2021-01-13] MEDS: clonazePAM 0.5 MG TAB PO SCH ×2 (07:54→21:08)
[2021-01-13] MEDS: FERROUS SULFATE 325 MG TAB PO SCH (07:54)
[2021-01-13] MEDS: TOPIRAMATE 100 MG TAB PO SCH ×2 (07:54→21:08)
[2021-01-13] MEDS: PANTOPRAZOLE 40MG TABLET PO SCH (07:55)
[2021-01-13] MEDS: PRIMIDONE 250 MG TAB PO SCH ×2 (07:55→21:08)
[2021-01-13] MEDS: ENOXAPARIN 30 MG/0.3 ML SQ SCH (07:55)
[2021-01-13] MEDS: VITAMIN D 1000 UNIT TAB PO SCH (07:55)
[2021-01-13] MEDS: SERTRALINE HCL 50 MG TAB PO SCH (07:55)
[2021-01-13] MEDS: DOCUSATE NA 100 MG CAP PO SCH ×2 (07:55→21:08)
[2021-01-13] MEDS: ESCITALOPRAM 20 MG TAB PO SCH (07:55)
[2021-01-13] MEDS: ASPIRIN 81 MG CHEWABLE TABLET PO SCH (07:55)
[2021-01-13] MEDS: ATORVASTATIN 10 MG TAB PO SCH (07:55)
[2021-01-13] MEDS: ENSURE ENLIVE 237 ML CAN PO SCH ×3 (07:56→21:00)
--- NOTE | 2021-01-13 15:49 | P.PN ---
Subjective Date of Service: 01/13/21 Primary Care Provider: Luis Chief Complaint: Respiratory failure Subjective: Improving (slept well last night, slowly regaining strength, sat up to bedside with assistance, no other complaints) Review of Systems 10-point ROS is otherwise unremarkable Physical Examination - Vital Signs Temperature: 99.4 F Blood Pressure: 110/68 Pulse: 87 Respirations: 20 Pulse Ox (%): 95 Assessment & Plan Physician Review Additional Text: Physical Exam General: Alert, NAD, cachectic HEENT: Normal conjunctiva, sclerae anicteric Respiratory: Diminished at b/l bases, on 2 L nasal cannula, nonlabored Cardiovascular: no edema, regular rate/rhythm Gastrointestinal: soft, nontender, nondistended Musculoskeletal: No joint swelling, No erythema Integumentary: No rashes Problem List Acute on chronic respiratory failure with hypoxemia acute on chronic diastolic / right sided heart failure, severe pulmonary hypertension Acute on chronic COPD exacerbation Chronic atrial fibrillation Hepatitis-C Cachexia NSTEMI Anxiety Essential tremor Troponin plateaued at 2.8. Cardiology consulted, cardiac cath done: without significant coronary disease Patient and daughter feel anxiety has been playing a role in her breathing, klonopin has helped anxiety/panic Pulm consulted - started PO prednisone, bronchodilators, dc'd levaquin; added metoprolol and spironolactone on 01/07, added lasix BID 01/08, decreased to daily 01/11 diuresing well, continue lasix pt reports allergy to prednisone, dc'd 01/12 - pt was never noted to have any reaction during hospitalization CXR 01/11 with improved R pleural effusion continue soft diet, speech therapy, pt with h/o aspiration risk, previously refused speech eval early in hospitalization Continue Epiclusa for hepatitis-C. Continue primidone for essential tremor. at baseline home O2 PT/OT consulted, pt very debilitated Dispo: dc to SNF, pending insurance/ approval Time Spent Managing Pts Care (In Minutes): 35
[2021-01-14 04:11] LABS: BUN Blood Urea Nitrogen 11 mg/dL (7-18); Bicarbonate 33 mmol/L (21-32); Glucose Level 103 mg/dL (74-106); Potassium 3.9 mmol/L (3.5-5.1); Sodium Level 141 mmol/L (136-145)
[2021-01-14 04:34] VITALS: BMI 14.9
[2021-01-14] MEDS ORDERED: POTASSIUM 25 MEQ EFFERV TAB PO ONE (05:17)
[2021-01-14] MEDS: METOPROLOL XL 25 MG TAB PO SCH (05:47)
[2021-01-14] MEDS: ESCITALOPRAM 20 MG TAB PO SCH (08:29)
[2021-01-14] MEDS: TOPIRAMATE 100 MG TAB PO SCH ×2 (08:29→21:20)
[2021-01-14] MEDS: VITAMIN D 1000 UNIT TAB PO SCH (08:29)
[2021-01-14] MEDS: clonazePAM 0.5 MG TAB PO SCH (08:29)
[2021-01-14] MEDS: ASPIRIN 81 MG CHEWABLE TABLET PO SCH (08:30)
[2021-01-14] MEDS: DOCUSATE NA 100 MG CAP PO SCH ×2 (08:30→21:16)
[2021-01-14] MEDS: PRIMIDONE 250 MG TAB PO SCH ×2 (08:30→21:16)
[2021-01-14] MEDS: ATORVASTATIN 10 MG TAB PO SCH (08:30)
[2021-01-14] MEDS: SERTRALINE HCL 50 MG TAB PO SCH (08:30)
[2021-01-14] MEDS: FERROUS SULFATE 325 MG TAB PO SCH (08:30)
[2021-01-14] MEDS: PANTOPRAZOLE 40MG TABLET PO SCH (08:30)
[2021-01-14] MEDS: SPIRONOLACTONE 25 MG TABLET PO SCH ×2 (08:30→21:16)
[2021-01-14] MEDS: ENSURE ENLIVE 237 ML CAN PO SCH ×3 (08:31→21:00)
[2021-01-14] MEDS: SOFOSBUVIR PO SCH (08:31)
[2021-01-14] MEDS: ENOXAPARIN 30 MG/0.3 ML SQ SCH (08:31)
[2021-01-14] MEDS: VELPATASVIR PO SCH (08:31)
[2021-01-14] MEDS: HOME MED 1 EA UNK (Umeclidinium Brm/Vilanterol Tr [Anoro Ellipta 62.5-25 Mcg Inh] Blst.W.D IH SCH (08:31)
[2021-01-14] MEDS ORDERED: clonazePAM 0.5 MG TAB PO PRN (17:30)
--- NOTE | 2021-01-14 17:30 | P.PN ---
Subjective Date of Service: 01/14/21 Primary Care Provider: Luis Chief Complaint: Respiratory failure Patient noted to be drowsy. Heart rate is stable. Patient tolerating 2L oxygen by nasal cannula. Physical Examination - Vital Signs Temperature: 97.6 F Blood Pressure: 145/85 Pulse: 85 Respirations: 16 Pulse Ox (%): 92 - Physical Exam General: In no apparent distress, Cachectic, Other (Drowsy) Neck: JVD not distended Respiratory: Diminished, Other (No rhonchi or wheezes. No crackles.) Cardiovascular: No edema, Regular rate/rhythm, Normal S1 S2 Gastrointestinal: Soft and benign, Non-distended Musculoskeletal: No swelling Integumentary: No rashes Neurological: Other (No focal motor deficit.) Assessment And Plan - Current Problems (Diagnosis) (1) Aspiration pneumonia Current Visit: Yes Status: Acute (2) COPD exacerbation Onset Date: 10/17/15 Current Visit: No Status: Acute (3) Atrial fibrillation Onset Date: 02/20/16 Current Visit: No Status: Ruled-out Qualifiers: (4) Hepatitis C infection Current Visit: Yes Status: Acute (5) Acute on chronic respiratory failure with hypoxemia Current Visit: Yes Status: Acute (6) Cachexia Current Visit: Yes Status: Acute (7) Non-STEMI (non-ST elevated myocardial infarction) Current Visit: Yes Status: Acute (8) Essential tremor Onset Date: 02/20/16 Current Visit: No Status: Chronic - Plan Troponin plateaued at 2.[address] Jin recommend echocardiogram and aspirin for now. Patient plan for cardiac catheterization today. Trial of soft diet. Speech therapy to evaluate tomorrow. Continue treatment for COPD exacerbation with scheduled bronchodilators and steroid. Continue Epiclusa for hepatitis-C. Pulmonary input appreciated. Antibiotics changed to oral Levaquin. Add oral clindamycin for aspiration pneumonitis. Ativan p.r.n. for anxiety. Continue primidone for essential tremor. Physician Review Additional Text: Physical Exam General: Alert, NAD, cachectic HEENT: Normal conjunctiva, sclerae anicteric Respiratory: Diminished at b/l bases, on 2 L nasal cannula, nonlabored Cardiovascular: no edema, regular rate/rhythm Gastrointestinal: soft, nontender, nondistended Musculoskeletal: No joint swelling, No erythema Integumentary: No rashes Problem List Acute on chronic respiratory failure with hypoxemia acute on chronic diastolic / right sided heart failure, severe pulmonary hypertension Acute on chronic COPD exacerbation Chronic atrial fibrillation Hepatitis-C Cachexia NSTEMI Anxiety Essential tremor Troponin plateaued at 2.8. Cardiology consulted, cardiac cath done: without significant coronary disease Patient and daughter feel anxiety has been playing a role in her breathing, klonopin has helped anxiety/panic. Not sure if the Klonopin is making her too drowsy and worsening her weakness. Now that patient is tolerating 2 L oxygen by nasal canula and stable respiratory jacques, will change frequency to p.r.n. Pulmonary is following. Continue PO prednisone, bronchodilators, Continue metoprolol, Lasix and spironolactone pt reports allergy to prednisone, dc'd 01/12 - pt was never noted to have any reaction during hospitalization Continue soft diet. Continue Epiclusa for hepatitis-C. Continue primidone for essential tremor. At baseline home O2 PT very debilitated Dispo: dc to SNF, pending insurance/ approval
[2021-01-15 03:41] LABS: Absolute Lymphocytes (CBC) 2.1 K/uL (0.7-4.9); Hematocrit 40.6 % (36.0-45.0); Lymphocytes % 17.8 % (15.3-44.8); MPV 9.4 fL (7.6-11.3); RBC Red Blood Cell Count 4.55 M/uL (3.86-4.86)
[2021-01-15 03:54] LABS: BUN Blood Urea Nitrogen 14 mg/dL (7-18); Bicarbonate 34 mmol/L (21-32); Glucose Level 97 mg/dL (74-106); Sodium Level 139 mmol/L (136-145)
[2021-01-15] MEDS: METOPROLOL XL 25 MG TAB PO SCH (06:00)
[2021-01-15 08:24] VITALS: O2SAT 99
[2021-01-15] MEDS: SOFOSBUVIR PO SCH (09:00)
[2021-01-15] MEDS: HOME MED 1 EA UNK (Umeclidinium Brm/Vilanterol Tr [Anoro Ellipta 62.5-25 Mcg Inh] Blst.W.D IH SCH (09:00)
[2021-01-15] MEDS: VELPATASVIR PO SCH (09:00)
[2021-01-15] MEDS: TOPIRAMATE 100 MG TAB PO SCH (09:12)
[2021-01-15] MEDS: ENOXAPARIN 30 MG/0.3 ML SQ SCH (09:12)
[2021-01-15] MEDS: FERROUS SULFATE 325 MG TAB PO SCH (09:12)
[2021-01-15] MEDS: ATORVASTATIN 10 MG TAB PO SCH (09:12)
[2021-01-15] MEDS: PRIMIDONE 250 MG TAB PO SCH (09:12)
[2021-01-15] MEDS: ESCITALOPRAM 20 MG TAB PO SCH (09:12)
[2021-01-15] MEDS: DOCUSATE NA 100 MG CAP PO SCH (09:12)
[2021-01-15] MEDS: VITAMIN D 1000 UNIT TAB PO SCH (09:12)
[2021-01-15] MEDS: ASPIRIN 81 MG CHEWABLE TABLET PO SCH (09:12)
[2021-01-15] MEDS: PANTOPRAZOLE 40MG TABLET PO SCH (09:13)
[2021-01-15] MEDS: SPIRONOLACTONE 25 MG TABLET PO SCH (09:13)
[2021-01-15] MEDS: SERTRALINE HCL 50 MG TAB PO SCH (09:13)
[2021-01-15] MEDS: ENSURE ENLIVE 237 ML CAN PO SCH (09:14)
--- NOTE | 2021-01-15 11:19 | P.DS ---
Admission Date: 01/03/21 Discharge Date: 01/15/21 Primary Care Provider: Luis Disposition: TRANSFER TO CUSTODIAL Discharge Condition: FAIR Reason for Admission: Respiratory failure - Problems (1) Aspiration pneumonia Current Visit: Yes Status: Acute (2) COPD exacerbation Onset Date: 10/17/15 Current Visit: No Status: Acute (3) Atrial fibrillation Onset Date: 02/20/16 Current Visit: No Status: Ruled-out Qualifiers: (4) Hepatitis C infection Current Visit: Yes Status: Acute (5) Acute on chronic respiratory failure with hypoxemia Current Visit: Yes Status: Acute (6) Cachexia Current Visit: Yes Status: Acute (7) Non-STEMI (non-ST elevated myocardial infarction) Current Visit: Yes Status: Acute (8) Essential tremor Onset Date: 02/20/16 Current Visit: No Status: Chronic Brief History of Present Illness: 80-year-old woman with a history of COPD on home oxygen, essential tremor, 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 There is a report patient also aspirated on her coffee in her oxygen saturation dropped to 70% at home. Her oxygen saturation was in the 80s in the ED. Blood work in the ED showed leukocytosis, troponin up to 0.27. Chest x-ray showed no acute changes, findings consistent with COPD. CTA thorax done showed emphysematous changes and left basilar atelectasis or consolidation. Patient admitted for further management. Hospital Course: Patient admitted to the medical floor. Troponin trended and it plateaued at 2.8. Cardiology consulted, cardiac cath done which showed no significant coronary disease. Patient and daughter feel anxiety has been playing a role in her breathing. She is on Klonopin which was resume during the hospital stay. The Klonopin helped with her panic and anxiety. Patient seen in consultation by pulmonary-Dr. Bethea. She was treated for COPD exacerbation with steroids, scheduled bronchodilators and broad-spectrum antibiotics. Scheduled Klonopin was later changed to p.r.n. dose due to concern for increased drowsiness. Patient is now tolerating 2 L oxygen by nasal canula and stable respiratory jacques. IV steroid transition to PO prednisone. She had a brief episode of AFib. Continued metoprolol, Lasix and spironolactone pt reports allergy to prednisone which was discontinued during the hospital stay. Patient seen by speech therapy. She did better with swallow study Speech therapy recommended soft diet. Continued Epiclusa for hepatitis-C. Continued primidone for essential tremor. She is currently at baseline home oxygen PT very debilitated. Receives PT sessions. Skilled rehab recommended. He has clinically improved and deemed stable for [facility] Vital Signs/Physical Exam: Temp Pulse Resp BP Pulse Ox 98.2 F 82 17 135/77 94 01/15/21 08:00 01/15/21 09:13 01/15/21 08:00 01/15/21 09:13 01/15/21 08:00 General: Alert, In no apparent distress, Cachectic HEENT: Mucous membr. moist/pink Neck: JVD not distended Respiratory: Diminished Cardiovascular: No edema, Regular rate/rhythm, Normal S1 S2 Gastrointestinal: Normal bowel sounds, Soft and benign, Non-distended Musculoskeletal: No swelling, No tenderness Integumentary: No rashes, No erythema Neurological: Normal strength at 5/5 x4 extr, Cranial nerves 3-12 intact Laboratory Data at Discharge: WBC 11.60 K/uL (4.3-10.9) H 01/15/21 03:13 Hgb 13.8 g/dL (12.0-15.0) 01/15/21 03:13 Hct 40.6 % (36.0-45.0) 01/15/21 03:13 Plt Count 204 K/uL (152-406) 01/15/21 03:13 PT 11.0 SECONDS (9.5-12.5) 01/03/21 20:15 INR 0.96 01/03/21 20:15 APTT 26.7 SECONDS (24.3-36.9) 01/03/21 20:15 Sodium 139 mmol/L (136-145) 01/15/21 03:13 Potassium 4.0 mmol/L (3.5-5.1) 01/15/21 03:13 BUN 14 mg/dL (7-18) 01/15/21 03:13 Creatinine 0.54 mg/dL (0.55-1.3) L 01/15/21 03:13 Glucose 97 mg/dL (74-106) 01/15/21 03:13 Phosphorus 3.2 mg/dL (2.5-4.9) 01/04/21 05:28 Magnesium 2.2 mg/dL (1.8-2.4) 01/10/21 04:09 Total Bilirubin 0.3 mg/dL (0.2-1.0) 01/10/21 04:09 AST 26 U/L (15-37) 01/10/21 04:09 ALT 36 U/L (12-78) 01/10/21 04:09 Alkaline Phosphatase 70 U/L (45-117) 01/10/21 04:09 Troponin I 2.47 ng/mL (0.0-0.045) H* 01/04/21 05:28 Triglycerides 45 mg/dL (<150) 01/04/21 05:28 Cholesterol 177 mg/dL (<200) 01/04/21 05:28 HDL Cholesterol 116 mg/dL (40-60) H 01/04/21 05:28 Cholesterol/HDL Ratio 1.53 01/04/21 05:28 Lipase 143 U/L (73-393) 01/03/21 20:15 Home Medications: Topiramate [Topamax*] 100 mg PO BID 10/17/15 Primidone [Mysoline *] 250 mg PO BID 01/17/16 Aspirin 81 mg PO DAILY 09/05/18 Atorvastatin Calcium [Lipitor*] 10 mg PO DAILY 09/05/18 Cholecalciferol (Vitamin D3) [Vitamin D 1000 Iu Tab*] 2,000 unit PO DAILY 09/05/18 Ferrous Sulfate [Iron] 325 mg PO DAILY 09/05/18 Umeclidinium Brm/Vilanterol Tr [Anoro Ellipta 62.5-25 Mcg INH] 1 each IH DAILY 09/05/18 Sofosbuvir/Velpatasvir [Epclusa 400 mg-100 mg Tablet] 1 tab PO DAILY 01/04/21 Escitalopram [Lexapro*] 1 tab PO DAILY 01/06/21 Pantoprazole Sodium [Protonix] 1 tab PO DAILY 01/06/21 Docusate [Colace Cap*] 100 mg PO BID cap 01/15/21 Ensure Enlive 237 ml PO TID can 01/15/21 Ipratropium Neb [Atrovent*] 0.5 mg NEB [id number] PRN amp 01/15/21 Levalbuterol [Xopenex*] 0.63 mg NEB [id number] PRN vial 01/15/21 Metoprolol Succinate [Toprol Xl*] 25 mg PO [id number] tab 01/15/21 Polyethyl Gly 3350 [Glycolax*] 17 gm PO DAILY PRN udbot 01/15/21 Sertraline [Zoloft*] 50 mg PO DAILY tab 01/15/21 Spironolactone [Aldactone*] 25 mg PO BID tab 01/15/21 clonazePAM [Klonopin*] 0.5 mg PO BID PRN tab 01/15/21 Diet: AHA Activity: Fall precautions Followup: Yancy Smith DO [Primary Care Provider] - (call to schedule follow up appointment) Time spent managing pt's care (in minutes): 35
[2021-01-15 12:38] VITALS: BP 144/83; TEMP 98.1
[2021-01-16] MEDS ORDERED: ENOXAPARIN 40 MG/0.4 ML SQ SCH (09:00)
== END 2021-01-15 12:45 | DRG 177 ==
LOC: ER 19:43 → 4TH 22:25
PROVIDERS: ADMIT Internal Medicine; ATTEND Internal Medicine
PROC: 5A09557 Assistance with Respiratory Ventilation, Greater than 96 Consecutive Hours, Continuous Positive Airway Pressure (ICD-10-PCS; principal; 2021-01-03)
PROC: 4A023N7 Measurement of Cardiac Sampling and Pressure, Left Heart, Percutaneous Approach (ICD-10-PCS; 2021-01-06)
PROC: B2111ZZ Fluoroscopy of Multiple Coronary Arteries using Low Osmolar Contrast (ICD-10-PCS; 2021-01-06)
DX: J69.0 Pneumonitis due to inhalation of food and vomit (principal); I21.4 Non-ST elevation (NSTEMI) myocardial infarction; J96.21 Acute and chronic respiratory failure with hypoxia; I50.33 Acute on chronic diastolic (congestive) heart failure; K86.2 Cyst of pancreas; Z68.1 Body mass index [BMI] 19.9 or less, adult; R64 Cachexia; J44.1 Chronic obstructive pulmonary disease with (acute) exacerbation; I48.20 Chronic atrial fibrillation, unspecified; J90 Pleural effusion, not elsewhere classified; I11.0 Hypertensive heart disease with heart failure; G25.0 Essential tremor; I95.9 Hypotension, unspecified; F41.9 Anxiety disorder, unspecified; D72.829 Elevated white blood cell count, unspecified; I27.20 Pulmonary hypertension, unspecified; I25.10 Atherosclerotic heart disease of native coronary artery without angina pectoris; I25.2 Old myocardial infarction; B18.2 Chronic viral hepatitis C; R00.0 Tachycardia, unspecified; Z88.5 Allergy status to narcotic agent; Z88.8 Allergy status to other drugs, medicaments and biological substances; Z90.710 Acquired absence of both cervix and uterus; Z90.49 Acquired absence of other specified parts of digestive tract; Z99.81 Dependence on supplemental oxygen; Z86.73 Personal history of transient ischemic attack (TIA), and cerebral infarction without residual deficits; Z87.891 Personal history of nicotine dependence; Z79.82 Long term (current) use of aspirin; Z79.899 Other long term (current) drug therapy; Z20.822 Contact with and (suspected) exposure to COVID-19
CPT/HCPCS: 36415; 71045; 71275; 80048; 80053; 80061; 80074; 80076; 80202; 81003; 82274; 82805; 82947; 83036; 83605; 83690; 83735; 83880; 84100; 84132; 84145; 84439; 84443; 84484; 85025; 85610; 85730; 87040; 87520; 87522; 93005; 93306; 93458; 94002; 94003; 94660; 94760; 96372; 96374; 96375; 97110; 97116; 97161; 97530; 99285; C1893; J1644; J1650; J2250; J2543; J2930; J3010; J3480; J7030; J7050; J7512; Q9967; U0003

== ENCOUNTER 2021-03-01 13:08 | Emergency (ER) | payer OTHER ==
--- OUTSIDE RECORDS SUMMARY | 2021-03-01 13:11 | XMS REPORT | Continuity of Care Document ---
:[address] [facility] t Address [address] [place] [address] Care Team Providers Name Role Phone ABY [...] Date Quantity Comments Source Sex Assigned At [facility] Tobacco use and 2018-09-15 2018-09-15 Never used [facility] - exposure 00:00:00 00:00:00 [facility] Center Smoking Status Start Date Stop Date Source Never smoker [facility] Medications Ordered Filled Start Stop Current Ordering [...] mouth Medic al 2,000 unit 24 daily. [place] Tab escitalopra Yes 20mg QD Take 20 [...] MG 00:27: mouth Medical tablet 24 nightly. [place] sertraline Yes 50mg QD Take 50 mg [...] 00:00:00 (1 of 1 - Medical Center [id number] PCV13) [code = PNEUMOCOCCAL 65+ YRS (1 of 1 - LPAN69_Jlvnysa PCV13)] Results Test Description Test Time Test Comments Results Result Comments Source AFB CULTURE + SMEAR 2018-10-26 10:29:00 Test Item Value Reference Range Interpretation Comme nts CULTURE (BEAKER) (test code = 1095) No acid-fast bacilli isolated i n 42 days AFB SMEAR (BEAKER) (test code = 994) No acid fast bacilli seen AFB CULTURE + [id number] 10:29:00 Test Item Value Reference Range Interpretation Comments CULTURE (BEAKER) (test No acid-fast bacilli code = 1095) isolated in 42 days AFB SMEAR (BEAKER) No acid fast bacilli (test code = 994) seen FUNGUS CULTURE + [id number] 18:49:00 Test Item Value Reference Range Interpretation Comments CULTURE (BEAKER) (test No fungus isolated in code = 1095) 28 days FUNGUS SMEAR (BEAKER) No fungi seen (test code = 1406) FUNGUS CULTURE + [id number] 15:39:00 Test Item Value Reference Range Interpretation Comments CULTURE (BEAKER) A <1+ Franci albicans (test code = 1095) FUNGUS SMEAR No fungi seen (BEAKER) (test code = 1406) BASIC METABOLIC [id number] 06:32:00 Test Item Value Reference Range Interpretation [...] (test code = 413) CT, BRAIN, WITHOUT [id number] 21:21:00FINAL REPORT CT, BRAIN, WITHOUT CONTRAST CLINICAL [...] her evaluation with MRI. Signed: Vikki Fox [facility] Verified Date/Time: 09/14/2018 21:21:43 Reading Location: [address] Neuro Reading Room C METABOLIC [id number] 06:28:00 Test Item Value Reference Range Interpretation [...] APPLICABLE FOR DIALYSIS PATIEN TS. VANCOMYCIN LEVEL, [id number] 06:12:00 Test Item Value Reference Range Interpretation [...] (BEAKER) (test code = 413) BASIC METABOLIC [id number] 04:59:00 Test Item Value Reference Range Interpretation [...] (BEAKER) (test code = 413) VANCOMYCIN LEVEL, [id number] 18:15:00 Test Item Value Reference Range Interpretation Comments VANCOMYCIN TROUGH (BEAKER) (test 3.6 ug/mL 10.0-20.0 L code = 522) HOLD vancomycin to draw trough. Do NOT administer vancomycin until level is back. If level is >20, HOLD vancomycin and call pharmacy.TISSUE EXAM 2018-09-12 18:11:00Surgical Pathology Report Case: [id number] Authorizing Provider: Natty Davies MD Collected: 09/09/2018 1314 Ordering Location: [facility] Received: 09/09/2018 1442 SERVICES Pathologist: Sarah [...] IS NEGATIVE Signing Pathologist Direct Phone Line: [phone] signed by Sarah Olvera MD on 09/12/2018 at 6:11 PMPreliminary result electronically signed by Sarah Olvera MD on 09/10/2018 at 2:29 PMThe case was discussed with Dr. Dumont on 09/10/18 at 2:27 [id number]; [id number] A: The specimen is received in a [...] stains. GMSImmunohistochemistry technical testing was performed at [facility] Pathology Laboratory where it was [...] testing.FL, ESOPH, SWALLOW FUNCTION, WITH CINE OR [id number] 10:27:00Reason for exam:->dysphagiaFINAL REPORT Modified barium swallow [...] [place] Verified Date/Time: 09/12/2018 10:27:11 Reading Location: [facility] C013X [facility] Consult Reading Room SURGICALLY OBTAINED CULTURE + GRAM [id number] 17:50:00 Test Item Value Reference Interpretation Comments [...] No organisms seen (BEAKER) (test code = 091474) BRONCHIAL CULTURE + GRAM [id number] 12:36:00 Test Item Value Reference Interpretation Comments [...] (BEAKER) (test code = cocci in pairs 380152) SPIN/CONCENTRATION [id number] 17:45:00 Test Item Value Reference Range Interpretation Comments CONCENTRATION CHARGED (BEAKER) (test Done code = 2657) SPIN/CONCENTRATION [id number] 17:45:00 Test Item Value Reference Range Interpretation Comments CONCENTRATION CHARGED (BEAKER) (test Done code = 2657) VANCOMYCIN LEVEL, [id number] 17:29:00 Test Item Value Reference Range Interpretation Comments VANCOMYCIN RANDOM (BEAKER) (test 2.5 ug/mL code = 523) Reference Range: No NormalsBASIC METABOLIC [id number] 05:23:00 Test Item Value Reference Range Interpretation [...] PATIEN TS. CBC W/PLT COUNT & AUTO [id number] 04:50:00 Test Item Value Reference Range Interpretation [...] (BEAKER) (test code = 2801) BASIC METABOLIC [id number] 05:21:00 Test Item Value Reference Range Interpretation [...] PATIEN TS. CBC W/PLT COUNT & AUTO [id number] 04:53:00 Test Item Value Reference Range Interpretation [...] (test code = 2801) CT, CHEST, WITH [id number] 05:09:00FINAL REPORT EXAM: CT of the chest, [...] [place] Verified Date/Time: 09/08/2018 05:09:44 Reading Location: [facility] B1 C013Y CT Body Reading Room [id number] 01:26:00 Test Item Value Reference Range Interpretation Comments PHOSPHORUS (BEAKER) (test code = 3.2 mg/dL 2.3-4.7 604) [id number] 01:26:00 Test Item Value Reference Range Interpretation Comments MAGNESIUM (BEAKER) (test code = 1.8 mg/dL 1.6-2.6 627) BASIC METABOLIC [id number] 01:26:00 Test Item Value Reference Range Interpretation [...] S NOT APPLICABLE FOR DIALYSIS PATIEN TS. [id number] 01:23:00 Test Item Value Reference Range Interpretation [...] is 2.5-3.5 for patients with mechanical heart valves.[id number] 01:23:00 Test Item Value Reference Range Interpretation Comments PARTIAL THROMBOPLASTIN TIME 27.7 seconds 22.5-36.0 (BEAKER) (test code = 760) PROTHROMBIN [id number] 01:22:00 Test Item Value Reference Range Interpretation [...] = 2801) RAD, CHEST, 1 VIEW, NON [id number] 23:28:00Reason for exam:->foreign body, airwayShould this be [...] [place] Verified Date/Time: 09/07/2018 23:28:48 Reading Location: [address] Consult Reading Room
--- NOTE | 2021-03-01 14:00 | RAD REPORT ---
EXAM DESCRIPTION: RAD - Chest Single View - 03/01/2021 1:54 pm CLINICAL HISTORY: fall COMPARISON: <Comparisons> FINDINGS: Emphysema without superimposed acute process. The heart size is within normal limits.No ac [place] osseous abnormality. No significant pleural effusions or pneumothorax. Apical scarring. IMPRESSION: Emphysema without superimposed acute process.
--- NOTE | 2021-03-01 14:02 | RAD REPORT ---
EXAM DESCRIPTION: RAD - Hip Right 2 View - 03/01/2021 1:54 pm CLINICAL HISTORY: PAIN COMPARISON: <Comparisons> FINDINGS: Displaced mildly comminuted right intertrochanteric hip fracture. No dislocation. Mild rochelle tabular degenerative changes. R IMPRESSION: Right intertrochanteric hip fracture. No dislocation.
--- NOTE | 2021-03-01 14:03 | RAD REPORT ---
EXAM DESCRIPTION: RAD - Pelvis - 03/01/2021 1:54 pm CLINICAL HISTORY: right pelvic pain;Blunt trauma COMPARISON: No comparisons FINDINGS: Right intertrochanteric hip fracture. No dislocation. No pelvic fracture identified. IMPRESSION: No pelvic fracture. Right intertrochanteric hip fracture.
--- NOTE | 2021-03-01 14:05 | RAD REPORT ---
EXAM DESCRIPTION: CT - Head Brain Wo Cont - 03/01/2021 1:57 pm CLINICAL HISTORY: fall, takes aspirin COMPARISON: Head Brain Wo Cont dated 01/16/2016; Ct Stroke Brain Wo Cont dated 11/02/2015 TECHNIQUE: All CT scans are performed using dose optimization technique as appropriate and may inclu de automated exposure control or mA/KV adjustment according to patient size. FINDINGS: No intracranial hemorrhage, hydrocephalus or extra-axial fluid collection.No areas of brai n edema or evidence of midline shift. Presumed small meningioma along the intracerebral falx measurin g 7 mm without appreciable mass effect. This is unchanged. The paranasal sinuses and mastoids are clear. The calvarium is intact. IMPRESSION: No acute intracranial abnormality.
--- NOTE | 2021-03-01 14:20 | ER ---
Nurse's Notes [facility] Name: Sirena Nolan Age: 81 yrs Sex: Female : 1940 Arrival Date: 03/01/2021 Time: 13:[address] Private MD: Diagnosis: Intertrochanteric fracture of femur-Right femur Presentation: 03/01 13:19 Chief complaint: EMS states: Fall from standing happen today. patient called EMS zb herself. Fell on Right hip. Unable to walk. Given 40mcg x2 dose of fentayl from EMS. Takes aspirin no blood thinners. Coronavirus screen: At this time, the client does not indicate any symptoms associated with coronavirus-19. Ebola Screen: No symptoms or risks identified at this time. Initial Sepsis Screen: Does the patient meet any 2 criteria? No. Patient's initial sepsis screen is negative. Does the patient have a suspected source of infection? No. Patient's initial sepsis screen is negative. Risk Assessment: Do you want to hurt yourself or someone else? Patient reports no desire to harm self or others. Onset of symptoms was March 01, 2021. 13:19 Method Of Arrival: EMS: [facility] zb 13:19 Acuity: AISHA 3 zb Triage Assessment: 13:19 General: Appears uncomfortable, Behavior is cooperative, anxious. Pain: Complains of zb pain in right hip Pain currently is 7 out of 10 on a pain scale. Quality of pain is described as aching, sharp, Pain began 2 hours ago. Neuro: Level of Consciousness is awake, alert, obeys commands, Oriented to person, place, time, situation. Cardiovascular: Patient's skin is warm and dry. Respiratory: Airway is patent Respiratory effort is even, unlabored, Respiratory pattern is regular. GI: Abdomen is flat. Derm: Skin is intact, is healthy with good turgor, Bruising that is green, yellow, on right hip. Musculoskeletal: Range of motion: limited in right hip. Historical: - Allergies: 15:36 Codeine; zb 15:36 Prednisone; zb 15:36 morphine; zb - Home Meds: 15:36 anoro 62.5/25mg [Active]; Aspirin Oral [Active]; atorvastatin 10 mg Oral tab [Active]; zb Lexapro 20 mg Oral tab [Active]; melatonin 10 mg Oral cap [Active]; Primidone Oral [Active]; Protonix 40 mg Oral grps [Active]; sertraline 50 mg Oral tab [Active]; topiramate Oral [Active]; Vitamin B-12 Oral 1000 mcg [Active]; Vitamin D Oral [Active]; - PMHx: 15:36 Anxiety; COPD; essential body tremors; Hypertension; Myocardial infarction; Pneumonia; zb - Immunization history:: Adult Immunizations up to date, Client reports receiving the 2nd dose of the Covid vaccine. - Social history:: Smoking status: Patient/guardian denies using tobacco, the patient reports quitting approximately 5 years ago. - Family history:: not pertinent. - Hospitalizations: : No recent hospitalization is reported. Screenin:39 Abuse screen: Denies threats or abuse. Denies injuries from another. Nutritional zb screening: No deficits noted. Tuberculosis screening: No symptoms or risk factors identified. Fall Risk Fall in past 12 months (25 points). Secondary diagnosis (15 points) impaired mobility, IV access (20 points). Ambulatory Aid- None/Bed Rest/Nurse Assist (0 pts). Gait- Normal/Bed Rest/Wheelchair (0 pts) Mental Status- Oriented to own ability (0 pts). Total Goff Fall Scale indicates High Risk Score (45 or more points). Fall prevention measures have been instituted. Side Rails Up X 2 Placed Close to Nursing Station Frequent Obs/Assessments Occuring Family Present and informed to notify staff if the need to leave the bedside As available patient and family educated on Fall Prevention Program and Strategies. Assessment: 14:20 Reassessment: Patient appears in no apparent distress at this time. Patient and/or zb family updated on plan of care and expected duration. Pain level reassessed. Patient is alert, oriented x 3, equal unlabored respirations, skin warm/dry/pink. daughter at bedside. General:. 15:30 Reassessment: Patient appears in no apparent distress at this time. Patient and/or zb family updated on plan of care and expected duration. Pain level reassessed. Patient is alert, oriented x 3, equal unlabored respirations, skin warm/dry/pink. daughter at bedside. remains on 2 L of NC. 16:12 Reassessment: ambulance a bedside. notified ecp medicated for pain. zb Vital Signs: 13:19 BP 126 / 97; Pulse 71; Resp 16; Temp 97.9; Pulse Ox 99% on R/A; Weight 36.29 kg; Height zb 5 ft. 4 in. (162.56 cm); Pain 7/10; 15:34 BP 92 / 71; Pulse 57; Resp 18; Pulse Ox 95% 2 lpm ; zb 13:19 Body Mass Index 13.73 (36.29 kg, 162.56 cm) zb ED Course: 13:11 Patient arrived in ED. rn 13:11 Imer Long MD is Attending Physician. rn 13:18 Maricel Ro, CHRISTAL is Primary Nurse. zb 13:19 Patient has correct armband on for positive identification. Bed in low position. Call mh5 light in reach. Side rails up X2. Warm blanket given. patient monitor on. Pulse ox on. NIBP on. 13:22 Triage completed. zb 13:53 XRAY Pelvis In Process Unspecified. EDMS 13:53 XRAY Hip RIGHT 2 view In Process Unspecified. EDMS 13:53 XRAY Chest (1 view) In Process Unspecified. EDMS 13:57 CT Head Brain wo Cont In Process Unspecified. EDMS 14:14 initiated a transfer with TRES Prince from the [facility] Transfer [facility]/ per TRES becker eb will have to decline the patient in transfer due to being at capacity. 14:16 initiated a transfer with Jane Galeana Rn from the [facility]. eb 14:30 Inserted saline lock: 18 gauge in right antecubital area, using aseptic technique. zb Blood collected. 14:33 administrative approval given by Jane Galeana Rn/ patient has been accepted to [facility] ER/ Dr. Helio Carbajal has accepted the patient in transfer/ report to be called to [phone]. 16:14 No provider procedures requiring assistance completed. Patient transferred, IV remains zb in place. 16:15 Arm band placed on. zb Administered Medications: 14:50 Drug: fentaNYL (PF) 50 mcg {Note: RASS +1.} Route: IVP; Site: left forearm; zb 15:32 Follow up: Response: No adverse reaction; Marked relief of symptoms; Pain is decreased zb 14:50 Drug: Zofran (Ondansetron) 4 mg Route: IVP; Site: left forearm; zb 16:15 Follow up: Response: No adverse reaction; Marked relief of symptoms zb 16:13 Drug: fentaNYL (PF) 25 mcg Route: IVP; Site: right forearm; zb 16:15 Follow up: Response: No adverse reaction; Marked relief of symptoms; Pain is decreased; zb RASS: Alert and Calm (0) Outcome: 14:20 ER care complete, transfer ordered by . rn 16:14 Transferred by private ambulance to [facility], Transfer form completed. zb 16:14 Condition: stable 16:14 Instructed on the need for transfer, Demonstrated understanding of instructions. 16:16 Patient left the ED. zb Signatures: Dispatcher [employer] EDImer Ely MD MD rn Martinez, Maria [facility] Chery Mcgregor [place], RN RN zb
--- NOTE | 2021-03-01 14:20 | EDPHYS ---
Physician Documentation [facility] Name: Sirena Nolan Age: 81 yrs Sex: Female : 1940 Arrival Date: 03/01/2021 Time: 13:[address] Private MD: ED Physician Imer Long HPI: 03/01 14:13 This 81 yrs old Female presents to ER via EMS with complaints of Fall, hip rn injury. 14:13 The patient or guardian reports decreased range of motion, an injury, pain. that rn occurred at home, sustained from a fall, the right lower extremity is shortened, The patient is not able to ambulate. Patient is not able to bear weight. The complaints affect the Right hip. Onset: The symptoms/episode began/occurred just prior to arrival. Modifying factors: The symptoms are alleviated by nothing, the symptoms are aggravated by any movement. Associated signs and symptoms: Pertinent negatives: abdominal pain, chest pain, fever, headache, incontinence, vomiting, weakness. Severity of symptoms: At their worst the symptoms were moderate, in the emergency department the symptoms are unchanged. The patient has not experienced similar symptoms in the past. The patient has not recently seen a physician. Patient reports fall, landed on right hip, denies other injury, no head injury, no LOC. Takes aspirin but no other blood thinner. Remembers all events.. Historical: - Allergies: 15:36 Codeine; zb 15:36 Prednisone; zb 15:36 morphine; zb - Home Meds: 15:36 anoro 62.5/25mg [Active]; Aspirin Oral [Active]; atorvastatin 10 mg Oral tab [Active]; zb Lexapro 20 mg Oral tab [Active]; melatonin 10 mg Oral cap [Active]; Primidone Oral [Active]; Protonix 40 mg Oral grps [Active]; sertraline 50 mg Oral tab [Active]; topiramate Oral [Active]; Vitamin B-12 Oral 1000 mcg [Active]; Vitamin D Oral [Active]; - PMHx: 15:36 Anxiety; COPD; essential body tremors; Hypertension; Myocardial infarction; Pneumonia; zb - Immunization history:: Adult Immunizations up to date, Client reports receiving the 2nd dose of the Covid vaccine. - Social history:: Smoking status: Patient/guardian denies using tobacco, the patient reports quitting approximately 5 years ago. - Family history:: not pertinent. - Hospitalizations: : No recent hospitalization is reported. ROS: 14:13 Constitutional: Negative for fever, chills, and weight loss, Eyes: Negative for injury, rn pain, redness, and discharge, Neck: Negative for injury, pain, and swelling, Cardiovascular: Negative for chest pain, palpitations, and edema, Respiratory: Negative for shortness of breath, cough, wheezing, and pleuritic chest pain, Abdomen/GI: Negative for abdominal pain, nausea, vomiting, diarrhea, and constipation, Back: Negative for injury and pain, : Negative for injury, bleeding, discharge, and swelling, MS/Extremity: Positive for right hip injury and pain Skin: Negative for injury, rash, and discoloration, Neuro: Negative for headache, weakness, numbness, tingling, and seizure. Exam: 14:13 Constitutional: Thin female appears in pain Head/Face: Normocephalic, atraumatic. rn Eyes: Periorbital areas with no swelling, redness, or edema. Neck: No midline cervical tenderness Cardiovascular: Regular rate and rhythm. No pulse deficits. Respiratory: No increased work of breathing, no retractions or nasal flaring. Abdomen/GI: Soft, non-tender Back: No spinal tenderness Skin: Warm, dry MS/ Extremity: Pulses equal, no cyanosis. Positive tenderness right hip, right lower extremity shortened and internally rotated. Ecchymosis lateral right hip Neuro: Awake and alert, GCS 15, oriented to person, place, time, and situation. Cranial nerves II-XII grossly intact. Motor strength 5/5 in all extremities. Sensory grossly intact. Vital Signs: 13:19 BP 126 / 97; Pulse 71; Resp 16; Temp 97.9; Pulse Ox 99% on R/A; Weight 36.29 kg; Height zb 5 ft. 4 in. (162.56 cm); Pain 7/10; 15:34 BP 92 / 71; Pulse 57; Resp 18; Pulse Ox 95% 2 lpm ; zb 13:19 Body Mass Index 13.73 (36.29 kg, 162.56 cm) zb MDM: 13:11 Patient medically screened. rn 14:17 Differential diagnosis: hip fracture, intertrochanteric fracture, femoral neck rn fracture, femoral shaft fracture, strain. Data reviewed: vital signs, nurses notes, radiologic studies, CT scan, plain films, and as a result, I will admit patient. Test interpretation: by ED physician or midlevel provider: plain radiologic studies, Minimally displaced right intertrochanteric femur fracture. Counseling: I had a detailed discussion with the patient and/or guardian regarding: the historical points, exam findings, and any diagnostic results supporting the discharge/admit diagnosis, radiology results, the need for outpatient follow up, to return to the emergency department if symptoms worsen or persist or if there are any questions or concerns that arise at home. Response to treatment: the patient's symptoms have mildly improved after treatment, and as a result, I will admit patient. Admission orders: after a detailed discussion of the patient's condition and case, the admit orders are written by me. ED course: No orthopedic contract writer at this facility this weekend, will have to transfer for orthopedic care of intertrochanteric fracture.. 03/01 13:12 Order name: CBC with Diff rn 03/01 13:12 Order name: Basic Metabolic Panel 03/01 13:12 Order name: Protime (+inr) 03/01 13:12 Order name: Ptt, Activated 03/01 13:12 Order name: CBC with Automated Diff EDHI 03/01 13:12 Order name: Basic Metabolic Panel [facility] 03/01 13:12 Order name: XRAY Pelvis; Complete Time: 14:05 03/01 13:12 Order name: XRAY Hip RIGHT 2 view; Complete Time: 14:05 03/01 13:12 Order name: XRAY Chest (1 view); Complete Time: 14:05 03/01 13:12 Order name: Protime (+INR) EDHI 03/01 13:12 Order name: PTT, Activated Partial Thromb EDHI 03/01 13:13 Order name: CT Head Brain wo Cont; Complete Time: 14:05 rn 03/01 13:12 Order name: IV Start; Complete Time: 16:16 rn 03/01 13:12 Order name: Cardiac monitoring; Complete Time: 13:19 rn 03/01 13:12 Order name: EKG; Complete Time: 13:12 rn 03/01 13:12 Order name: EKG - Nurse/Tech; Complete Time: 13:19 rn Administered Medications: 14:50 Drug: fentaNYL (PF) 50 mcg {Note: RASS +1.} Route: IVP; Site: left forearm; zb 15:32 Follow up: Response: No adverse reaction; Marked relief of symptoms; Pain is decreased zb 14:50 Drug: Zofran (Ondansetron) 4 mg Route: IVP; Site: left forearm; zb 16:15 Follow up: Response: No adverse reaction; Marked relief of symptoms zb 16:13 Drug: fentaNYL (PF) 25 mcg Route: IVP; Site: right forearm; zb 16:15 Follow up: Response: No adverse reaction; Marked relief of symptoms; Pain is decreased; zb RASS: Alert and Calm (0) Disposition Summary: 03/01/21 14:20 Transfer Ordered Transfer Location: [facility] rn Reason: Higher level of care rn Condition: Stable rn Problem: new rn Symptoms: have improved rn Accepting Physician: Helio Buchanan(03/01/21 16:16) zb Diagnosis - Intertrochanteric fracture of femur - Right femur rn Forms: - Medication Reconciliation Form rn - SBAR form rn Signatures: Dispatcher [employer] EDImer Ely MD MD rn Botello, Elizabeth eb Brown, Zipporah, RN RN zb Corrections: (The following items were deleted from the chart) 14:48 14:20 Dr. davina estes 16:16 14:48 Helio Buchanan
[2021-03-01] MEDS ORDERED: ONDANSETRON 4 MG/2 ML VIAL ONE (14:50)
[2021-03-01] MEDS ORDERED: FENTANYL CITR 100 MCG/2 ML ONE ×2 (14:50→16:18)
[2021-03-01 15:44] LABS: Basophils % 0.7 % (0-1.3); Lymphocytes % 11.5 % (15.3-44.8); RBC Red Blood Cell Count 4.53 M/uL (3.86-4.86)
[2021-03-01 15:48] LABS: Protime INR 0.95
[2021-03-01 15:54] LABS: BUN Blood Urea Nitrogen 11 mg/dL (7-18); Bicarbonate 27 mmol/L (21-32); Glucose Level 107 mg/dL (74-106); Potassium 4.6 mmol/L (3.5-5.1); Sodium Level 139 mmol/L (136-145)
[2021-03-01 16:50] VITALS: TEMP 97.9
[2021-03-01 16:51] VITALS: BP 92/71; O2SAT 95
== END 2021-03-01 16:16 | disposition short-term general hospital (02) ==
LOC: ER 13:08
DX: S72.141A Displaced intertrochanteric fracture of right femur, initial encounter for closed fracture (principal); W19.XXXA Unspecified fall, initial encounter; Y92.009 Unspecified place in unspecified non-institutional (private) residence as the place of occurrence of the external cause; Z79.82 Long term (current) use of aspirin; Z88.5 Allergy status to narcotic agent; Z88.8 Allergy status to other drugs, medicaments and biological substances; Z20.822 Contact with and (suspected) exposure to COVID-19; I10 Essential (primary) hypertension; I25.2 Old myocardial infarction
CPT/HCPCS: 93005; 85025; 80048; 36415; 85610; 85730; 70450; 71045; 72170; 73502; 96375; 96374; 99285; U0003; J3010 ×2; J2405

== ENCOUNTER 2022-07-01 15:17 | Emergency (ER) | payer OTHER ==
--- OUTSIDE RECORDS SUMMARY | 2022-07-01 15:21 | XMS REPORT | Continuity of Care Document ---
:1940 Author Organization [facility] t Address [address] [place] [address] Care Team Providers Name Role Phone PennyCamille velasquez Primary Care Physician SHARI PIPER Attending Clinician Unavailable ALLIE GREENFIELD JR Attending Clinician Unavailable ANUPAMA_CCW_Gladys_C Attending Clinician Unavailable Omar Hansen Attending Clinician RAFFAELE PRINCE Attending Clinician Unavailable Terri Mesa MA Attending Clinician Unavailable Gui Pop Attending Clinician Carter Sousa Attending Clinician Chema-Mbayo_A_AH Attending Clinician Unavailable ALMA ABERNATHY Attending Clinician Unavailable Obed Zaldivar Attending Clinician GC_CCW_Gladys_[place] Admitting Clinician Unavailable Carter Sousa Admitting Clinician Chema-Mbayo_A_AH Admitting Clinician Unavailable ALMA ABERNATHY Admitting Clinician Unavailable Obed Zaldivar Admitting Clinician Payers Payer Name Policy Type Policy Number Effective Date Expiration Date S heaven WELLCARE/WELLCARE [id number] 2016 2024 [place] 00:00:00 00:00:00 [id number] 2019 [employer] 00:00:00 (MEDICARE REPLACEMENT/ADVAN TAGE - HMO) Problems Condition Condition Condition Status Onset Resolution Last Treating Co mments Source Name Details Category Date Date Treatment Clinician Date Nondisplac Nondisplac Disease Active [facility] T ed ed 1-18 Health intertroch intertroch 00:00: anteric anteric 00 fracture fracture of right of right femur, femur, subsequent subsequent encounter encounter for closed for closed fracture fracture with with routine routine healing healing Pneumonia P[facility] Bronchial Bronchial Disease Active [facility] body, body, 00:00: Medical initial initial 00 Center encounter encounter Dyspnea Dyspnea Disease [facility] No known No known Disease [place] active active Health problems problems Allergies, Adverse Reactions, Alerts Allergy Allergy Status Severity Reaction(s) Onset Inactive Treating Comm ents Source Name Type Date Date Clinician Codeine Propensi Active 2020-08 [facility] ty to 2-15 Health adverse 00:00: reaction 00 s Predniso Propensi Active 2020-08 [facility] ne ty to 2-15 Health adverse 00:00: reaction 00 s Codeine Drug Active Moderate [facility] nce 00:[facility]: Medical 00 Center Predniso Propensi Active Other (See "make my [facility] to Comments) 2-06 blood [facility] adverse 00:00: vessels Medical reaction 00 rupture" Center s per patient PREDNISO Allergy Active [facility] CODEINE Allergy Active [facility] Social History Social Habit Start Date Stop Date Quantity Comments Source Exposure to Not sure [facility] SARS-CoV-2 (event) Tobacco use and 2018-09-11 2018-09-[address] [facility] [address] [facility] exposure 00:00:00 00:00:00 Medical Center Sex Assigned At 1940 [address] [facility] [address] [facility] 00:00:00 00:00:00 Medical Center Smoking Status Start Date Stop Date Source Tobacco smoking consumption unknown [facility] Never smoker [facility] Ordered Filled Start Stop Current Ordering Indication Dosage Frequency Signature Comments Components Source Medication Medication Date Date Medication? Clinician (SIG) Name Name traMADol 2020-08 Yes [id number] 50mg Q6H Take 1 [facility] (Ultram) 50 2-15 9100 tablet (50 He alth MG tablet 00:00: mg total) 00 by mouth every 6 (six) hours if needed for severe pain. traMADol 2020-08 Yes [id number] 50mg Q6H Take 1 UT (Ultram) 50 2-15 9100 tablet (50 He alth MG tablet 00:00: mg total) 00 by mouth every 6 (six) hours if needed for severe pain. albuterol Yes 2.5mg Q.5D Take 2.[address] (PROVENTIL) 2-15 mg by [facility] 2.5 mg /3 00:27: nebulizati Me dical mL (0.083 24 on 2 (two) Cent er %) times nebulizer daily. solution aspirin 81 Yes 81mg QD Take [address] MG EC 2-15 by mouth [facility] tablet 00:27: daily. Medical 24 Center atorvastati Yes 10mg QD Take [address] n (LIPITOR) 2-15 by mouth Luke s 10 MG 00:27: daily. Medical tablet 24 Center cholecalcif Yes 2000U QD Take 2,[address] sherry, 2-15 Units by [facility] vitamin D3, 00:27: mouth Medic al 2,000 unit 24 daily. Center Tab escitalopra Yes 20mg QD Take [address] m oxalate 2-15 by mouth [facility] (LEXAPRO) 00:27: daily. Medica l 20 MG 24 Center tablet ferrous Yes 325mg Take 325 [facility] sulfate 325 2-15 mg by [facility]ukes (65 FE) MG 00:27: mouth Medica l tablet 24 daily with Center breakfast. pantoprazol Yes 40mg QD Take [address] [facility] e 2-15 by mouth [facility] (PROTONIX) 00:27: daily. Medic al 40 MG 24 Center tablet primidone Yes 250mg QD Take [address] (MYSOLINE) 2-15 mg by Lukes 250 MG 00:27: mouth Medical tablet 24 nightly. Center sertraline Yes 50mg QD Take [address] (ZOLOFT) 50 2-15 by mouth Luke s MG tablet 00:27: daily. Medica l 24 Center topiramate Yes essential 100mg Q.5D Take [address] (TOPAMAX) 2-15 tremor mg by Lukes 100 MG 00:27: mouth 2 Medical tablet 24 (two) Center times daily. clonazePAM Yes .5mg Q.5D Take 0.[address] (KLONOPIN) 2-15 mg by [facility]ukes 0.5 MG 00:27: mouth 2 Medical tablet 24 (two) Center times daily. Missing or Yes 1{dose} QD Inhale [address] Non-Formula 2-15 Dose by Lukes ry 00:27: mouth via Medical Medication 24 inhaler Center daily. albuterol Yes 2.5mg Q.5D Take 2.[address] (PROVENTIL) 2-15 mg by [facility]ukes 2.5 mg /3 00:27: nebulizati Me dical mL (0.083 24 on 2 (two) Cent er %) times nebulizer daily. solution aspirin 81 Yes 81mg QD Take [address] MG EC 2-15 by mouth [facility] tablet 00:27: daily. Medical 24 Center atorvastati Yes 10mg QD Take [address] n (LIPITOR) 2-15 by mouth Luke s 10 MG 00:27: daily. Medical tablet 24 Center cholecalcif Yes 2000U QD Take 2,[address] sherry, 2-15 Units by [facility]ukes vitamin D3, 00:27: mouth Medic al 2,000 unit 24 daily. Center Tab escitalopra Yes 20mg QD Take [address] m oxalate 2-15 by mouth [facility]ukes (LEXAPRO) 00:27: daily. Medica l 20 MG 24 Center tablet ferrous Yes 325mg Take 325 [facility] sulfate 325 2-15 mg by Lukes (65 FE) MG 00:27: mouth Medica l tablet 24 daily with Center breakfast. pantoprazol Yes 40mg QD Take [address] [facility] e 2-15 by mouth Lukes (PROTONIX) 00:27: daily. Medic al 40 MG 24 Center tablet primidone Yes 250mg QD Take [address] (MYSOLINE) 2-15 mg by Lukes 250 MG 00:27: mouth Medical tablet 24 nightly. Center sertraline Yes 50mg QD Take [address] (ZOLOFT) 50 2-15 by mouth Luke s MG tablet 00:27: daily. Medica l 24 Center topiramate Yes essential 100mg Q.5D Take [address] (TOPAMAX) 2-15 tremor mg by Lukes 100 MG 00:27: mouth 2 Medical tablet 24 (two) Center times daily. clonazePAM Yes .5mg Q.5D Take 0.[address] (KLONOPIN) 2-15 mg by Lukes 0.5 MG 00:27: mouth 2 Medical tablet 24 (two) Center times daily. Missing or Yes 1{dose} QD Inhale [address] Non-Formula 2-15 Dose by Lukes ry 00:27: mouth via Medical Medication 24 inhaler Center daily. albuterol Yes 2.5mg Q.5D Take 2.[address] (PROVENTIL) 2-15 mg by [facility]ukes 2.5 mg /3 00:27: nebulizati Me dical mL (0.083 24 on 2 (two) Cent er %) times nebulizer daily. solution aspirin 81 Yes 81mg QD Take [address] MG EC 2-15 by mouth [facility] tablet 00:27: daily. Medical 24 Center atorvastati Yes 10mg QD Take [address] n (LIPITOR) 2-15 by mouth Luke s 10 MG 00:27: daily. Medical tablet 24 Center cholecalcif Yes 2000U QD Take 2,[address] sherry, 2-15 Units by Lukes vitamin D3, 00:27: mouth Medic al 2,000 unit 24 daily. Center Tab escitalopra Yes 20mg QD Take [address] m oxalate 2-15 by mouth [facility]ukes (LEXAPRO) 00:27: daily. Medica l 20 MG 24 Center tablet ferrous Yes 325mg Take 325 [facility] sulfate 325 2-15 mg by Lukes (65 FE) MG 00:27: mouth Medica l tablet 24 daily with Center breakfast. pantoprazol Yes 40mg QD Take [address] e 2-15 by mouth [facility]ukes (PROTONIX) 00:27: daily. Medic al 40 MG 24 Center tablet primidone Yes 250mg QD Take [address] (MYSOLINE) 2-15 mg by Lukes 250 MG 00:27: mouth Medical tablet 24 nightly. Center sertraline Yes 50mg QD Take [address] (ZOLOFT) 50 2-15 by mouth Luke s MG tablet 00:27: daily. Medica l 24 Center topiramate Yes essential 100mg Q.5D Take [address] (TOPAMAX) 2-15 tremor mg by Lukes 100 MG 00:27: mouth 2 Medical tablet 24 (two) Center times daily. clonazePAM Yes .5mg Q.5D Take 0.[address] (KLONOPIN) 2-15 mg by Lukes 0.5 MG 00:27: mouth 2 Medical tablet 24 (two) Center times daily. Missing or Yes 1{dose} QD Inhale [address] Non-Formula 2-15 Dose by Lukes ry 00:27: mouth via Medical Medication 24 inhaler Center daily. albuterol Yes 2.5mg Q.5D Take 2.[address] (PROVENTIL) 2-15 mg by Lukes 2.5 mg /3 00:27: nebulizati Me dical mL (0.083 24 on 2 (two) Cent er %) times nebulizer daily. solution aspirin 81 Yes 81mg QD Take [address] MG EC 2-15 by mouth [facility] tablet 00:27: daily. Medical 24 [place] atorvastati Yes 10mg QD Take [address] n (LIPITOR) 2-15 by mouth Luke s 10 MG 00:27: daily. Medical tablet 24 [place] cholecalcif Yes 2000U QD Take 2,[address] sherry, 2-15 Units by Lukes vitamin D3, 00:27: mouth Medic al 2,000 unit 24 daily. [place] Tab escitalopra Yes 20mg QD Take [address] m oxalate 2-15 by mouth [facility] (LEXAPRO) 00:27: daily. Medica l 20 MG 24 Center tablet ferrous Yes 325mg Take 325 [facility] sulfate 325 2-15 mg by [facility]ukes (65 FE) MG 00:27: mouth Medica l tablet 24 daily with Center breakfast. pantoprazol Yes 40mg QD Take [address] e 2-15 by mouth [facility]ukes (PROTONIX) 00:27: daily. Medic al 40 MG 24 Center tablet primidone Yes 250mg QD Take [address] (MYSOLINE) 2-15 mg by Lukes 250 MG 00:27: mouth Medical tablet 24 nightly. Center sertraline Yes 50mg QD Take [address] (ZOLOFT) 50 2-15 by mouth Luke s MG tablet 00:27: daily. Medica l 24 Center topiramate Yes essential 100mg Q.5D Take [address] (TOPAMAX) 2-15 tremor mg by [facility]ukes 100 MG 00:27: mouth 2 Medical tablet 24 (two) Center times daily. clonazePAM Yes .5mg Q.5D Take 0.[address] (KLONOPIN) 2-15 mg by Lukes 0.5 MG 00:27: mouth 2 Medical tablet 24 (two) Center times daily. Missing or Yes 1{dose} QD Inhale [address] Non-Formula 2-15 Dose by Lukes ry 00:27: mouth via Medical Medication 24 inhaler Center daily. Procedures Procedure Date / Time Performed Performing Clinician Sour e XR FEMUR 2+ VW RIGHT 2021-07-16 18:44:19 Shari Piper [facility] Plan of Care Planned Activity Planned Date Details Comments Source Future Scheduled 2020-04-02 INFLUENZA VACCINE (#1) [facility] 00:00:00 [code = INFLUENZA Medical Ce nter VACCINE (#1)] Future Scheduled 2019-08-[address] [facility] Test 00:00:00 WELLNESS (YEAR 2 or Medical Center FIRST YEAR if no IPPE) [code = MEDICARE ANNUAL WELLNESS (YEAR 2 or FIRST YEAR if no IPPE)] Future Scheduled 2006 PNEUMOCOCCAL 65+ [facility] Test 00:00:00 (1 of 1 - Medical Center [id number] PCV13) [code = PNEUMOCOCCAL 65+ YRS (1 of 1 - [id number] PCV13)] Encounters Start End Encounter Admission Attending Care Care Encounter Source Date/Time Date/Time Type Type Clinicians Facility Department ID 2021-07-16 Outpatient [facility] [id number] [place] 12:31:47 Health 2021-07-11 Outpatient [facility] [id number] [place] 10:44:27 [facility] 2021-05-16 Outpatient [facility] [id number] [place] 12:52:56 [facility] 2021-04-02 Outpatient YANIRA, [facility] [id number] [place] 10:41:03 [facility] 2021-04-02 Outpatient ITASidra , [facility] [id number] [place] 01:04:10 [facility] 2021-03-28 Outpatient [facility] [id number] [place] 08:44:35 [facility] 2022-05-26 2022-05-26 Outpatient GC_CCW_Nguy PRIV PRIV [id number] [facility] 00:00:00 00:00:00 en_C [id number] Medica l 2022-05-22 2022-05-22 Outpatient Krell, MHMISCHER MHMISCHER [id number] 13:45:00 13:45:00 Omar 08 [facility] 2022-04-29 2022-04-29 Outpatient Krereny, MHMISCHER MHMISCHER [id number] 15:30:00 23:59:59 Omar 10 [facility] 2022-04-29 2022-04-29 Outpatient Krell, MHMISCHER MHMISCHER [id number] 15:30:00 15:30:00 Omar 09 [facility] 2022-02-19 2022-02-19 Outpatient Krell, MHMISCHER MHMISCHER [id number] 11:45:00 23:59:59 Omar 07 [facility] 2021-11-17 2021-11-18 Outpatient MHMISCHER MHMISCHER [id number] 15:42:22 15:42:22 2021-10-17 2021-10-17 Outpatient Fayell, MHMISCHER MHMISCHER [id number] 14:15:00 23:59:59 Omar 06 [facility] 2021-09-30 2021-09-30 Outpatient Tyrone, MHMISCHER MHMISCHER [id number] 14:30:00 14:30:00 Omar 05 [facility] 2021-08-20 2021-08-20 Office HARRIET Piper [id number] [place] 11:00:00 11:13:[address] [id number] Health [id number] 2021-08-19 2021-08-19 Outpatient ENDY Hansen FERNANDO [id number] 16:15:00 23:59:59 Omarparish Garcia 2021-07-16 2021-07-16 Office HARRIET Piper 6414 [id number] [place] 11:30:00 13:13:[address] [id number] Health [id number] 2021-05-21 2021-05-21 Office HARRIET PRINCE [id number] [place] 10:12:16 10:27:16 Visit REEJU TRAUMA [id number] He alth CLINIC [id number] 2021-05-21 2021-05-21 Orders MosheTerri UTP [id number] [place] 00:00:00 00:00:00 Only MosheTerri TRAUMA [id number] Health CLINIC [id number] 1 2021-04-02 2021-04-02 Office HARRIET Piper [id number] [place] 09:47:58 10:43:41 Visit Shari TRAUMA [id number] He alth CLINIC [id number] 2021-03-01 2021-03-06 Outpatient Donn [facility] [id number] 17:08:27 15:45:00 Gui Laura 2021-03-01 2021-03-01 Outpatient Merry [facility] [id number] 17:08:27 17:08:27 Carter Sampsonne 2019-09-20 2019-09-20 Outpatient Chema-Mbayo [facility]FP [facility] [address] [place] [address] 07:23:00 07:23:00 _A_ [id number] Family Practic e 2019-09-20 2019-09-20 Outpatient Chema-Mbayo VFP VFP [id number] [facility] 07:23:00 07:23:00 _A_AH [id number] Family Practic e 2019-09-20 2019-09-20 Outpatient Ryann AWAN 79Diego [address] [place] [address] 07:23:00 07:23:00 _A_AH [id number] Family Practic e 2019-09-20 2019-09-20 Outpatient Ryann HEART 79Diego [address] [place] [address] 07:23:00 07:23:00 _A_AH [id number] Family Practic e 2018-12-01 2018-12-02 [id number] 13:28:32 23:59:59 03 2018-06-21 2018-06-21 [id number] 14:45:00 23:59:59 Omar 03 Jose 2018-06-16 2018-06-17 [facility] [id number] 13:20:00 23:59:59 2016-06-27 2016-07-06 Outpatient ÁNGEL Zaldivar [facility] [id number] 14:00:00 17:35:00 Obed M 00 Results Test Description Test Time Test Comments Results Result Comments Source AFB CULTURE + SMEAR 2018-10-26 10:29:00 Test Item Value Reference Range Interpretation Comme nts CULTURE (BEAKER) (test code = 1095) No acid-fast bacilli isolated i n 42 days AFB SMEAR (BEAKER) (test code = 994) No acid fast bacilli seen AFB CULTURE + [id number] 10:29:00 Test Item Value Reference Range Interpretation Comments CULTURE (BEAKER) (test No acid-fast bacilli code = 1095) isolated in 42 days AFB SMEAR (BEAKER) No acid fast bacilli (test code = 994) seen FUNGUS CULTURE + [id number] 18:49:00 Test Item Value Reference Range Interpretation Comments CULTURE (BEAKER) (test No fungus isolated in code = 1095) 28 days FUNGUS SMEAR (BEAKER) No fungi seen (test code = 1406) FUNGUS CULTURE + [id number] 15:39:00 Test Item Value Reference Range Interpretation Comments CULTURE (BEAKER) A <1+ Franci albicans (test code = 1095) FUNGUS SMEAR No fungi seen (BEAKER) (test code = 1406) BASIC METABOLIC [id number] 06:32:00 Test Item Value Reference Range Interpretation [...] (test code = 413) CT, BRAIN, WITHOUT [id number] 21:21:00FINAL REPORT CT, BRAIN, WITHOUT CONTRAST CLINICAL INDICATION: Ataxia, stroke suspected as etiology COMPARISON: None TECHNIQUE: Noncontrast axial CT imaging of the brain and skull. DOSE REDUCTION: Dose modulation, iterative reconstruction, and/or weight-based adjustment of the mA/kV was utilized to reduce the radiation dose to as low as reasonably achievable. FINDINGS:Subcentimeter right para falcine density with adjacent dural thickening (axial image 25) is favored to represent a small meningioma. No intracranial hemorrhage, midline shift or mass effect. Midline structures are normally developed. Mild chronic microvascular ischemic changes of the periventricular and subcortical white matter are present. Remote lacunar ischemic insult of the right caudate. No hydrocephalus. Orbits are within normal limits. No obstructive paranasal sinus disease. IMPRESSION: No acute intracranial findings. Specifically, no large territorial ischemic insult. Of note, CT is suboptimal for this evaluation and if there is persistent neurologic deficit and/or clinical concern, recommend further evaluation with MRI. Signed: Carter Ibrahim MDReport Verified Date/Time: 09/14/2018 21:21:43 Reading Location: [address] Neuro Reading Room [facility] METABOLIC PANEL 2018-09-14 06:28:00 Test Item Value Reference Range Interpretation [...] APPLICABLE FOR DIALYSIS PATIEN TS. VANCOMYCIN LEVEL, [id number] 06:12:00 Test Item Value Reference Range Interpretation [...] (BEAKER) (test code = 413) BASIC METABOLIC [id number] 04:59:00 Test Item Value Reference Range Interpretation [...] (BEAKER) (test code = 413) VANCOMYCIN LEVEL, [id number] 18:15:00 Test Item Value Reference Range Interpretation Comments VANCOMYCIN TROUGH (BEAKER) (test 3.6 ug/mL 10.0-20.0 L code = 522) HOLD vancomycin to draw trough. Do NOT administer vancomycin until level is back. If level is >20, HOLD vancomycin and call pharmacy.TISSUE EXAM 2018-09-12 18:11:00Surgical Pathology Report Case: [id number] Authorizing Provider: Natty Davies MD Collected: 09/09/2018 1314 Ordering Location: [facility] PERIOPER[facility]IVE Received: 09/09/2018 1442 SERVICES Pathologist: Sarah Olvera MD Specimen: Lung, Right Lower Lobe, EBBX process in cytology for colloidon bag This report is issued to give results of additional levels and GMS stain:A. LUNG, RIGHT LOWER LOBE, ENDOBRONCHIAL BIOPSY: - NECROTIC DEBRIS WITH SCATTERED POLARIZABLE FOREIGN MATERIAL - NECROTIC BRONCHIAL WALL TISSUE - CONSISTENT WITH SQUAMOUS METAPLASIA OF THE BRONCHIAL WALL - NEGATIVE FOR MALIGNANCY - GMS STAIN FOR FUNGAL ELEMENTS IS NEGATIVE Signing Pathologist Direct Phone Line: [phone] signed by Sarah Olvera MD on 09/12/2018 at 6:11 PMPreliminary result electronically signed by Sarah Olvera MD on 09/10/2018 at 2:29 PMThe case was discussed with Dr. Dumont on 09/10/18 at 2:27 [id number]; [id number] A: The specimen is received in a formalin-filled container and labeled with the patient's information and labeled "Right lower lobe EBBX" and consists of one fragment of white soft tissue measuring 0.8 cm, six fragments of hong off white soft tissue measuring 0.6 cm, a brown mass measuring 1.2 x 0.7 cm, a white stringy mass measuring 0.6 x 1.8 cm and countless minute white pieces soft tissue, submitted entirely A1 in a mesh bag. Multiple levels are examinedThe interpretation of this case included the use of immunohistochemistry or special stains. GMSImmunohistochemistry technical testing was performed at [facility], Pathology Laboratory where it was developed and [...] testing.FL, ESOPH, SWALLOW FUNCTION, WITH CINE OR [id number] 10:27:00Reason for exam:->dysphagiaFINAL REPORT Modified barium swallow with speech pathology History: dysphagia Te chnique: Modified barium swallow was performed in conjunction with speech pathology. Examination utilized various textures of barium. Fluoroscopic observation was performed during swallowing. Total fluoroscopy time: 2.6 minutes Total number of films: 1 IMPRESSION: There is no evidence of laryngeal pene tration or aspiration. Please refer to the speech pathology report for further details. Signed: John Lr MDReport Verified Date/Time: 09/12/2018 10:27:11 Reading Location: [address] Consult Reading Room SURGICALLY OBTAINED CULTURE + GRAM [id number] 17:50:00 Test Item Value Reference Interpretation Comments [...] No organisms seen (BEAKER) (test code = 819815) BRONCHIAL CULTURE + GRAM [id number] 12:36:00 Test Item Value Reference Interpretation Comments [...] (BEAKER) (test code = cocci in pairs 274700) SPIN/CONCENTRATION [id number] 17:45:00 Test Item Value Reference Range Interpretation Comments CONCENTRATION CHARGED (BEAKER) (test Done code = 2657) SPIN/CONCENTRATION [id number] 17:45:00 Test Item Value Reference Range Interpretation Comments CONCENTRATION CHARGED (BEAKER) (test Done code = 2657) VANCOMYCIN LEVEL, [id number] 17:29:00 Test Item Value Reference Range Interpretation Comments VANCOMYCIN RANDOM (BEAKER) (test 2.5 ug/mL code = 523) Reference Range: No NormalsBASIC METABOLIC [id number] 05:23:00 Test Item Value Reference Range Interpretation [...] PATIEN TS. CBC W/PLT COUNT & AUTO [id number] 04:50:00 Test Item Value Reference Range Interpretation [...] (BEAKER) (test code = 2801) BASIC METABOLIC [id number] 05:21:00 Test Item Value Reference Range Interpretation [...] PATIEN TS. CBC W/PLT COUNT & AUTO [id number] 04:53:00 Test Item Value Reference Range Interpretation [...] (test code = 2801) CT, CHEST, WITH [id number] 05:09:00FINAL REPORT EXAM: CT of the chest, with contrast. CLINICAL HISTORY: eval anatomy, right lower lobe foreign body TECHNIQUE: Chest CT was performed with intravenous contrast. This exam was performed according to our departmental dose optimization program which includes automated exposure control, adjustment of the mA and/or kV according to patient's size and/or use of iterative rec onstructive technique. COMPARISON: None FINDINGS: LOWER NECK: Within normal limits.AIRWAYS AND LUNGS: Secretions in the right mainstem and right lower lobe bronchi. Moderate to severe upper lobe predominant centrilobular emphysema. Small patchy airspace opacities and tree-in-bud nodular in the right lower lobe which may represent pneumonia. Mild right lower lobe linear atelectasis/scarring.PLEURA: Nopleural effusion or pneumothorax.VESSELS: Calcific atherosclerosis.HEART: Mild cardiomegaly. Small pericardial fluid.MANUEL AND MEDIASTINUM: Within normal limits.VISUALIZED UPPER ABDOMEN: Mild pneumobilia . Moderate short segment stenosis of the proximal SMA and severe focal stenosis of the celiac arteryorigin with poststenotic dilatation.SOFT TISSUES: Within normal limits.BONES: No suspicious osseous lesion. IMPRESSION:Moderate to severe emphysema.Small patchy airspace opacities and tree-in-bud nodular in the right lower lobe which may represent pneumonia; consider aspiration given right-sided bronchial secretions. A follow-up chest CT in 3 months is recommended to assess for resolution of right lower lobe pneumonia and to exclude underlying malignancy.Mild cardiomegaly.No radiopaque foreign body.Signed: Ariel Wolfe MDReport Verified Date/Time: 09/08/2018 05:09:44 Reading Location: [facility] C013Y CT Body Reading Room [id number] 01:26:00 Test Item Value Reference Range Interpretation Comments MAGNESIUM (BEAKER) (test code = 1.8 mg/dL 1.6-2.6 627) BASIC METABOLIC [id number] 01:26:00 Test Item Value Reference Range Interpretation [...] S NOT APPLICABLE FOR DIALYSIS PATIEN TS. [id number] 01:26:00 Test Item Value Reference Range Interpretation Comments PHOSPHORUS (BEAKER) (test code = 3.2 mg/dL 2.3-4.7 604) [id number] 01:23:00 Test Item Value Reference Range Interpretation Comments PROTIME (BEAKER) (test code = 12.4 seconds 11.7-14.7 759) INR (BEAKER) (test code = 370) 0.9 <=5.9 PARTIAL THROMBOPLASTIN TIME 27.7 seconds 22.5-36.0 (BEAKER) (test code = 760) RECOMMENDED COUMADIN/WARFARIN INR THERAPY RANGESSTANDARD DOSE: 2.0 - 3.0 Includes: PROPHYLAXIS for venous thrombosis, systemic embolization; TREATMENT for venous thrombosis and/or pulmonary embolus.HIGH RISK: Target INR is 2.5-3.5 for patients with mechanical heart valves.[id number] 01:23:00 Test Item Value Reference Range Interpretation Comments PARTIAL THROMBOPLASTIN TIME 27.7 seconds 22.5-36.0 (BEAKER) (test code = 760) PROTHROMBIN TIME/[id number] 01:22:00 Test Item Value Reference Range Interpretation Comments PROTIME (BEAKER) (test code = 12.4 seconds 11.7-14.7 759) INR (BEAKER) (test code = 370) 0.9 <=5.9 RECOMMENDED COUMADIN/WARFARIN INR THERAPY RANGESSTANDARD DOSE: 2.0 - 3.0 Includes: PROPHYLAXIS for venous thrombosis, systemic embolization; TREATMENT for venous thrombosis and/or pulmonary embolus.HIGH RISK: Target INR is 2.5-3.5 for patients with mechanical heart valves.CBC W/PLT COUNT & AUTO [id number] 01:13:00 Test Item Value Reference Range Interpretation [...] = 2801) RAD, CHEST, 1 VIEW, NON [id number] 23:28:00Reason for exam:->foreign body, airwayShould this be performed at the bedside?->YesFINAL REPORT INDICATION: foreign body, airway COMPARISON:None. TECHNIQUE: Chest radiograph, single view, portable technique. FINDINGS / IMPRESSION: No radiopaque foreign body is identified. No lung collapse is demonstrated. Prominent heart shadow which may be related to portable technique. No focal lung abnormality demonstrated. No pneumothorax or pleural effusion. Osseous structu res unremarkable. Signed: Daniel Guerrier MDReport Verified Date/Time: 09/07/2018 23:28:48 Reading Location: [facility] B1 [id number] Consult Reading Room
--- NOTE | 2022-07-01 16:35 | RAD REPORT ---
EXAM DESCRIPTION: RAD - Chest Single View - 07/01/2022 4:21 pm CLINICAL HISTORY: tachycardia COMPARISON: Chest Single View dated 03/01/2021; Chest Single View dated 01/11/2021; Chest Single View dated 01/09/2021; Chest Single View dated 01/08/2021 FINDINGS: Lines: None. Lungs: No evidence of edema or pneumonia. Emphysema. Pleural: No significant pleural effusions or pneumothorax. Cardiac: The heart size is within normal limits. Mediastinum: Within normal limits. Bones: No acute fractures. Other: None IMPRESSION: Emphysema without superimposed acute process.
[2022-07-01 16:57] LABS: Urine Blood Negative (Negative); Urine Glucose Negative (Negative); Urine Protein Negative (Negative); Urine Specific Gravity 1.015 (1.005-1.030)
[2022-07-01 17:05] LABS: Absolute Lymphocytes (CBC) 1.3 K/uL (0.7-4.9); Hematocrit 40.7 % (36.0-45.0); Lymphocytes % 22.3 % (15.3-44.8); MCV 88.3 fL (80-100); MPV 8.8 fL (7.6-11.3); RBC Red Blood Cell Count 4.61 M/uL (3.86-4.86)
[2022-07-01 17:05] LABS: Urine Bacteria <20 /HPF (<20); Urine Crystals Unidentified Few /HPF (None Seen); Urine Mucus Slight /HPF (None Seen); Urine WBC Clump Rare /HPF (None Seen)
[2022-07-01 17:08] LABS: Protime INR 1.04
--- NOTE | 2022-07-01 17:15 | ER ---
Nurse's Notes [facility] Name: Sirena Nolan Age: 82 yrs Sex: Female : 1940 Arrival Date: 07/01/2022 Time: 15:18 Bed 27 Private MD: Yancy Smith Diagnosis: UTI/ Urinary tract infection, site not specified Presentation: 07/01 15:24 Chief complaint: Patient states: Dysuria and R sided abd pain for 1 month, worsening. ll1 No fever. No N/V/D. Coronavirus screen: Vaccine status: Patient reports receiving the 2nd dose of the covid vaccine. Client denies travel out of the [place] in the last 14 days. At this time, the client does not indicate any symptoms associated with coronavirus-19. Coronavirus screen: Vaccine status:. Ebola Screen: Patient denies travel to an Ebola-affected area in the 21 days before illness onset. Initial Sepsis Screen: Does the patient meet any 2 criteria? No. Patient's initial sepsis screen is negative. Does the patient have a suspected source of infection? Yes: Dysuria/Frequency/Urgency/UTI. Risk Assessment: Do you want to hurt yourself or someone else? Patient reports no desire to harm self or others. Onset of symptoms was May 31, 2022. 15:24 Method Of Arrival: Ambulatory ll1 15:24 Acuity: AISHA 3 ll1 Triage Assessment: 15:31 General: Appears uncomfortable, Behavior is cooperative, appropriate for age. Pain: ll1 Complains of pain in abdomen Pain currently is 10 out of 10 on a pain scale. Quality of pain is described as aching. Neuro: No deficits noted. Cardiovascular: No deficits noted. GI: Reports lower abdominal pain. : Reports pain with urination. Historical: - Allergies: 15:24 Codeine; ll1 15:24 Morphine; ll1 15:24 Prednisone; ll1 - Home Meds: 17:41 anoro 62.5/25mg [Active]; Aspirin Oral [Active]; atorvastatin 10 mg Oral tab [Active]; eh3 ferrous sulfate 325 mg (65 mg iron) Oral tab [Active]; Lexapro 20 mg Oral tab [Active]; melatonin 10 mg Oral cap [Active]; Primidone Oral [Active]; Protonix 40 mg Oral grps [Active]; sertraline 50 mg Oral tab [Active]; topiramate Oral [Active]; Ventolin Rotahaler/Rotacaps Inhl [Active]; Vitamin B-12 Oral 1000 mcg [Active]; Vitamin D Oral [Active]; - PMHx: 15:24 Anxiety; Hypertension; Myocardial infarction; essential body tremors; COPD; Pneumonia; ll1 - PSHx: 15:30 Hip SX; hysterectomy; ll1 - Immunization history:: Client reports receiving the 2nd dose of the Covid vaccine. - Social history:: Smoking status: Patient denies any tobacco usage or history of. Screenin:40 Abuse screen: Denies threats or abuse. Denies injuries from another. Nutritional eh3 screening: No deficits noted. Tuberculosis screening: No symptoms or risk factors identified. Fall Risk None identified. Assessment: 15:40 General: Appears in no apparent distress. uncomfortable, Behavior is calm, cooperative, eh3 appropriate for age. Pain: Complains of pain in posterior aspect of left lateral abdomen and anterior aspect of left lateral abdomen Pain does not radiate. Pain currently is 4 out of 10 on a pain scale. Quality of pain is described as aching. Neuro: Level of Consciousness is awake, alert, obeys commands, Oriented to person, place, time, situation. Cardiovascular: Capillary refill < 3 seconds Patient's skin is warm and dry. Respiratory: Airway is patent Respiratory effort is even, unlabored, Respiratory pattern is regular, symmetrical. GI: No signs and/or symptoms were reported involving the gastrointestinal system. Abdomen is flat, non-distended. : Reports burning with urination, since 1 month ago. EENT: No signs and/or symptoms were reported regarding the EENT system. Derm: No signs and/or symptoms reported regarding the dermatologic system. Musculoskeletal: No signs and/or symptoms reported regarding the musculoskeletal system. 16:40 Reassessment: Patient and/or family updated on plan of care and expected duration. Pain eh3 level reassessed. Patient is alert, oriented x 3, equal unlabored respirations, skin warm/dry/pink. 17:40 Reassessment: Patient and/or family updated on plan of care and expected duration. Pain eh3 level reassessed. Patient is alert, oriented x 3, equal unlabored respirations, skin warm/dry/pink. Vital Signs: 15:24 BP 154 / 99; Pulse 114; Resp 19; Temp 98.8; Pulse Ox 97% on 2 lpm NC; Weight 40.82 kg; ll1 Height 5 ft. 2 in. (157.48 cm); Pain 10/10; 15:48 BP 140 / 104; Pulse 94; Resp 18; Pulse Ox 99% on R/A; eh3 16:15 BP 138 / 79; Pulse 91; Resp 18; Pulse Ox 100% on R/A; eh3 17:00 BP 102 / 86; Pulse 97; Resp 13; Pulse Ox 100% on R/A; eh3 15:24 Body Mass Index 16.46 (40.82 kg, 157.48 cm) ll1 ED Course: 15:18 Patient arrived in ED. am2 15:18 Yancy Smith MD is Private Physician. am2 15:21 Caridad Blackman [facility]C [facility] snw 15:21 Caleb Cross MD is Attending Physician. snw 15:24 Arm band placed on. ll1 15:30 Triage completed. ll1 15:36 Jane Hi, CHRISTAL is Primary Nurse. eh3 15:40 Patient has correct armband on for positive identification. Bed in low position. Call eh3 light in reach. Side rails up X2. Client placed on continuous cardiac and pulse oximetry monitoring. NIBP monitoring applied. Door closed. Noise minimized. Warm blanket given. 16:22 Chest Single View XRAY In Process Unspecified. EDMS 16:30 Inserted saline lock: 20 gauge in right antecubital area, using aseptic technique. eh3 Blood collected. 17:14 Yancy Smith MD is Referral Physician. snw 17:42 No provider procedures requiring assistance completed. IV discontinued, intact, eh3 bleeding controlled, No redness/swelling at site. Pressure dressing applied. Administered Medications: 17:23 Drug: Rocephin (cefTRIAXone) 1 grams Route: IV; Rate: calculated rate; Site: right eh3 antecubital; 17:40 Follow up: Response: No adverse reaction; IV Status: Completed infusion; IV Intake: [id number] Medication: 17:41 VIS not applicable for this client. eh3 Intake: 17:40 IV: 50ml; Total: 50ml. eh3 Outcome: 17:14 Discharge ordered by . snw 17:43 Discharged to home ambulatory. eh3 17:43 Condition: stable 17:43 Discharge instructions given to patient, Instructed on discharge instructions, follow up and referral plans. medication usage, Demonstrated understanding of instructions, follow-up care, medications, Prescriptions given X 1. 17:51 Patient left the ED. 3 Addendum: 07/06/2022 10:00 Addendum: Culture Results: Positive urine culture. Bacteria is resistant to, has s s intermediate sensitivity, or is not tested against prescribed antibiotics. Report given to LILLIAN for further evaluation and then to survival specialist for follow up with patient. Phone call Attempt #1 Called and spoke with patient who states that she is feeling a little better, but not 100%. Called in Levaquin 250 mg 1 tab PO DAILY x 7 days as recommended by Quinn Lal MD. Pt verbalized understanding to stop taking Augmentin now and to start Levaquin as soon as she picks it up from pharmacy. Called in prescription to [facility] pharmacy upon patient request. Signatures: Dispatcher [employer] EDMS Caridad Blackman, BACKER UP-C BACKER UP-Csnw Yadira Barbosa, CHRISTAL RN Swetha Andersen Lynsay, RN RN ll1 Jane Hi RN RN eh3
--- NOTE | 2022-07-01 17:15 | EDPHYS ---
Physician Documentation [facility] Name: Sirena Nolan Age: 82 yrs Sex: Female : 1940 Arrival Date: 07/01/2022 Time: 15:18 Bed 27 Private MD: Yancy Smith ED Physician Caleb Cross HPI: 07/01 15:38 This 82 yrs old Female presents to ER via Ambulatory with complaints of kidney snw infection. 15:38 pt states dysuria and some left flank pain x 1.5mo. No fever. Sees Dr. Smith, directed snw to ED. Onset: The symptoms/episode began/occurred acutely. Severity of symptoms: At their worst the symptoms were moderate. It is unknown whether or not the patient has had similar symptoms in the past. The patient has been recently seen by a physician: the patient's primary care provider, with different complaint(s), on O2 at home chronically. Historical: - Allergies: 15:24 Codeine; ll1 15:24 Morphine; ll1 15:24 Prednisone; ll1 - Home Meds: 17:41 anoro 62.5/25mg [Active]; Aspirin Oral [Active]; atorvastatin 10 mg Oral tab [Active]; eh3 ferrous sulfate 325 mg (65 mg iron) Oral tab [Active]; Lexapro 20 mg Oral tab [Active]; melatonin 10 mg Oral cap [Active]; Primidone Oral [Active]; Protonix 40 mg Oral grps [Active]; sertraline 50 mg Oral tab [Active]; topiramate Oral [Active]; Ventolin Rotahaler/Rotacaps Inhl [Active]; Vitamin B-12 Oral 1000 mcg [Active]; Vitamin D Oral [Active]; - PMHx: 15:24 Anxiety; Hypertension; Myocardial infarction; essential body tremors; COPD; Pneumonia; ll1 - PSHx: 15:30 Hip SX; hysterectomy; ll1 - Immunization history:: Client reports receiving the 2nd dose of the Covid vaccine. - Social history:: Smoking status: Patient denies any tobacco usage or history of. ROS: 15:40 Constitutional: Negative for fever, chills, and weight loss, Eyes: Negative for injury, snw pain, redness, and discharge, ENT: Negative for injury, pain, and discharge, Neck: Negative for injury, pain, and swelling, Cardiovascular: Negative for chest pain, palpitations, and edema, Respiratory: Negative for shortness of breath, cough, wheezing, and pleuritic chest pain, Abdomen/GI: Negative for abdominal pain, nausea, vomiting, diarrhea, and constipation, Back: Negative for injury and pain, MS/Extremity: Negative for injury and deformity, Skin: Negative for injury, rash, and discoloration, Neuro: Negative for headache, weakness, numbness, tingling, and seizure, Psych: Negative for depression, anxiety, suicide ideation, homicidal ideation, and hallucinations. 15:40 : Positive for urinary symptoms, flank pain. Exam: 15:40 Constitutional: This is a well developed, well nourished patient who is awake, alert, snw and in no acute distress. Head/Face: Normocephalic, atraumatic. Eyes: Pupils equal round and reactive to light, extra-ocular motions intact. Lids and lashes normal. Conjunctiva and sclera are non-icteric and not injected. Cornea within normal limits. Periorbital areas with no swelling, redness, or edema. ENT: Nares patent. No nasal discharge, no septal abnormalities noted. Tympanic membranes are normal and external auditory canals are clear. Oropharynx with no redness, swelling, or masses, exudates, or evidence of obstruction, uvula midline. Mucous membranes moist. Neck: Trachea midline, no thyromegaly or masses palpated, and no cervical lymphadenopathy. Supple, full range of motion without nuchal rigidity, or vertebral point tenderness. No Meningismus. Chest/axilla: Normal chest wall appearance and motion. Nontender with no deformity. No lesions are appreciated. Cardiovascular: Regular rate and rhythm with a normal S1 and S2. No gallops, murmurs, or rubs. Normal PMI, no JVD. No pulse deficits. Respiratory: Lungs have equal breath sounds bilaterally, clear to auscultation and percussion. No rales, rhonchi or wheezes noted. No increased work of breathing, no retractions or nasal flaring. Abdomen/GI: Soft, non-tender, with normal bowel sounds. No distension or tympany. No guarding or rebound. No evidence of tenderness throughout. 15:40 Skin: Warm, dry with normal turgor. Normal color with no rashes, no lesions, and no evidence of cellulitis. MS/ Extremity: Pulses equal, no cyanosis. Neurovascular intact. Full, normal range of motion. Neuro: Awake and alert, GCS 15, oriented to person, place, time, and situation. Cranial nerves II-XII grossly intact. Motor strength 5/5 in all extremities. Sensory grossly intact. Cerebellar exam normal. Normal gait. Psych: Awake, alert, with orientation to person, place and time. Behavior, mood, and affect are within normal limits. 15:40 Back: pain, that is mild, of the left mid back. Vital Signs: 15:24 BP 154 / 99; Pulse 114; Resp 19; Temp 98.8; Pulse Ox 97% on 2 lpm NC; Weight 40.82 kg; ll1 Height 5 ft. 2 in. (157.48 cm); Pain 10/10; 15:48 BP 140 / 104; Pulse 94; Resp 18; Pulse Ox 99% on R/A; eh3 16:15 BP 138 / 79; Pulse 91; Resp 18; Pulse Ox 100% on R/A; eh3 17:00 BP 102 / 86; Pulse 97; Resp 13; Pulse Ox 100% on R/A; eh3 15:24 Body Mass Index 16.46 (40.82 kg, 157.48 cm) ll1 MDM: 15:30 Patient medically screened. snw 17:15 Data reviewed: vital signs, nurses notes. Data interpreted: Pulse oximetry: on room air snw is 100 %. Interpretation: normal. Counseling: I had a detailed discussion with the patient and/or guardian regarding: the historical points, exam findings, and any diagnostic results supporting the discharge/admit diagnosis, the presence of at least one elevated blood pressure reading (>120/80) during this emergency department visit, lab results, radiology results, the need for outpatient follow up, to return to the emergency department if symptoms worsen or persist or if there are any questions or concerns that arise at home. Special discussion: Based on the patient's Hx, exam, and Dx evaluation, there is no indication for emergent surgery or inpatient Tx. It is understood by the patient/guardian that if the Sx's persist or worsen they need to return immediately for re-evaluation. I have referred the patient to see his PCP for further evaluation of high blood pressure. Based on the history and exam findings, there is no indication for further emergent testing or inpatient evaluation. I discussed with the patient/guardian the need to see the primary care provider for further evaluation of the symptoms. 07/01 15:36 Order name: Blood Culture Adult (2) snw 07/01 15:36 Order name: CBC with Diff; Complete Time: 17:12 snw 07/01 15:36 Order name: CMP; Complete Time: 17:20 snw 07/01 15:36 Order name: Lactate w/ 2H reflex if indic.; Complete Time: 17:17 snw 07/01 15:36 Order name: Protime (+inr); Complete Time: 17:12 snw 07/01 15:36 Order name: Ptt, Activated; Complete Time: 17:12 snw 07/01 15:36 Order name: Urine Culture snw 07/01 15:36 Order name: Chest Single View XRAY; Complete Time: 16:47 snw 07/01 15:36 Order name: EKG; Complete Time: 15:37 snw 07/01 15:36 Order name: Accucheck; Complete Time: 17:03 snw 07/01 15:36 Order name: Urine Microscopic Only: cath specimen; Complete Time: 17:12 snw 07/01 16:57 Order name: Urine Dipstick-Ancillary; Complete Time: 16:59 EDMS 07/01 17:14 Order name: Glucose, Ancillary Testing; Complete Time: 17:15 EDMS 07/01 15:36 Order name: Cardiac monitoring; Complete Time: 15:58 snw 07/01 15:36 Order name: EKG - Nurse/Tech; Complete Time: 16:14 snw 07/01 15:36 Order name: IV Saline Lock - Large Bore; Complete Time: 16:58 snw 07/01 15:36 Order name: Labs collected and sent; Complete Time: 16:58 snw 07/01 15:36 Order name: O2 Per Protocol; Complete Time: 15:58 snw 07/01 15:36 Order name: O2 Sat Monitoring; Complete Time: 15:58 snw 07/01 15:36 Order name: Vital Signs; Complete Time: 15:59 snw 07/01 15:36 Order name: [place]; Complete Time: 17:15 snw EC:18 Rate is 96 beats/min. Rhythm is irregular. QRS interval is prolonged. Clinical snw impression: Abnormal EKG without significant change. Administered Medications: 17:23 Drug: Rocephin (cefTRIAXone) 1 grams Route: IV; Rate: calculated rate; Site: right 3 antecubital; 17:40 Follow up: Response: No adverse reaction; IV Status: Completed infusion; IV Intake: [id number] Disposition Summary: 07/01/22 17:14 Discharge Ordered Location: Home snw Condition: Stable snw Diagnosis - UTI/ Urinary tract infection, site not specified snw Followup: snw - With: Emergency Department - When: As needed - Reason: Worsening of condition Followup: snw - With: Yancy Smith MD - When: 1 - 2 days - Reason: Recheck today's complaints, Continuance of care, Re-evaluation by your physician Discharge Instructions: - Discharge Summary Sheet snw - Dysuria snw - Urinary Tract Infection, Adult snw - Rehydration, Adult snw Forms: - Medication Reconciliation Form snw - Thank You Letter snw - Antibiotic Education snw - Prescription Opioid Use snw Prescriptions: - Augmentin 875-125 mg Oral Tablet - take 1 tablet by ORAL route every 12 hours for 10 days; 20 tablet; Refills: 0, snw Product Selection Permitted Addendum: 07/06/2022 04:21 Co-signature as Attending Physician, Caleb Cross MD I agree with the assessment and r t plan of care. Signatures: Dispatcher [employer] Caridad Alexis FNP-[place] PRISONER CLASSIFICATION INTERVIEWER-Shubhamw Bulmaro Alvarado RN RN 1 Jane Hi RN RN 3 Caleb Cross MD MD rt
[2022-07-01 17:18] LABS: Albumin 3.9 g/dL (3.4-5.0); Bilirubin Total 0.2 mg/dL (0.2-1.0); Protein, Total 7.5 g/dL (6.4-8.2)
[2022-07-01 18:08] VITALS: TEMP 98.8
[2022-07-01 18:19] VITALS: O2SAT 100
[2022-07-01 18:25] VITALS: BP 102/86
--- NOTE | 2022-07-02 13:22 | EKG ---
Test Date: 2022-07-01 Test Time: 16:11:40 Wing Coverer: MORENO MEASUREMENT RESULTS: Intervals: Rate: 96 LA: QRSD: 78 QT: 348 QTc: 439 [place]: P: LA: QRS: 68 T: 83 INTERPRETIVE STATEMENTS: Atrial flutter with variable AV block with premature ventricular or aberrantly conducted complexes Abnormal ECG Compared to ECG 03/01/2021 14:42:45 Ventricular premature complex(es) now present Sinus rhythm no longer present Sinus arrhythmia no longer present Prolonged QT interval no longer present Electronically Signed On 07-02-22 13:21:03 RATE SETTER by Stephen Jin
== END 2022-07-01 17:51 | disposition home or self-care (01) ==
LOC: ER 15:17
DX: N39.0 Urinary tract infection, site not specified (principal); I10 Essential (primary) hypertension; Z88.5 Allergy status to narcotic agent; Z88.8 Allergy status to other drugs, medicaments and biological substances
CPT/HCPCS: 36415; 71045; 80053; 81003; 81015; 82947; 83605; 85025; 85610; 85730; 87040; 87077; 87086; 87088; 87186; 93005; 96365; 99284